=== PATIENT | female | born 1975 | race African-American/Black ===

== ENCOUNTER 2023-11-06 06:47 | Inpatient (IN) | payer MEDICAID, OTHER ==
[~2023-11-06] VITALS: Ht 167.6 cm; Wt 140.0 kg
[2023-11-06 07:40] LABS: Basophils # (auto) 0.1 10 ^3/uL (0-0.2); Eosinophils # (auto) 0 10 ^3/uL (0-0.8); Red Blood Cells 5.23 10^6/uL (4.0-5.20); Red Cell Distribution Width 19.8 % (11.8-14.3)
[2023-11-06 07:41] LABS: Basophils % (auto) 0.8 % (0.0-2.0); Eosinophils % (auto) 0.3 % (0.0-7.0); Hematocrit 34.9 % (36.0-46.0); Hemoglobin 10.3 g/dL (12.2-16.2); Lymphocytes # (auto) 2.1 10 ^3/uL (0.4-5.4); Lymphocytes % (auto) 18.3 % (10.0-50.0); Mean Corpuscular Hemoglobin 19.8 pg (28.0-32.0); Mean Corpuscular Hgb Conc. 29.6 g/dL (32.0-36.0); Mean Corpuscular Volume 66.8 fL (80.0-100.0); Monocytes # (auto) 0.5 10 ^3/uL (0-1.3); Monocytes % (auto) 4.7 % (0.0-12.0); Neutrophils # (auto) 8.9 10 ^3/uL (1.6-8.6); Neutrophils % (auto) 75.9 % (37.0-80.0); Nucleated Red Blood Cells % 0.1 %; White Blood Cell 11.7 10^3/uL (4.4-10.8)
[2023-11-06 07:53] LABS: Alanine Aminotransferase 11 U/L (7-40); Albumin 4.6 g/dL (3.2-4.8); Alkaline Phosphatase 85 U/L (46-116); Anion Gap 10 (5-15); Aspartate Aminotransferase 12 U/L (13-40); BUN/Creatinine Ratio 10.8 (10.0-20.0); Blood Urea Nitrogen 13 mg/dL (9-23); Calcium 9.9 mg/dL (8.5-10.1); Carbon Dioxide 22 mmol/L (20-30); Chloride 102 mmol/L (98-107); Glucose 205 mg/dL (74-106); Potassium 3.6 mmol/L (3.5-5.1); Sodium 134 mmol/L (136-145)
[2023-11-06 07:54] LABS: Bilirubin, Total 0.3 mg/dL (0.2-1.0); Total Protein 8.9 g/dL (5.7-8.2)
[2023-11-06 08:51] VITALS: PULSE 73; RESP 18; O2SAT 97
[2023-11-06] MEDS: PANTOPRAZOLE 40 MG/10 ML VIAL INJ IV ONE (09:05)
[2023-11-06] MEDS: PROCHLORPERAZINE EDISYLATE 5 MG/ML 2ML VIAL IV ONE (09:05)
[2023-11-06] MEDS: ASPirin 81 mg TAB PO ONE (09:05)
[2023-11-06 09:24] LABS: Hypochromia Marked; Platelet Estimate Increased
[2023-11-06 09:25] VITALS: PULSE 72; RESP 25; O2SAT 99
[2023-11-06] MEDS ORDERED: MORPHINE SULFATE 4 MG/ML SYR/VIAL IV PRN (11:00)
[2023-11-06] MEDS ORDERED: ACETAMINOPHEN 325 MG TAB PO PRN (11:00)
[2023-11-06] MEDS ORDERED: NITROGLYCERIN 0.4 MG SL TAB SL PRN (11:00)
[2023-11-06] MEDS: hydrALAZINE HCL 20 MG/ML VL IV ONE (11:53)
[2023-11-06] MEDS: ONDANSETRON HCL 4 MG/2 ML VIAL IV ONE (11:53)
[2023-11-06] MEDS: MORPHINE SULFATE 4 MG/ML SYR/VIAL IV ONE (11:55)
[2023-11-06] MEDS: ENOXAPARIN SOD 150 MG/1 ML SYRINGE SC SCH (11:59)
[2023-11-06 12:33] LABS: LDL Cholesterol 86 mg/dL (< 100); Triglycerides 60 mg/dL (< 150)
[2023-11-06 12:34] LABS: Cholesterol 147 mg/dL (< 200)
[2023-11-06 12:35] LABS: HDL Cholesterol 53 mg/dL (40-59)
[2023-11-06] MEDS ORDERED: DEXTROSE (50%) 50ML SYRG IV PRN (13:15)
[2023-11-06 13:42] LABS: INR 1.08 (0.9-1.15); Prothrombin Time 11.3 sec (9.3-11.8)
[2023-11-06] MEDS ORDERED: PIPERACILLIN-TAZOB 3.375GM 100 ML IV ONE (14:15)
[2023-11-06] MEDS: PIPERACILLIN-TAZOB 3.375GM 100 ML IV ONE (14:33)
[2023-11-06] MEDS: IOHEXOL 350 MG/ML 100ML IJ ONE (14:46)
[2023-11-06] MEDS: hydrALAZINE HCL 20 MG/ML VL IV PRN (14:52)
[2023-11-06] MEDS: SODIUM CHLORIDE 0.9% 1,000 ML IV ONE ×2 (16:18→18:45)
[2023-11-06] MEDS ORDERED: TRIA1CAP5 PO (16:44)
[2023-11-06] MEDS: ONDANSETRON HCL 4 MG/2 ML VIAL IV PRN (17:24)
[2023-11-06] MEDS: HYDROmorphone HCL 2 MG/ML VL/or syr IV PRN (17:24)
[2023-11-06] MEDS ORDERED: PIPERACILLIN-TAZOB 3.375GM 100 ML IV SCH (18:00)
[2023-11-06] MEDS: ACCU-CHEK COMFORT CURVE STRIP VI SCH (18:00)
[2023-11-06] MEDS: amLODIPine BESYLATE 5 MG TAB PO ONE (18:44)
[2023-11-06] MEDS: LABETALOL HCL 5 MG/ML 4ML SYRINGE IV ONE (18:45)
[2023-11-06] MEDS: InsuLIN REG 1unit/0.01ml Soln (100units/ml) SC SCH (18:47)
[2023-11-06 19:30] VITALS: PULSE 79; RESP 22; O2SAT 94
[2023-11-06] MEDS: METOPROLOL TARTRATE 25 MG TAB PO SCH (21:04)
[2023-11-06] MEDS: ATORVASTATIN 20 MG TAB PO SCH (21:04)
[2023-11-06] MEDS: PIPERACILLIN-TAZOB 3.375GM 100 ML IV SCH (21:04)
[2023-11-07] VITALS (9 sets, daily range): BP systolic 99–169; BP diastolic 56–105; PULSE 109–135; RESP 19–22; TEMP 97.3–98.6; O2SAT 98–100
[2023-11-07] MEDS ORDERED: SEMA2INJ3 SC (01:24)
[2023-11-07 07:21] LABS: Hematocrit 33.2 % (36.0-46.0); Hemoglobin 10.1 g/dL (12.2-16.2)
[2023-11-07 07:27] LABS: Mean Corpuscular Hemoglobin 20.1 pg (28.0-32.0); Mean Corpuscular Hgb Conc. 30.4 g/dL (32.0-36.0); Mean Corpuscular Volume 65.9 fL (80.0-100.0); Red Blood Cells 5.04 10^6/uL (4.0-5.20); Red Cell Distribution Width 19.9 % (11.8-14.3)
[2023-11-07 07:30] LABS: Alanine Aminotransferase 13 U/L (7-40); Albumin 4.2 g/dL (3.2-4.8); Alkaline Phosphatase 81 U/L (46-116); Anion Gap 9 (5-15); Aspartate Aminotransferase 32 U/L (13-40); BUN/Creatinine Ratio 13.4 (10.0-20.0); Blood Urea Nitrogen 16 mg/dL (9-23); Calcium 9.1 mg/dL (8.5-10.1); Carbon Dioxide 23 mmol/L (20-30); Chloride 105 mmol/L (98-107); Glucose 181 mg/dL (74-106); LDL Cholesterol 126 mg/dL (< 100); Potassium 3.6 mmol/L (3.5-5.1); Sodium 137 mmol/L (136-145); Triglycerides 71 mg/dL (< 150)
[2023-11-07 07:31] LABS: Bilirubin, Total 0.6 mg/dL (0.2-1.0); Cholesterol 191 mg/dL (< 200); HDL Cholesterol 54 mg/dL (40-59); Total Protein 8.2 g/dL (5.7-8.2)
[2023-11-07 07:49] LABS: White Blood Cell 45.2 10^3/uL (4.4-10.8)
[2023-11-07 07:50] LABS: Basophils % (manual) 0 (0.0-2.0); Blast Cells 0; Eosinophils % (manual) 0 (0-7); Metamyelocytes % 0; Myelocytes % 0; Promyelocytes % 0; Reactive Lymphocytes 0
[2023-11-07] MEDS: ADENOSINE 135 MG in GIVE UN-DILUTED 0 ML IV ONE (08:00)
[2023-11-07 09:00] LABS: Band Neutrophils % (manual) 17; Lymphocytes % (manual) 4 (10.0-50.0); Monocytes % (manual) 13 (0-12)
[2023-11-07 09:02] LABS: Hypochromia Moderate; Platelet Estimate Increased
[2023-11-07] MEDS: DOCUSATE SOD 100 MG CAP PO SCH (10:00)
[2023-11-07] MEDS ORDERED: ASPirin 81 mg TAB PO SCH (10:00)
[2023-11-07] MEDS ORDERED: amLODIPine BESYLATE 5 MG TAB PO SCH (10:00)
[2023-11-07 12:02] LABS: Sodium Urine < 10 mmol/L (40-220)
[2023-11-07 12:09] LABS: Amphetamine Screen, Urine Neg (NEGATIVE)
[2023-11-07 12:10] LABS: Barbiturate Scree,Urine Neg (NEGATIVE); Benzodiazephine Screen, Urine Neg (NEGATIVE); Cannabinoid Screen, Urine Pos (NEGATIVE); Cocaine Screen, Urine Neg (NEGATIVE); Opiate Scree,Urine Pos (NEGATIVE); Phencyclidine Screen, Urine Neg (NEGATIVE)
[2023-11-07 12:20] LABS: Creatinine, Urine 303.81 mg/dL (30.0-125.0)
[2023-11-07 12:42] LABS: Urine Bacteria FEW /hpf (None Seen); Urine Blood Negative /uL (Negative); Urine Clarity Turbid (Clear); Urine Color Yellow (Yellow); Urine Mucus FEW (None Seen); Urine Protein, UAD 1+ (Negative); Urine Specific Gravity 1.031 (1.001-1.035); Urine Urobilinogen Normal (Negative); Urine WBC 6 /hpf (0 - 5)
[2023-11-07] MEDS: PANTOPRAZOLE 40 MG/10 ML VIAL INJ IV ONE (12:49)
[2023-11-07] MEDS: HYDROmorphone HCL 2 MG/ML VL/or syr IV PRN (12:50)
[2023-11-07 12:53] LABS: Hematocrit 35.4 % (36.0-46.0); Hemoglobin 10.5 g/dL (12.2-16.2); Mean Corpuscular Hemoglobin 20.1 pg (28.0-32.0); Mean Corpuscular Hgb Conc. 29.8 g/dL (32.0-36.0); Mean Corpuscular Volume 67.5 fL (80.0-100.0); Red Blood Cells 5.24 10^6/uL (4.0-5.20)
[2023-11-07] MEDS: SODIUM CHLORIDE 0.9% 1,000 ML IV SCH (12:57)
[2023-11-07 12:58] LABS: Red Cell Distribution Width 20.1 % (11.8-14.3)
[2023-11-07 13:01] LABS: White Blood Cell 44.7 10^3/uL (4.4-10.8)
[2023-11-07 13:02] LABS: Basophils % (manual) 0 (0.0-2.0); Blast Cells 0; Eosinophils % (manual) 0 (0-7); Metamyelocytes % 0; Myelocytes % 0; Promyelocytes % 0; Reactive Lymphocytes 0
[2023-11-07 14:34] LABS: Band Neutrophils % (manual) 15; Lymphocytes % (manual) 8 (10.0-50.0); Monocytes % (manual) 4 (0-12)
[2023-11-07 14:35] LABS: Platelet Estimate Adequate
[2023-11-07 14:36] LABS: Anisocytosis Slight; Hypochromia Moderate
[2023-11-08] VITALS (25 sets, daily range): BP systolic 89–182; BP diastolic 33–105; PULSE 95–118; RESP 18–36; TEMP 97.8–101.3; O2SAT 96–100
[2023-11-08 07:12] LABS: Alanine Aminotransferase 11 U/L (7-40); Albumin 3.9 g/dL (3.2-4.8); Alkaline Phosphatase 118 U/L (46-116); Anion Gap 8 (5-15); BUN/Creatinine Ratio 14.7 (10.0-20.0); Calcium 9.1 mg/dL (8.7-10.4); Carbon Dioxide 22 mmol/L (20-30); Chloride 106 mmol/L (98-107); Glucose 142 mg/dL (74-106); Potassium 3.7 mmol/L (3.5-5.1); Sodium 136 mmol/L (136-145)
[2023-11-08 07:13] LABS: Aspartate Aminotransferase 26 U/L (13-40); Bilirubin, Total 0.9 mg/dL (0.2-1.0); Total Protein 7.8 g/dL (5.7-8.2)
[2023-11-08 07:14] LABS: Mean Corpuscular Volume 67.6 fL (80.0-100.0)
[2023-11-08 07:18] LABS: Hematocrit 34.1 % (36.0-46.0); Hemoglobin 10.1 g/dL (12.2-16.2); Mean Corpuscular Hgb Conc. 29.5 g/dL (32.0-36.0); Red Blood Cells 5.05 10^6/uL (4.0-5.20)
[2023-11-08 07:24] LABS: Blood Urea Nitrogen 29 mg/dL (9-23)
[2023-11-08 07:35] LABS: Red Cell Distribution Width 20.8 % (11.8-14.3)
[2023-11-08 07:37] LABS: White Blood Cell 45.6 10^3/uL (4.4-10.8)
[2023-11-08 07:39] LABS: Basophils % (manual) 0 (0.0-2.0); Blast Cells 0; Eosinophils % (manual) 0 (0-7); Metamyelocytes % 0; Myelocytes % 0; Promyelocytes % 0; Reactive Lymphocytes 0
[2023-11-08 08:06] LABS: Band Neutrophils % (manual) 1; Lymphocytes % (manual) 3 (10.0-50.0); Monocytes % (manual) 7 (0-12); Platelet Estimate Adequate
[2023-11-08] MEDS: PANTOPRAZOLE 40 MG/10 ML VIAL INJ IV SCH (10:29)
[2023-11-08] MEDS ORDERED: SODIUM CHLORIDE 0.9% 1,000 ML IV SCH ×3 (10:30→17:15)
[2023-11-08] MEDS: LIDOCAINE 2%HCL (LOCAL ANESTH.) INJ 10ml MDV ONE (12:20)
[2023-11-08] MEDS: CELECOXIB 100 MG CAP PO ONE (12:21)
[2023-11-08] MEDS: ACETAMINOPHEN IV 1000 MG/100ML (10MG/ML) IV ONE (12:21)
[2023-11-08] MEDS: GABAPENTIN 400 MG CAP PO ONE (12:21)
[2023-11-08] MEDS: EPINEPHrine HCL 1 MG/1 ML AMP ONE (12:45)
[2023-11-08] MEDS: BUPIVACAINE 0.25% INJ 50ML VIAL ONE (12:45)
[2023-11-08] MEDS ORDERED: GLYCOPYRROLATE 0.2 MG/ML 1ML VIAL ONE (12:49)
[2023-11-08] MEDS ORDERED: LIDOCAINE 2% (LOCAL ANESTH.) PF 5ml SDV ONE (12:49)
[2023-11-08] MEDS ORDERED: ONDANSETRON HCL 4 MG/2 ML VIAL ONE (12:49)
[2023-11-08] MEDS ORDERED: DexAMETHasone SOD PHOS 10MG/1ML VIAL INJ ONE (12:49)
[2023-11-08] MEDS ORDERED: PROPOFOL 10 MG/ML 20 ML IV ONE ×2 (12:49→14:18)
[2023-11-08] MEDS ORDERED: ROCURONIUM 10MG/ML 10ML VIAL IV ONE (12:49)
[2023-11-08] MEDS ORDERED: SUGAMMADEX 200mg/2ml Vial (100MG/ML) IV ONE (12:49)
[2023-11-08] MEDS ORDERED: LIDOCAINE HCL 2% TOP JELLY 5ML TOP ONE (12:50)
[2023-11-08] MEDS ORDERED: fentaNYL CITRATE 100 MCG/2 ML VL ONE (12:52)
[2023-11-08] MEDS ORDERED: KETAMINE 50mg/ML 1ml syringe ONE (12:52)
[2023-11-08] MEDS ORDERED: DICL1GEL59 TOP (13:31)
[2023-11-08] MEDS ORDERED: TOPI50TA53 PO (13:31)
[2023-11-08] MEDS ORDERED: GABA-339 PO (13:31)
[2023-11-08] MEDS ORDERED: HYDR25TA4 PO (13:31)
[2023-11-08] MEDS ORDERED: CYCL-839 PO (13:31)
[2023-11-08] MEDS ORDERED: RIZA10TA12 PO (13:31)
[2023-11-08] MEDS ORDERED: HYDR1CAP27 PO (13:31)
[2023-11-08] MEDS ORDERED: TRI05TP TOP (13:31)
[2023-11-08] MEDS: HEPARIN SODIUM (PORCINE) 5000 UNITS/ML 1ML VIAL ONE ×2 (14:15→20:45)
[2023-11-08] MEDS: POVIDONE IODINE 10 % TOPICAL OINT 30GM TOP ONE (14:20)
[2023-11-08] MEDS ORDERED: MORPHINE SULFATE 4 MG/ML SYR/VIAL IV PRN (15:00)
[2023-11-08] MEDS ORDERED: MIDAZOLAM DRIP 50 mg/50mL 50 ML IV SCH (15:00)
[2023-11-08] MEDS ORDERED: POTASSIUM CHLORIDE 20 MEQ in D5W/LACTATED RINGERS 1,000 ML IV SCH (15:00)
[2023-11-08 16:10] LABS: Base Excess -5.6 mmol/L (-2.0-2.0)
[2023-11-08 17:12] LABS: Albumin 3.7 g/dL (3.2-4.8); Alkaline Phosphatase 87 U/L (46-116); Anion Gap 6 (5-15); Aspartate Aminotransferase 22 U/L (13-40); Blood Urea Nitrogen 26 mg/dL (9-23); Calcium 8.9 mg/dL (8.7-10.4); Carbon Dioxide 21 mmol/L (20-30); Chloride 108 mmol/L (98-107); Glucose 164 mg/dL (74-106); Potassium 4.1 mmol/L (3.5-5.1); Sodium 135 mmol/L (136-145)
[2023-11-08 17:13] LABS: Alanine Aminotransferase 9 U/L (7-40); Bilirubin, Total 0.9 mg/dL (0.2-1.0); Total Protein 7.1 g/dL (5.7-8.2)
[2023-11-08 17:18] LABS: INR 1.08 (0.9-1.15); Prothrombin Time 11.3 sec (9.3-11.8)
[2023-11-08 17:22] LABS: Hematocrit 35.4 % (36.0-46.0); Hemoglobin 9.9 g/dL (12.2-16.2); Mean Corpuscular Hemoglobin 19.4 pg (28.0-32.0); Mean Corpuscular Hgb Conc. 27.9 g/dL (32.0-36.0); Mean Corpuscular Volume 69.6 fL (80.0-100.0); Red Blood Cells 5.08 10^6/uL (4.0-5.20)
[2023-11-08 17:23] LABS: Red Cell Distribution Width 20.3 % (11.8-14.3)
[2023-11-08 17:25] LABS: Basophils % (manual) 0 (0.0-2.0); Blast Cells 0; Eosinophils % (manual) 0 (0-7); Metamyelocytes % 0; Myelocytes % 0; Promyelocytes % 0; Reactive Lymphocytes 0; White Blood Cell 36.1 10^3/uL (4.4-10.8)
[2023-11-08] MEDS: SODIUM BICARB 50mEq/50ml Vial 50 ML in SOD CHL 0.45% 1,000 ML IV SCH (17:45)
[2023-11-08] MEDS: hydrALAZINE HCL 20 MG/ML VL IV ONE (18:00)
[2023-11-08] MEDS: SODIUM CHLORIDE 0.9% 1,000 ML IV ONE (18:18)
[2023-11-08 18:38] LABS: Anisocytosis Slight; Band Neutrophils % (manual) 25; Lymphocytes % (manual) 10 (10.0-50.0); Monocytes % (manual) 1 (0-12); Platelet Estimate Adequate
[2023-11-08 18:39] LABS: Hypochromia Moderate
[2023-11-08] MEDS: LIDOCAINE W/ EPINEPHRINE 1% 20ML VIAL ONE (20:44)
[2023-11-08] MEDS: metroNIDAZOLE 500MG/100ML 100 ML IV ONE (20:44)
[2023-11-08 20:58] LABS: Base Excess -1.9 mmol/L (-2.0-2.0)
[2023-11-08] MEDS: PROPOFOL 100 ML IV SCH (21:33)
[2023-11-08] MEDS ORDERED: ceFAZolin 2 GM/D5W50ml 50 ML IV SCH (22:00)
[2023-11-08] MEDS ORDERED: metroNIDAZOLE 500MG/100ML 100 ML IV SCH (22:00)
[2023-11-08 22:11] LABS: INR 1.09 (0.9-1.15); Partial Thromboplastin Time 33.2 SEC (24.5-34.5); Prothrombin Time 11.4 sec (9.3-11.8)
[2023-11-08] MEDS: HEPARIN DRIP/D5W 100UNITS/ML 250 ML IV SCH (22:27)
[2023-11-09] VITALS (105 sets, daily range): BP systolic 129–197; BP diastolic 64–151; PULSE 85–109; RESP 17–30; TEMP 97.5–101.1; O2SAT 92–100
[2023-11-09 01:14] LABS: Creatinine, Urine 133.82 mg/dL (30.0-125.0); Urine Protein/Creatinine Ratio 0.45
[2023-11-09] MEDS: ACETAMINOPHEN 325 MG TAB PO PRN (01:54)
[2023-11-09] MEDS: MIDAZOLAM DRIP 50 mg/50mL 50 ML IV SCH (01:54)
[2023-11-09 05:25] LABS: Hematocrit 30.6 % (36.0-46.0); Hemoglobin 9.1 g/dL (12.2-16.2); Mean Corpuscular Hgb Conc. 29.7 g/dL (32.0-36.0); Mean Corpuscular Volume 67.2 fL (80.0-100.0); Red Blood Cells 4.56 10^6/uL (4.0-5.20)
[2023-11-09 05:27] LABS: Red Cell Distribution Width 20.3 % (11.8-14.3)
[2023-11-09 05:29] LABS: Basophils % (manual) 0 (0.0-2.0); Blast Cells 0; Eosinophils % (manual) 0 (0-7); Metamyelocytes % 0; Myelocytes % 0; Promyelocytes % 0; Reactive Lymphocytes 0; White Blood Cell 40.5 10^3/uL (4.4-10.8)
[2023-11-09 05:42] LABS: Alanine Aminotransferase 10 U/L (7-40); Albumin 3.5 g/dL (3.2-4.8); Alkaline Phosphatase 77 U/L (46-116); Anion Gap 6 (5-15); Aspartate Aminotransferase 20 U/L (13-40); BUN/Creatinine Ratio 18.8 (10.0-20.0); Bilirubin, Total 0.7 mg/dL (0.2-1.0); Blood Urea Nitrogen 24 mg/dL (9-23); Calcium 8.6 mg/dL (8.7-10.4); Carbon Dioxide 23 mmol/L (20-30); Chloride 108 mmol/L (98-107); Glucose 168 mg/dL (74-106); INR 1.04 (0.9-1.15); Partial Thromboplastin Time 44.7 SEC (24.5-34.5); Potassium 3.9 mmol/L (3.5-5.1); Prothrombin Time 10.9 sec (9.3-11.8); Sodium 137 mmol/L (136-145); Total Protein 6.7 g/dL (5.7-8.2)
[2023-11-09 06:13] LABS: Band Neutrophils % (manual) 3; Hypochromia Moderate; Lymphocytes % (manual) 2 (10.0-50.0); Monocytes % (manual) 6 (0-12); Platelet Estimate Adequate
[2023-11-09 06:14] LABS: Anisocytosis Slight
[2023-11-09] MEDS: HEPARIN DRIP/D5W 100UNITS/ML 250 ML IV SCH (06:42)
[2023-11-09] MEDS: SUCCINYLCHOLINE CHLORIDE 20 MG/ML 10ML VIAL IV ONE (07:08)
[2023-11-09] MEDS: ROCURONIUM 10MG/ML 10ML VIAL IV ONE (07:09)
[2023-11-09 07:16] LABS: Base Excess -3.4 mmol/L (-2.0-2.0)
[2023-11-09] MEDS ORDERED: fentaNYL CITRATE 100 MCG/2 ML VL ONE (07:26)
[2023-11-09] MEDS ORDERED: KETAMINE 50mg/ML 10ml Vial 10 ML ONE (07:27)
[2023-11-09] MEDS ORDERED: MEPERIDINE HCL (50 MG/ML) 1 ML VIAL ONE ×2 (07:27→09:08)
[2023-11-09] MEDS ORDERED: MIDAZOLAM HCL 2MG/2ML 2ml VIAL (1mg/ml) ONE (07:27)
[2023-11-09] MEDS ORDERED: DexAMETHasone SOD PHOS 10MG/1ML VIAL INJ ONE (07:27)
[2023-11-09] MEDS ORDERED: PROPOFOL 10 MG/ML 20 ML IV ONE (07:40)
[2023-11-09] MEDS: POVIDONE IODINE 10 % TOPICAL OINT 30GM TOP ONE (09:12)
[2023-11-09] MEDS: fentaNYL Drip 2500mCg/250mlNS 250 ML IV SCH (10:22)
[2023-11-09] MEDS ORDERED: ACETAMINOPHEN IV 1000 MG/100ML (10MG/ML) IV PRN (10:30)
[2023-11-09] MEDS: LIDOCAINE 1% (LOCAL ANESTH.) PF 5ml SDV ID ONE (11:36)
[2023-11-09] MEDS: NITROGLYCERIN 50MG/250ML 250 ML IV SCH (12:51)
[2023-11-09 14:04] LABS: INR 1.05 (0.9-1.15)
[2023-11-09 15:56] LABS: Hematocrit 27.2 % (36.0-46.0); Hemoglobin 8.3 g/dL (12.2-16.2); Mean Corpuscular Hemoglobin 20.1 pg (28.0-32.0); Mean Corpuscular Hgb Conc. 30.5 g/dL (32.0-36.0); Red Blood Cells 4.12 10^6/uL (4.0-5.20); Red Cell Distribution Width 19.9 % (11.8-14.3)
[2023-11-09 16:01] LABS: White Blood Cell 40.4 10^3/uL (4.4-10.8)
[2023-11-09 16:03] LABS: Basophils % (manual) 0 (0.0-2.0); Blast Cells 0; Eosinophils % (manual) 0 (0-7); Metamyelocytes % 0; Myelocytes % 0; Promyelocytes % 0; Reactive Lymphocytes 0
[2023-11-09 16:21] LABS: INR 1.01 (0.9-1.15); Partial Thromboplastin Time 57.2 SEC (24.5-34.5); Prothrombin Time 10.6 sec (9.3-11.8)
[2023-11-09 16:27] LABS: Band Neutrophils % (manual) 11; Lymphocytes % (manual) 5 (10.0-50.0); Monocytes % (manual) 4 (0-12)
[2023-11-09 16:29] LABS: Hypochromia Moderate; Platelet Estimate Adequate
[2023-11-09] MEDS ORDERED: CLINIMIX PER PHARMACY 0 ML IV SCH (17:30)
[2023-11-09] MEDS: AMINO ACID INFUSION IN D10W 1,000 ML IV SCH (21:35)
[2023-11-09] MEDS: SODIUM CHLOR 0.9% PF (SALINE LOCK) 10ML VIAL/SYR IV SCH (22:00)
[2023-11-09 22:12] LABS: INR 0.99 (0.9-1.15); Partial Thromboplastin Time 64.6 SEC (24.5-34.5); Prothrombin Time 10.4 sec (9.3-11.8)
[2023-11-10] VITALS (106 sets, daily range): BP systolic 112–165; BP diastolic 65–83; PULSE 84–98; RESP 18–21; TEMP 98.5–99.9; O2SAT 94–100
[2023-11-10 05:06] LABS: Hematocrit 24.4 % (36.0-46.0); Hemoglobin 7.3 g/dL (12.2-16.2); Mean Corpuscular Hemoglobin 19.9 pg (28.0-32.0); Mean Corpuscular Volume 66.4 fL (80.0-100.0); Red Blood Cells 3.67 10^6/uL (4.0-5.20)
[2023-11-10 05:11] LABS: Red Cell Distribution Width 20.1 % (11.8-14.3)
[2023-11-10 05:14] LABS: White Blood Cell 35.3 10^3/uL (4.4-10.8)
[2023-11-10 05:24] LABS: Alkaline Phosphatase 90 U/L (46-116); Anion Gap 6 (5-15); Calcium 8.1 mg/dL (8.7-10.4); Carbon Dioxide 27 mmol/L (20-30); Chloride 105 mmol/L (98-107); Glucose 163 mg/dL (74-106); Potassium 3.6 mmol/L (3.5-5.1); Prothrombin Time 10.5 sec (9.3-11.8); Sodium 138 mmol/L (136-145)
[2023-11-10 05:25] LABS: BUN/Creatinine Ratio 19.1 (10.0-20.0); Blood Urea Nitrogen 18 mg/dL (9-23); Magnesium 1.9 mg/dL (1.6-2.6)
[2023-11-10 05:26] LABS: Albumin 3.2 g/dL (3.2-4.8); Aspartate Aminotransferase 13 U/L (13-40); Partial Thromboplastin Time 79.1 SEC (24.5-34.5)
[2023-11-10 05:27] LABS: Alanine Aminotransferase < 9 U/L (7-40); Bilirubin, Total 0.4 mg/dL (0.2-1.0); Phosphorus 1.9 mg/dL (2.4-5.1); Total Protein 6.1 g/dL (5.7-8.2)
[2023-11-10 05:39] LABS: Basophils % (manual) 0 (0.0-2.0); Blast Cells 0; Eosinophils % (manual) 0 (0-7); Metamyelocytes % 0; Myelocytes % 0; Promyelocytes % 0; Reactive Lymphocytes 0
[2023-11-10 05:41] LABS: Band Neutrophils % (manual) 1; Lymphocytes % (manual) 6 (10.0-50.0); Monocytes % (manual) 6 (0-12)
[2023-11-10 05:42] LABS: Hypochromia Moderate; Platelet Estimate Adequate; Stomatocytes Few
[2023-11-10 07:23] LABS: Base Excess 2.9 mmol/L (-2.0-2.0)
[2023-11-10] MEDS: HEPARIN DRIP/D5W 100UNITS/ML 250 ML IV SCH (09:30)
[2023-11-10 10:54] LABS: Hematocrit 23.4 % (36.0-46.0); Hemoglobin 7.4 g/dL (12.2-16.2)
[2023-11-10] MEDS: POTASSIUM PHOSPHATE 44 MEQ in D5W 5% 250 ML IV ONE (11:00)
[2023-11-10] MEDS: PIPERACILLIN-TAZOB 3.375GM 100 ML IV ONE (15:19)
[2023-11-10 15:36] LABS: Hematocrit 29.4 % (36.0-46.0); Hemoglobin 8.4 g/dL (12.2-16.2)
[2023-11-10 15:47] LABS: INR 0.98 (0.9-1.15); Partial Thromboplastin Time 62.2 SEC (24.5-34.5); Prothrombin Time 10.3 sec (9.3-11.8)
[2023-11-10] MEDS: PIPERACILLIN-TAZOB 3.375GM 100 ML IV SCH (18:00)
[2023-11-10 21:59] LABS: Hemoglobin 7.7 g/dL (12.2-16.2)
[2023-11-10 22:01] LABS: Hematocrit 23.2 % (36.0-46.0)
[2023-11-10 23:58] LABS: INR 0.98 (0.9-1.15); Partial Thromboplastin Time 61.7 SEC (24.5-34.5); Prothrombin Time 10.3 sec (9.3-11.8)
[2023-11-11] VITALS (113 sets, daily range): BP systolic 104–159; BP diastolic 50–87; PULSE 78–100; RESP 15–26; TEMP 96.8–100.2; O2SAT 75–100
[2023-11-11 03:40] LABS: Hemoglobin 7.3 g/dL (12.2-16.2); Mean Corpuscular Volume 65.8 fL (80.0-100.0)
[2023-11-11 03:43] LABS: Hematocrit 24.8 % (36.0-46.0); Mean Corpuscular Hemoglobin 19.4 pg (28.0-32.0); Mean Corpuscular Hgb Conc. 29.5 g/dL (32.0-36.0); Red Blood Cells 3.76 10^6/uL (4.0-5.20); Red Cell Distribution Width 19.8 % (11.8-14.3)
[2023-11-11 03:48] LABS: White Blood Cell 30.3 10^3/uL (4.4-10.8)
[2023-11-11 03:50] LABS: Basophils % (manual) 0 (0.0-2.0); Blast Cells 0; Eosinophils % (manual) 0 (0-7); Promyelocytes % 0; Reactive Lymphocytes 0
[2023-11-11 03:57] LABS: Albumin 3.2 g/dL (3.2-4.8); Alkaline Phosphatase 88 U/L (46-116); Anion Gap 5 (5-15); Aspartate Aminotransferase 13 U/L (13-40); BUN/Creatinine Ratio 18.7 (10.0-20.0); Blood Urea Nitrogen 14 mg/dL (9-23); Calcium 8.4 mg/dL (8.7-10.4); Carbon Dioxide 30 mmol/L (20-30); Chloride 101 mmol/L (98-107); Glucose 163 mg/dL (74-106); Potassium 3.4 mmol/L (3.5-5.1); Sodium 136 mmol/L (136-145)
[2023-11-11 03:58] LABS: Alanine Aminotransferase < 9 U/L (7-40); Bilirubin, Total 0.5 mg/dL (0.2-1.0); Phosphorus 1.9 mg/dL (2.4-5.1); Total Protein 6.2 g/dL (5.7-8.2)
[2023-11-11 04:02] LABS: Magnesium 1.8 mg/dL (1.6-2.6)
[2023-11-11 04:35] LABS: Band Neutrophils % (manual) 2; Hypochromia Moderate; Lymphocytes % (manual) 6 (10.0-50.0); Metamyelocytes % 1; Monocytes % (manual) 7 (0-12); Myelocytes % 4; Platelet Estimate Adequate
[2023-11-11 07:36] LABS: INR 0.96 (0.9-1.15); Partial Thromboplastin Time 54.3 SEC (24.5-34.5); Prothrombin Time 10.1 sec (9.3-11.8)
[2023-11-11] MEDS: POTASSIUM CHL 20MEQ/100ML 100 ML IV SCH (11:00)
[2023-11-11] MEDS: POTASSIUM PHOSPHATE 22 MEQ in SODIUM CHL 0.9% 100 ML IV ONE (14:19)
[2023-11-11 16:48] LABS: Hematocrit 21.6 % (36.0-46.0)
[2023-11-12] VITALS (109 sets, daily range): BP systolic 100–157; BP diastolic 52–85; PULSE 70–86; RESP 15–26; TEMP 98.1–100; O2SAT 97–100
[2023-11-12 03:57] LABS: Hemoglobin 7.5 g/dL (12.2-16.2); Mean Corpuscular Hemoglobin 21.4 pg (28.0-32.0); Mean Corpuscular Hgb Conc. 31.1 g/dL (32.0-36.0); Mean Corpuscular Volume 68.7 fL (80.0-100.0); Red Blood Cells 3.49 10^6/uL (4.0-5.20)
[2023-11-12 04:12] LABS: Alkaline Phosphatase 86 U/L (46-116); Anion Gap 5 (5-15); Aspartate Aminotransferase 16 U/L (13-40); BUN/Creatinine Ratio 16.4 (10.0-20.0); Bilirubin, Total 0.6 mg/dL (0.2-1.0); Blood Urea Nitrogen 10 mg/dL (9-23); Calcium 8.2 mg/dL (8.7-10.4); Carbon Dioxide 31 mmol/L (20-30); Chloride 100 mmol/L (98-107); Glucose 125 mg/dL (74-106); Magnesium 1.7 mg/dL (1.6-2.6); Phosphorus 2.6 mg/dL (2.4-5.1); Potassium 3.6 mmol/L (3.5-5.1); Sodium 136 mmol/L (136-145)
[2023-11-12 04:13] LABS: Total Protein 5.7 g/dL (5.7-8.2)
[2023-11-12 04:14] LABS: Alanine Aminotransferase < 9 U/L (7-40)
[2023-11-12 04:18] LABS: INR 0.99 (0.9-1.15); Partial Thromboplastin Time 51.3 SEC (24.5-34.5); Prothrombin Time 10.4 sec (9.3-11.8)
[2023-11-12 04:24] LABS: Red Cell Distribution Width 21.6 % (11.8-14.3); White Blood Cell 31.9 10^3/uL (4.4-10.8)
[2023-11-12 04:26] LABS: Basophils % (manual) 0 (0.0-2.0); Blast Cells 0; Eosinophils % (manual) 0 (0-7); Metamyelocytes % 0; Myelocytes % 0; Promyelocytes % 0; Reactive Lymphocytes 0
[2023-11-12 05:29] LABS: Anisocytosis Slight; Band Neutrophils % (manual) 5; Hypochromia Moderate; Lymphocytes % (manual) 8 (10.0-50.0); Monocytes % (manual) 4 (0-12); Platelet Estimate Adequate
[2023-11-12 05:30] LABS: Large Platelets FEW; Stomatocytes Few
[2023-11-12 06:57] LABS: Base Excess 5.1 mmol/L (-2.0-2.0)
[2023-11-12] MEDS ORDERED: TPN PER PHARMACY 0 ML IV SCH (15:15)
[2023-11-12] MEDS: FLUCONAZOLE 200MG/100ML 100 ML IV ONE (16:54)
[2023-11-12] MEDS ORDERED: AMINO ACID INFUSION IN D5W 1,000 ML IV SCH (20:00)
[2023-11-12] MEDS: AMINO ACID INFUSION IN D5W 1,000 ML IV NR (20:01)
[2023-11-12] MEDS: ENOXAPARIN SOD 150 MG/1 ML SYRINGE SC SCH (21:04)
[2023-11-13] VITALS (108 sets, daily range): BP systolic 96–153; BP diastolic 44–95; PULSE 63–93; RESP 17–25; TEMP 97.5–100; O2SAT 91–100
[2023-11-13 03:59] LABS: Hemoglobin 7.5 g/dL (12.2-16.2)
[2023-11-13 04:02] LABS: Hematocrit 24.6 % (36.0-46.0); Mean Corpuscular Hemoglobin 21.3 pg (28.0-32.0); Mean Corpuscular Hgb Conc. 30.6 g/dL (32.0-36.0); Mean Corpuscular Volume 69.6 fL (80.0-100.0); Red Blood Cells 3.53 10^6/uL (4.0-5.20); White Blood Cell 25.8 10^3/uL (4.4-10.8)
[2023-11-13 04:21] LABS: Basophils % (manual) 0 (0.0-2.0); Blast Cells 0; Metamyelocytes % 0; Promyelocytes % 0; Reactive Lymphocytes 0
[2023-11-13 04:44] LABS: Alanine Aminotransferase 12 U/L (7-40); Alkaline Phosphatase 107 U/L (46-116); Anion Gap 3 (5-15); Aspartate Aminotransferase 20 U/L (13-40); BUN/Creatinine Ratio 14.8 (10.0-20.0); Blood Urea Nitrogen 8 mg/dL (9-23); Calcium 8.8 mg/dL (8.7-10.4); Carbon Dioxide 33 mmol/L (20-30); Chloride 100 mmol/L (98-107); Glucose 122 mg/dL (74-106); Magnesium 1.8 mg/dL (1.6-2.6); Potassium 3.6 mmol/L (3.5-5.1); Sodium 136 mmol/L (136-145)
[2023-11-13 04:45] LABS: Bilirubin, Total 0.6 mg/dL (0.2-1.0); Total Protein 5.8 g/dL (5.7-8.2)
[2023-11-13 06:57] LABS: Band Neutrophils % (manual) 4; Eosinophils % (manual) 2 (0-7); Lymphocytes % (manual) 4 (10.0-50.0); Myelocytes % 3
[2023-11-13 06:58] LABS: Anisocytosis Slight; Hypochromia Moderate; Monocytes % (manual) 6 (0-12); Platelet Estimate Adequate; Stomatocytes Moderate
[2023-11-13 06:59] LABS: Large Platelets FEW
[2023-11-13 07:51] LABS: Base Excess 6.9 mmol/L (-2.0-2.0)
[2023-11-13] MEDS: PROPOFOL 100 ML IV SCH (08:07)
[2023-11-13] MEDS: FLUCONAZOLE 200MG/100ML 100 ML IV SCH (10:49)
[2023-11-13] MEDS: TPN PER PHARMACY IV NR (21:18)
[2023-11-13] MEDS: PANTOPRAZOLE 40 MG/10 ML VIAL INJ IV SCH (22:00)
[2023-11-14] VITALS (107 sets, daily range): BP systolic 107–205; BP diastolic 52–109; PULSE 71–127; RESP 16–37; TEMP 97.7–100; O2SAT 92–100
[2023-11-14 04:14] LABS: Hematocrit 22.8 % (36.0-46.0); Mean Corpuscular Hemoglobin 21.4 pg (28.0-32.0); Mean Corpuscular Hgb Conc. 30.9 g/dL (32.0-36.0); Mean Corpuscular Volume 69.1 fL (80.0-100.0); Red Blood Cells 3.29 10^6/uL (4.0-5.20); White Blood Cell 23.5 10^3/uL (4.4-10.8)
[2023-11-14 04:18] LABS: Red Cell Distribution Width 21.9 % (11.8-14.3)
[2023-11-14 04:19] LABS: Basophils % (manual) 0 (0.0-2.0); Blast Cells 0; Promyelocytes % 0; Reactive Lymphocytes 0
[2023-11-14 04:37] LABS: Alanine Aminotransferase 16 U/L (7-40); Alkaline Phosphatase 99 U/L (46-116); Anion Gap 5 (5-15); BUN/Creatinine Ratio 18.5 (10.0-20.0); Blood Urea Nitrogen 10 mg/dL (9-23); Calcium 8.6 mg/dL (8.7-10.4); Carbon Dioxide 32 mmol/L (20-30); Chloride 101 mmol/L (98-107); Glucose 130 mg/dL (74-106); Magnesium 1.8 mg/dL (1.6-2.6); Potassium 3.2 mmol/L (3.5-5.1); Sodium 138 mmol/L (136-145)
[2023-11-14 04:38] LABS: Albumin 2.9 g/dL (3.2-4.8); Aspartate Aminotransferase 20 U/L (13-40); Bilirubin, Total 0.5 mg/dL (0.2-1.0); Phosphorus 3.5 mg/dL (2.4-5.1); Total Protein 5.7 g/dL (5.7-8.2)
[2023-11-14 04:55] LABS: Triglycerides 142 mg/dL (< 150)
[2023-11-14 05:10] LABS: Anisocytosis Slight; Band Neutrophils % (manual) 10; Eosinophils % (manual) 3 (0-7); Hypochromia Moderate; Lymphocytes % (manual) 8 (10.0-50.0); Metamyelocytes % 3; Monocytes % (manual) 8 (0-12); Myelocytes % 3; Platelet Estimate Adequate
[2023-11-14 05:11] LABS: Large Platelets FEW; Stomatocytes Many; Target Cell FEW
[2023-11-14] MEDS: POTASSIUM CHL 20MEQ/100ML 100 ML IV ONE (05:58)
[2023-11-14 07:28] LABS: Base Excess 7.5 mmol/L (-2.0-2.0)
[2023-11-14] MEDS: LABETALOL HCL 5 MG/ML 4ML SYRINGE IV ONE (08:52)
[2023-11-14] MEDS: LABETALOL HCL 5 MG/ML 4ML SYRINGE IV PRN (08:53)
[2023-11-14 10:18] LABS: Base Excess 4.7 mmol/L (-2.0-2.0)
[2023-11-14] MEDS: POTASSIUM CHL 20MEQ/100ML 100 ML IV SCH (10:25)
[2023-11-14 11:04] LABS: Hemoglobin 8.3 g/dL (12.2-16.2)
[2023-11-14 11:07] LABS: Hematocrit 27.7 % (36.0-46.0)
[2023-11-14] MEDS: IRON SUCROSE COMPLEX 100 ML IV SCH (12:00)
[2023-11-14] MEDS: FUROSEMIDE 20 MG/2 ML VIAL IV ONE (12:35)
[2023-11-14] MEDS: TPN PER PHARMACY IV NR (21:25)
[2023-11-15] VITALS (108 sets, daily range): BP systolic 107–171; BP diastolic 50–90; PULSE 69–90; RESP 16–25; TEMP 98.1–101.1; O2SAT 91–100
[2023-11-15 04:10] LABS: Hematocrit 22.6 % (36.0-46.0); Mean Corpuscular Hemoglobin 21.2 pg (28.0-32.0); Mean Corpuscular Hgb Conc. 30.5 g/dL (32.0-36.0); Mean Corpuscular Volume 69.4 fL (80.0-100.0); Red Blood Cells 3.26 10^6/uL (4.0-5.20); White Blood Cell 19.9 10^3/uL (4.4-10.8)
[2023-11-15 04:15] LABS: Alanine Aminotransferase 24 U/L (7-40); Alkaline Phosphatase 123 U/L (46-116); Anion Gap 4 (5-15); Aspartate Aminotransferase 43 U/L (13-40); Blood Urea Nitrogen 14 mg/dL (9-23); Calcium 8.8 mg/dL (8.7-10.4); Carbon Dioxide 31 mmol/L (20-30); Chloride 104 mmol/L (98-107); Glucose 132 mg/dL (74-106); Magnesium 2.2 mg/dL (1.6-2.6); Potassium 3.7 mmol/L (3.5-5.1); Sodium 139 mmol/L (136-145)
[2023-11-15 04:16] LABS: Albumin 2.9 g/dL (3.2-4.8); Bilirubin, Total 0.5 mg/dL (0.2-1.0); Total Protein 5.9 g/dL (5.7-8.2)
[2023-11-15 04:41] LABS: Red Cell Distribution Width 22.3 % (11.8-14.3)
[2023-11-15 04:42] LABS: Hemoglobin 6.9 g/dL (12.2-16.2)
[2023-11-15 04:44] LABS: Basophils % (manual) 0 (0.0-2.0); Blast Cells 0; Promyelocytes % 0; Reactive Lymphocytes 0
[2023-11-15 05:00] LABS: Phosphorus 3.1 mg/dL (2.4-5.1)
[2023-11-15 07:49] LABS: Base Excess 4.7 mmol/L (-2.0-2.0)
[2023-11-15 08:47] LABS: Band Neutrophils % (manual) 24; Eosinophils % (manual) 5 (0-7); Hypochromia Moderate; Lymphocytes % (manual) 8 (10.0-50.0); Metamyelocytes % 3; Monocytes % (manual) 6 (0-12); Myelocytes % 1; Platelet Estimate Adequate
[2023-11-15 08:48] LABS: Anisocytosis Slight
[2023-11-15] MEDS: FUROSEMIDE 20 MG/2 ML VIAL IV SCH (12:13)
[2023-11-15] MEDS: MICAFUNGIN SODIUM 100 MG in SODIUM CHL 0.9% 100 ML IV ONE (17:40)
[2023-11-15] MEDS: ACETAMINOPHEN IV 1000 MG/100ML (10MG/ML) IV ONE (21:08)
[2023-11-15] MEDS: TPN PER PHARMACY IV NR (21:25)
[2023-11-16] VITALS (109 sets, daily range): BP systolic 102–200; BP diastolic 49–115; PULSE 76–102; RESP 12–27; TEMP 99.1–101.3; O2SAT 90–100
[2023-11-16 00:27] LABS: Hematocrit 25.9 % (36.0-46.0); Hemoglobin 8.1 g/dL (12.2-16.2)
[2023-11-16 04:38] LABS: Alanine Aminotransferase 40 U/L (7-40); Alkaline Phosphatase 126 U/L (46-116); Anion Gap 6 (5-15); BUN/Creatinine Ratio 26.3 (10.0-20.0); Blood Urea Nitrogen 15 mg/dL (9-23); Calcium 8.8 mg/dL (8.7-10.4); Carbon Dioxide 29 mmol/L (20-30); Chloride 104 mmol/L (98-107); Glucose 129 mg/dL (74-106); Potassium 4.3 mmol/L (3.5-5.1); Sodium 139 mmol/L (136-145)
[2023-11-16 04:39] LABS: Albumin 3.1 g/dL (3.2-4.8); Aspartate Aminotransferase 54 U/L (13-40); Bilirubin, Total 0.5 mg/dL (0.2-1.0); Total Protein 6.4 g/dL (5.7-8.2)
[2023-11-16 04:59] LABS: Hemoglobin 8.3 g/dL (12.2-16.2)
[2023-11-16 05:00] LABS: Hematocrit 26.8 % (36.0-46.0); Mean Corpuscular Hemoglobin 21.8 pg (28.0-32.0); Mean Corpuscular Hgb Conc. 30.9 g/dL (32.0-36.0); Mean Corpuscular Volume 70.3 fL (80.0-100.0); Red Blood Cells 3.81 10^6/uL (4.0-5.20); White Blood Cell 23.2 10^3/uL (4.4-10.8)
[2023-11-16 05:02] LABS: Basophils % (manual) 0 (0.0-2.0); Blast Cells 0; Eosinophils % (manual) 0 (0-7)
[2023-11-16 05:05] LABS: Phosphorus 3.5 mg/dL (2.4-5.1)
[2023-11-16 06:36] LABS: Anisocytosis Slight; Band Neutrophils % (manual) 3; Hypochromia Moderate; Lymphocytes % (manual) 6 (10.0-50.0); Metamyelocytes % 1; Monocytes % (manual) 2 (0-12); Myelocytes % 1; Platelet Estimate Adequate; Promyelocytes % 1; Reactive Lymphocytes 1
[2023-11-16 06:39] LABS: Large Platelets FEW; Stomatocytes Moderate
[2023-11-16 08:49] LABS: Base Excess 3.4 mmol/L (-2.0-2.0)
[2023-11-16] MEDS: ACETAMINOPHEN 650 MG RECT SUPP PR PRN (10:04)
[2023-11-16] MEDS: MICAFUNGIN SODIUM 100 MG in SODIUM CHL 0.9% 100 ML IV SCH (10:07)
[2023-11-16] MEDS: TPN PER PHARMACY IV NR (20:38)
[2023-11-17] VITALS (108 sets, daily range): BP systolic 107–192; BP diastolic 64–126; PULSE 79–107; RESP 14–29; TEMP 98.4–101.1; O2SAT 94–100
[2023-11-17 04:10] LABS: Alanine Aminotransferase 56 U/L (7-40); Albumin 3.2 g/dL (3.2-4.8); Alkaline Phosphatase 126 U/L (46-116); Anion Gap 7 (5-15); Aspartate Aminotransferase 62 U/L (13-40); BUN/Creatinine Ratio 28.3 (10.0-20.0); Bilirubin, Total 0.5 mg/dL (0.2-1.0); Blood Urea Nitrogen 17 mg/dL (9-23); Calcium 8.9 mg/dL (8.7-10.4); Carbon Dioxide 28 mmol/L (20-30); Chloride 103 mmol/L (98-107); Glucose 153 mg/dL (74-106); Potassium 4.5 mmol/L (3.5-5.1); Sodium 138 mmol/L (136-145)
[2023-11-17 04:11] LABS: Total Protein 6.9 g/dL (5.7-8.2)
[2023-11-17 05:03] LABS: Phosphorus 3.5 mg/dL (2.4-5.1)
[2023-11-17 07:46] LABS: Base Excess 1.9 mmol/L (-2.0-2.0)
[2023-11-17 15:37] LABS: Anion Gap 5 (5-15); Carbon Dioxide 27 mmol/L (20-30); Chloride 105 mmol/L (98-107); Potassium 4.3 mmol/L (3.5-5.1); Sodium 137 mmol/L (136-145)
[2023-11-17 15:38] LABS: Calcium 8.7 mg/dL (8.7-10.4)
[2023-11-17 15:41] LABS: Hematocrit 27.9 % (36.0-46.0); Hemoglobin 8.6 g/dL (12.2-16.2)
[2023-11-17 15:43] LABS: BUN/Creatinine Ratio 33.3 (10.0-20.0); Blood Urea Nitrogen 19 mg/dL (9-23); Glucose 151 mg/dL (74-106); Red Blood Cells 3.93 10^6/uL (4.0-5.20); Red Cell Distribution Width 23.3 % (11.8-14.3); White Blood Cell 20.3 10^3/uL (4.4-10.8)
[2023-11-17 15:45] LABS: Basophils % (manual) 0 (0.0-2.0); Blast Cells 0; Promyelocytes % 0; Reactive Lymphocytes 0
[2023-11-17 17:28] LABS: Band Neutrophils % (manual) 7; Lymphocytes % (manual) 7 (10.0-50.0); Monocytes % (manual) 8 (0-12)
[2023-11-17 17:29] LABS: Anisocytosis Slight; Eosinophils % (manual) 2 (0-7); Hypochromia Moderate; Metamyelocytes % 3; Myelocytes % 1; Platelet Estimate Adequate
[2023-11-17] MEDS: TPN PER PHARMACY IV NR (19:58)
[2023-11-18] VITALS (108 sets, daily range): BP systolic 106–183; BP diastolic 62–115; PULSE 79–103; RESP 14–29; TEMP 98.4–99.7; O2SAT 92–100
[2023-11-18] MEDS: fentaNYL Drip 2500mCg/250mlNS 250 ML IV SCH (03:16)
[2023-11-18 04:09] LABS: Alkaline Phosphatase 110 U/L (46-116); Anion Gap 8 (5-15); Blood Urea Nitrogen 18 mg/dL (9-23); Calcium 8.4 mg/dL (8.7-10.4); Carbon Dioxide 24 mmol/L (20-30); Chloride 97 mmol/L (98-107); Glucose 196 mg/dL (74-106); Potassium 3.9 mmol/L (3.5-5.1)
[2023-11-18 04:10] LABS: Magnesium 1.9 mg/dL (1.6-2.6)
[2023-11-18 04:11] LABS: Albumin 3.1 g/dL (3.2-4.8)
[2023-11-18 04:12] LABS: Bilirubin, Total 0.4 mg/dL (0.2-1.0); Total Protein 6.4 g/dL (5.7-8.2)
[2023-11-18 04:41] LABS: Sodium 129 mmol/L (136-145)
[2023-11-18 07:01] LABS: Base Excess -0.6 mmol/L (-2.0-2.0)
[2023-11-18 08:29] LABS: Alanine Aminotransferase 35 U/L (7-40)
[2023-11-18 08:32] LABS: Aspartate Aminotransferase 29 U/L (13-40); Phosphorus 3.1 mg/dL (2.4-5.1)
[2023-11-18] MEDS: TPN PER PHARMACY IV NR (20:46)
[2023-11-19] VITALS (107 sets, daily range): BP systolic 102–176; BP diastolic 63–127; PULSE 82–103; RESP 14–32; TEMP 97.2–99.3; O2SAT 95–100
[2023-11-19 03:59] LABS: Alanine Aminotransferase 31 U/L (7-40); Albumin 3.1 g/dL (3.2-4.8); Alkaline Phosphatase 112 U/L (46-116); Anion Gap 7 (5-15); Aspartate Aminotransferase 28 U/L (13-40); Blood Urea Nitrogen 22 mg/dL (9-23); Calcium 8.9 mg/dL (8.7-10.4); Carbon Dioxide 24 mmol/L (20-30); Chloride 104 mmol/L (98-107); Glucose 145 mg/dL (74-106); Potassium 4.5 mmol/L (3.5-5.1)
[2023-11-19 04:00] LABS: Bilirubin, Total 0.4 mg/dL (0.2-1.0); Phosphorus 3.9 mg/dL (2.4-5.1); Total Protein 6.9 g/dL (5.7-8.2)
[2023-11-19 04:07] LABS: Sodium 135 mmol/L (136-145)
[2023-11-19 04:25] LABS: Triglycerides 250 mg/dL (< 150)
[2023-11-19 06:54] LABS: Basophils # (auto) 0.1 10 ^3/uL (0-0.2); Eosinophils # (auto) 0.3 10 ^3/uL (0-0.8); Hemoglobin 8.4 g/dL (12.2-16.2); Monocytes # (auto) 1.1 10 ^3/uL (0-1.3); Nucleated Red Blood Cells % 0.1 %; White Blood Cell 15.7 10^3/uL (4.4-10.8)
[2023-11-19 06:57] LABS: Basophils % (auto) 0.6 % (0.0-2.0); Eosinophils % (auto) 1.6 % (0.0-7.0); Hematocrit 27.7 % (36.0-46.0); Lymphocytes # (auto) 1.1 10 ^3/uL (0.4-5.4); Lymphocytes % (auto) 7.1 % (10.0-50.0); Mean Corpuscular Hemoglobin 21.9 pg (28.0-32.0); Mean Corpuscular Hgb Conc. 30.5 g/dL (32.0-36.0); Mean Corpuscular Volume 71.7 fL (80.0-100.0); Monocytes % (auto) 7.1 % (0.0-12.0); Neutrophils # (auto) 13.2 10 ^3/uL (1.6-8.6); Neutrophils % (auto) 83.6 % (37.0-80.0); Red Blood Cells 3.86 10^6/uL (4.0-5.20)
[2023-11-19 07:06] LABS: Red Cell Distribution Width 23.4 % (11.8-14.3)
[2023-11-19 07:58] LABS: Base Excess -0.4 mmol/L (-2.0-2.0)
[2023-11-19] MEDS: TPN PER PHARMACY IV NR (19:31)
[2023-11-20] VITALS (107 sets, daily range): BP systolic 87–240; BP diastolic 40–182; PULSE 75–120; RESP 15–38; TEMP 97.7–99.5; O2SAT 94–100
[2023-11-20 04:01] LABS: Basophils # (auto) 0.2 10 ^3/uL (0-0.2); Eosinophils # (auto) 0.2 10 ^3/uL (0-0.8); Hematocrit 26.2 % (36.0-46.0); Hemoglobin 8.2 g/dL (12.2-16.2); Neutrophils # (auto) 10.7 10 ^3/uL (1.6-8.6)
[2023-11-20 04:04] LABS: Basophils % (auto) 1.3 % (0.0-2.0); Eosinophils % (auto) 1.7 % (0.0-7.0); Lymphocytes # (auto) 1.3 10 ^3/uL (0.4-5.4); Lymphocytes % (auto) 9.5 % (10.0-50.0); Mean Corpuscular Hemoglobin 22.5 pg (28.0-32.0); Mean Corpuscular Hgb Conc. 31.2 g/dL (32.0-36.0); Mean Corpuscular Volume 72.1 fL (80.0-100.0); Monocytes % (auto) 7.3 % (0.0-12.0); Neutrophils % (auto) 80.2 % (37.0-80.0); Nucleated Red Blood Cells % 0.2 %; Red Blood Cells 3.64 10^6/uL (4.0-5.20); Red Cell Distribution Width 23.4 % (11.8-14.3); White Blood Cell 13.3 10^3/uL (4.4-10.8)
[2023-11-20 04:05] LABS: Alanine Aminotransferase 23 U/L (7-40); Albumin 3.2 g/dL (3.2-4.8); Alkaline Phosphatase 107 U/L (46-116); Anion Gap 5 (5-15); Aspartate Aminotransferase 24 U/L (13-40); Blood Urea Nitrogen 18 mg/dL (9-23); Calcium 8.7 mg/dL (8.5-10.1); Carbon Dioxide 25 mmol/L (20-30); Chloride 105 mmol/L (98-107); Glucose 159 mg/dL (74-106); Potassium 4.9 mmol/L (3.5-5.1); Sodium 135 mmol/L (136-145)
[2023-11-20 04:06] LABS: Bilirubin, Total 0.4 mg/dL (0.2-1.0); Phosphorus 3.6 mg/dL (2.4-5.1); Total Protein 6.8 g/dL (5.7-8.2)
[2023-11-20 07:36] LABS: Base Excess -1.1 mmol/L (-2.0-2.0)
[2023-11-20] MEDS: TPN PER PHARMACY IV NR (20:21)
[2023-11-20] MEDS: FUROSEMIDE 20 MG/2 ML VIAL IV SCH (21:20)
[2023-11-21] VITALS (116 sets, daily range): BP systolic 88–199; BP diastolic 51–141; PULSE 95–121; RESP 19–35; TEMP 97–100.8; O2SAT 94–100
[2023-11-21 04:24] LABS: Basophils # (auto) 0.1 10 ^3/uL (0-0.2); Eosinophils # (auto) 0.2 10 ^3/uL (0-0.8); Eosinophils % (auto) 1.5 % (0.0-7.0); Hemoglobin 7.5 g/dL (12.2-16.2); Lymphocytes # (auto) 1.5 10 ^3/uL (0.4-5.4); Monocytes # (auto) 1.1 10 ^3/uL (0-1.3); Nucleated Red Blood Cells % 0.4 %; White Blood Cell 12.3 10^3/uL (4.4-10.8)
[2023-11-21 04:26] LABS: Basophils % (auto) 0.9 % (0.0-2.0); Lymphocytes % (auto) 11.9 % (10.0-50.0); Mean Corpuscular Hemoglobin 22.8 pg (28.0-32.0); Mean Corpuscular Hgb Conc. 31.3 g/dL (32.0-36.0); Mean Corpuscular Volume 72.9 fL (80.0-100.0); Monocytes % (auto) 8.9 % (0.0-12.0); Neutrophils # (auto) 9.4 10 ^3/uL (1.6-8.6); Neutrophils % (auto) 76.8 % (37.0-80.0); Red Blood Cells 3.29 10^6/uL (4.0-5.20); Red Cell Distribution Width 23.1 % (11.8-14.3)
[2023-11-21 04:42] LABS: Alanine Aminotransferase 23 U/L (7-40); Alkaline Phosphatase 106 U/L (46-116); Anion Gap 6 (5-15); Aspartate Aminotransferase 31 U/L (13-40); BUN/Creatinine Ratio 43.4 (10.0-20.0); Bilirubin, Total 0.5 mg/dL (0.2-1.0); Blood Urea Nitrogen 23 mg/dL (9-23); Calcium 8.7 mg/dL (8.5-10.1); Carbon Dioxide 26 mmol/L (20-30); Chloride 107 mmol/L (98-107); Glucose 146 mg/dL (74-106); Phosphorus 4.2 mg/dL (2.4-5.1); Potassium 4.3 mmol/L (3.5-5.1); Sodium 139 mmol/L (136-145); Total Protein 6.6 g/dL (5.7-8.2)
[2023-11-21 06:42] LABS: Base Excess -1.5 mmol/L (-2.0-2.0)
[2023-11-21 12:33] LABS: Eosinophils # (auto) 0.1 10 ^3/uL (0-0.8); Hemoglobin 7.6 g/dL (12.2-16.2); Monocytes # (auto) 1.1 10 ^3/uL (0-1.3); White Blood Cell 14.5 10^3/uL (4.4-10.8)
[2023-11-21 12:34] LABS: Basophils # (auto) 0.2 10 ^3/uL (0-0.2); Basophils % (auto) 1.4 % (0.0-2.0); Hematocrit 24.7 % (36.0-46.0); Lymphocytes # (auto) 0.9 10 ^3/uL (0.4-5.4); Lymphocytes % (auto) 6.5 % (10.0-50.0); Mean Corpuscular Hemoglobin 22.7 pg (28.0-32.0); Mean Corpuscular Hgb Conc. 30.9 g/dL (32.0-36.0); Mean Corpuscular Volume 73.3 fL (80.0-100.0); Monocytes % (auto) 7.3 % (0.0-12.0); Neutrophils # (auto) 12.2 10 ^3/uL (1.6-8.6); Neutrophils % (auto) 83.8 % (37.0-80.0); Nucleated Red Blood Cells % 0.3 %; Red Blood Cells 3.37 10^6/uL (4.0-5.20)
[2023-11-21 12:36] LABS: Red Cell Distribution Width 23.5 % (11.8-14.3)
[2023-11-21 13:26] LABS: INR 1.07 (0.9-1.15); Partial Thromboplastin Time 29.3 SEC (24.5-34.5); Prothrombin Time 11.3 sec (9.3-11.8)
[2023-11-21 18:08] LABS: Basophils # (auto) 0.1 10 ^3/uL (0-0.2); Eosinophils # (auto) 0.2 10 ^3/uL (0-0.8); Hemoglobin 7.2 g/dL (12.2-16.2); Nucleated Red Blood Cells % 0.5 %; White Blood Cell 13.6 10^3/uL (4.4-10.8)
[2023-11-21 18:10] LABS: Basophils % (auto) 0.6 % (0.0-2.0); Eosinophils % (auto) 1.4 % (0.0-7.0); Hematocrit 24.1 % (36.0-46.0); Lymphocytes # (auto) 1.6 10 ^3/uL (0.4-5.4); Lymphocytes % (auto) 11.4 % (10.0-50.0); Mean Corpuscular Hemoglobin 22.6 pg (28.0-32.0); Mean Corpuscular Hgb Conc. 29.8 g/dL (32.0-36.0); Monocytes # (auto) 1.1 10 ^3/uL (0-1.3); Neutrophils # (auto) 10.7 10 ^3/uL (1.6-8.6); Neutrophils % (auto) 78.6 % (37.0-80.0); Red Blood Cells 3.18 10^6/uL (4.0-5.20)
[2023-11-21] MEDS: TPN PER PHARMACY IV NR (21:41)
[2023-11-21 23:48] LABS: Hemoglobin 7.3 g/dL (12.2-16.2)
[2023-11-21 23:50] LABS: Hematocrit 23.4 % (36.0-46.0)
[2023-11-22] VITALS (105 sets, daily range): BP systolic 91–152; BP diastolic 43–104; PULSE 96–122; RESP 12–32; TEMP 97.5–103; O2SAT 78–100
[2023-11-22 01:13] LABS: Hemoglobin 7.2 g/dL (12.2-16.2)
[2023-11-22 01:15] LABS: Hematocrit 23.3 % (36.0-46.0)
[2023-11-22 03:39] LABS: Basophils # (auto) 0.2 10 ^3/uL (0-0.2); Basophils % (auto) 1.1 % (0.0-2.0); Eosinophils # (auto) 0.2 10 ^3/uL (0-0.8); Eosinophils % (auto) 1.1 % (0.0-7.0); Hematocrit 22.9 % (36.0-46.0); Hemoglobin 7.1 g/dL (12.2-16.2); Lymphocytes # (auto) 1.1 10 ^3/uL (0.4-5.4); Lymphocytes % (auto) 7.5 % (10.0-50.0); Mean Corpuscular Hemoglobin 23.6 pg (28.0-32.0); Mean Corpuscular Hgb Conc. 31.1 g/dL (32.0-36.0); Mean Corpuscular Volume 75.7 fL (80.0-100.0); Monocytes # (auto) 1.3 10 ^3/uL (0-1.3); Monocytes % (auto) 8.9 % (0.0-12.0); Neutrophils # (auto) 12.1 10 ^3/uL (1.6-8.6); Neutrophils % (auto) 81.4 % (37.0-80.0); Nucleated Red Blood Cells % 1.8 %; Red Blood Cells 3.02 10^6/uL (4.0-5.20); White Blood Cell 14.8 10^3/uL (4.4-10.8)
[2023-11-22 03:56] LABS: INR 1.06 (0.9-1.15); Partial Thromboplastin Time 26.9 SEC (24.5-34.5); Prothrombin Time 11.2 sec (9.3-11.8)
[2023-11-22 03:58] LABS: Alanine Aminotransferase 28 U/L (7-40); Albumin 2.9 g/dL (3.2-4.8); Alkaline Phosphatase 94 U/L (46-116); Anion Gap 5 (5-15); Aspartate Aminotransferase 21 U/L (13-40); BUN/Creatinine Ratio 47.8 (10.0-20.0); Blood Urea Nitrogen 32 mg/dL (9-23); Carbon Dioxide 25 mmol/L (20-30); Chloride 110 mmol/L (98-107); Glucose 188 mg/dL (74-106); Magnesium 1.9 mg/dL (1.6-2.6); Potassium 4.2 mmol/L (3.5-5.1); Sodium 140 mmol/L (136-145)
[2023-11-22 03:59] LABS: Phosphorus 4.2 mg/dL (2.4-5.1); Total Protein 6.2 g/dL (5.7-8.2)
[2023-11-22 08:36] LABS: Base Excess -0.4 mmol/L (-2.0-2.0)
[2023-11-22] MEDS: TPN PER PHARMACY IV NR (19:37)
[2023-11-23] VITALS (108 sets, daily range): BP systolic 95–177; BP diastolic 40–113; PULSE 82–115; RESP 18–34; TEMP 97.7–99.5; O2SAT 93–100
[2023-11-23 04:01] LABS: Basophils # (auto) 0.1 10 ^3/uL (0-0.2); Eosinophils # (auto) 0.2 10 ^3/uL (0-0.8); Neutrophils # (auto) 6.8 10 ^3/uL (1.6-8.6); Neutrophils % (auto) 71.8 % (37.0-80.0); White Blood Cell 9.5 10^3/uL (4.4-10.8)
[2023-11-23 04:04] LABS: Basophils % (auto) 0.8 % (0.0-2.0); Eosinophils % (auto) 2.4 % (0.0-7.0); Hematocrit 19.9 % (36.0-46.0); Lymphocytes # (auto) 1.4 10 ^3/uL (0.4-5.4); Mean Corpuscular Hemoglobin 25.3 pg (28.0-32.0); Mean Corpuscular Hgb Conc. 31.8 g/dL (32.0-36.0); Mean Corpuscular Volume 79.6 fL (80.0-100.0); Nucleated Red Blood Cells % 2.2 %; Red Blood Cells 2.49 10^6/uL (4.0-5.20)
[2023-11-23 04:22] LABS: Alanine Aminotransferase 23 U/L (7-40); Albumin 2.6 g/dL (3.2-4.8); Alkaline Phosphatase 70 U/L (46-116); Anion Gap 6 (5-15); Aspartate Aminotransferase 16 U/L (13-40); BUN/Creatinine Ratio 46.3 (10.0-20.0); Blood Urea Nitrogen 25 mg/dL (9-23); Calcium 8.6 mg/dL (8.7-10.4); Carbon Dioxide 26 mmol/L (20-30); Chloride 113 mmol/L (98-107); Glucose 160 mg/dL (74-106); Magnesium 1.9 mg/dL (1.6-2.6); Phosphorus 2.8 mg/dL (2.4-5.1); Potassium 3.6 mmol/L (3.5-5.1); Sodium 145 mmol/L (136-145)
[2023-11-23 04:23] LABS: Bilirubin, Total 0.6 mg/dL (0.2-1.0); Total Protein 5.5 g/dL (5.7-8.2)
[2023-11-23 04:24] LABS: Red Cell Distribution Width 23.6 % (11.8-14.3)
[2023-11-23 04:26] LABS: Hemoglobin 6.3 g/dL (12.2-16.2)
[2023-11-23 05:16] LABS: Anisocytosis Moderate; Platelet Estimate Adequate; Stomatocytes Moderate
[2023-11-23 15:08] LABS: Hematocrit 22.2 % (36.0-46.0); Hemoglobin 7.5 g/dL (12.2-16.2)
[2023-11-23] MEDS: NOREPINEPHRINE 8 MG/250ML KIT 250 ML IV SCH (16:30)
[2023-11-23] MEDS: FUROSEMIDE 100 MG/10ML VIAL IV ONE (16:56)
[2023-11-23] MEDS: TPN PER PHARMACY IV NR (20:37)
[2023-11-24] VITALS (114 sets, daily range): BP systolic 96–177; BP diastolic 41–97; PULSE 73–100; RESP 16–24; TEMP 97.7–100.2; O2SAT 97–100
[2023-11-24 04:00] LABS: Basophils # (auto) 0.1 10 ^3/uL (0-0.2); Eosinophils # (auto) 0.2 10 ^3/uL (0-0.8); Hemoglobin 7.4 g/dL (12.2-16.2); Lymphocytes # (auto) 1.1 10 ^3/uL (0.4-5.4); Monocytes # (auto) 0.6 10 ^3/uL (0-1.3); Neutrophils # (auto) 6.2 10 ^3/uL (1.6-8.6); White Blood Cell 8.2 10^3/uL (4.4-10.8)
[2023-11-24 04:06] LABS: Basophils % (auto) 0.9 % (0.0-2.0); Eosinophils % (auto) 2.4 % (0.0-7.0); Lymphocytes % (auto) 13.3 % (10.0-50.0); Mean Corpuscular Hemoglobin 28.2 pg (28.0-32.0); Mean Corpuscular Hgb Conc. 33.8 g/dL (32.0-36.0); Mean Corpuscular Volume 83.4 fL (80.0-100.0); Monocytes % (auto) 7.6 % (0.0-12.0); Neutrophils % (auto) 75.8 % (37.0-80.0); Nucleated Red Blood Cells % 1.8 %; Red Blood Cells 2.63 10^6/uL (4.0-5.20)
[2023-11-24 04:07] LABS: Red Cell Distribution Width 22.4 % (11.8-14.3)
[2023-11-24 05:53] LABS: Alanine Aminotransferase 20 U/L (7-40); Albumin 2.7 g/dL (3.2-4.8); Alkaline Phosphatase 77 U/L (46-116); Anion Gap 6 (5-15); Aspartate Aminotransferase 29 U/L (13-40); Bilirubin, Total 0.9 mg/dL (0.2-1.0); Blood Urea Nitrogen 21 mg/dL (9-23); Calcium 8.8 mg/dL (8.5-10.1); Carbon Dioxide 28 mmol/L (20-30); Chloride 111 mmol/L (98-107); Glucose 126 mg/dL (74-106); Phosphorus 3.9 mg/dL (2.4-5.1); Potassium 3.5 mmol/L (3.5-5.1); Sodium 145 mmol/L (136-145); Total Protein 5.8 g/dL (5.7-8.2)
[2023-11-24 06:02] LABS: Magnesium 1.8 mg/dL (1.6-2.6)
[2023-11-24] MEDS: POTASSIUM CHL 20MEQ/100ML 100 ML IV ONE (11:20)
[2023-11-24] MEDS: TPN PER PHARMACY IV NR (19:55)
[2023-11-25] VITALS (104 sets, daily range): BP systolic 112–199; BP diastolic 54–109; PULSE 78–101; RESP 18–33; TEMP 98.2–100; O2SAT 93–100
[2023-11-25 04:13] LABS: Albumin 2.5 g/dL (3.2-4.8)
[2023-11-25 04:14] LABS: Alanine Aminotransferase 25 U/L (7-40); Alkaline Phosphatase 84 U/L (46-116); Anion Gap 7 (5-15); Aspartate Aminotransferase 17 U/L (13-40); BUN/Creatinine Ratio 26.4 (10.0-20.0); Bilirubin, Total 0.6 mg/dL (0.2-1.0); Blood Urea Nitrogen 14 mg/dL (9-23); Calcium 7.8 mg/dL (8.5-10.1); Carbon Dioxide 24 mmol/L (20-30); Chloride 101 mmol/L (98-107); Glucose 279 mg/dL (74-106); Phosphorus 0.9 mg/dL (2.4-5.1); Potassium 3.4 mmol/L (3.5-5.1); Total Protein 5.4 g/dL (5.7-8.2)
[2023-11-25 04:16] LABS: Sodium 132 mmol/L (136-145)
[2023-11-25 07:03] LABS: Base Excess 1.9 mmol/L (-2.0-2.0)
[2023-11-25] MEDS: POTASSIUM PHOSP 22MEQ(15MMOLE) in NS 100 ML IV ONE (12:39)
[2023-11-25] MEDS: TPN PER PHARMACY IV NR (20:29)
[2023-11-26] VITALS (108 sets, daily range): BP systolic 114–202; BP diastolic 57–147; PULSE 80–104; RESP 18–29; TEMP 98.2–100.7; O2SAT 87–100
[2023-11-26 04:13] LABS: Basophils # (auto) 0 10 ^3/uL (0-0.2); Basophils % (auto) 0.7 % (0.0-2.0); Eosinophils # (auto) 0.2 10 ^3/uL (0-0.8); Eosinophils % (auto) 3.2 % (0.0-7.0); Nucleated Red Blood Cells % 0.5 %
[2023-11-26 04:16] LABS: Hematocrit 25.4 % (36.0-46.0); Hemoglobin 8.3 g/dL (12.2-16.2); Lymphocytes # (auto) 1.1 10 ^3/uL (0.4-5.4); Lymphocytes % (auto) 15.9 % (10.0-50.0); Mean Corpuscular Hgb Conc. 32.5 g/dL (32.0-36.0); Mean Corpuscular Volume 82.9 fL (80.0-100.0); Monocytes # (auto) 0.6 10 ^3/uL (0-1.3); Monocytes % (auto) 7.9 % (0.0-12.0); Neutrophils # (auto) 5.1 10 ^3/uL (1.6-8.6); Neutrophils % (auto) 72.3 % (37.0-80.0); Red Blood Cells 3.07 10^6/uL (4.0-5.20); Red Cell Distribution Width 24.8 % (11.8-14.3); White Blood Cell 7.1 10^3/uL (4.4-10.8)
[2023-11-26 04:33] LABS: Alanine Aminotransferase 34 U/L (7-40); Albumin 2.7 g/dL (3.2-4.8); Alkaline Phosphatase 105 U/L (46-116); Anion Gap 7 (5-15); Aspartate Aminotransferase 33 U/L (13-40); BUN/Creatinine Ratio 26.9 (10.0-20.0); Blood Urea Nitrogen 14 mg/dL (9-23); Calcium 8.8 mg/dL (8.5-10.1); Carbon Dioxide 26 mmol/L (20-30); Chloride 108 mmol/L (98-107); Glucose 132 mg/dL (74-106); Phosphorus 3.2 mg/dL (2.4-5.1); Potassium 3.8 mmol/L (3.5-5.1); Sodium 141 mmol/L (136-145); Triglycerides 229 mg/dL (< 150)
[2023-11-26 04:34] LABS: Bilirubin, Total 0.6 mg/dL (0.2-1.0); Total Protein 5.9 g/dL (5.7-8.2)
[2023-11-26 13:21] LABS: Magnesium 1.5 mg/dL (1.6-2.6)
[2023-11-26 13:26] LABS: Magnesium 1.7 mg/dL (1.6-2.6)
[2023-11-26] MEDS ORDERED: VANCOMYCIN PER PHARMACY 0 MG IV SCH (13:30)
[2023-11-26] MEDS ORDERED: VANCOMYCIN 1GM/200ML 200 ML IV ONE (14:00)
[2023-11-26] MEDS: FUROSEMIDE 20 MG/2 ML VIAL IV ONE (14:36)
[2023-11-26] MEDS: VANCOMYCIN 1GM/200ML 200 ML IV ONE (14:36)
[2023-11-26] MEDS: PROPOFOL 100 ML IV ONE (16:43)
[2023-11-26] MEDS: PROPOFOL 100 ML IV SCH (17:00)
[2023-11-26] MEDS: TPN PER PHARMACY IV NR (20:47)
[2023-11-26] MEDS: VANCOMYCIN 1GM/200ML 200 ML IV SCH (21:40)
[2023-11-27] VITALS (104 sets, daily range): BP systolic 96–223; BP diastolic 51–142; PULSE 73–106; RESP 16–32; TEMP 97–100.4; O2SAT 96–100
[2023-11-27 04:03] LABS: Basophils # (auto) 0 10 ^3/uL (0-0.2); Basophils % (auto) 0.4 % (0.0-2.0); Eosinophils # (auto) 0.2 10 ^3/uL (0-0.8); Eosinophils % (auto) 3.1 % (0.0-7.0); Hematocrit 26.9 % (36.0-46.0); Hemoglobin 8.8 g/dL (12.2-16.2); Lymphocytes # (auto) 1.2 10 ^3/uL (0.4-5.4); Lymphocytes % (auto) 15.4 % (10.0-50.0); Mean Corpuscular Hemoglobin 27.2 pg (28.0-32.0); Mean Corpuscular Hgb Conc. 32.8 g/dL (32.0-36.0); Monocytes # (auto) 0.6 10 ^3/uL (0-1.3); Monocytes % (auto) 7.9 % (0.0-12.0); Neutrophils # (auto) 5.5 10 ^3/uL (1.6-8.6); Neutrophils % (auto) 73.2 % (37.0-80.0); Nucleated Red Blood Cells % 0.3 %; Red Blood Cells 3.24 10^6/uL (4.0-5.20); White Blood Cell 7.5 10^3/uL (4.4-10.8)
[2023-11-27 04:13] LABS: Alanine Aminotransferase 34 U/L (7-40); Albumin 2.7 g/dL (3.2-4.8); Alkaline Phosphatase 106 U/L (46-116); Anion Gap 6 (5-15); Aspartate Aminotransferase 28 U/L (13-40); BUN/Creatinine Ratio 33.3 (10.0-20.0); Blood Urea Nitrogen 16 mg/dL (9-23); Calcium 8.6 mg/dL (8.5-10.1); Carbon Dioxide 26 mmol/L (20-30); Chloride 107 mmol/L (98-107); Glucose 144 mg/dL (74-106); Potassium 3.8 mmol/L (3.5-5.1); Sodium 139 mmol/L (136-145)
[2023-11-27 04:14] LABS: Bilirubin, Total 0.6 mg/dL (0.2-1.0); Phosphorus 3.5 mg/dL (2.4-5.1); Total Protein 5.9 g/dL (5.7-8.2)
[2023-11-27 04:58] LABS: Anisocytosis Moderate; Platelet Estimate Adequate
[2023-11-27 07:19] LABS: Base Excess -0.3 mmol/L (-2.0-2.0)
[2023-11-27 07:21] LABS: Magnesium 1.8 mg/dL (1.6-2.6)
[2023-11-27] MEDS: VANCOMYCIN 1GM/200ML 200 ML IV SCH (16:03)
[2023-11-27] MEDS: MEROPENEM 1GM IVPB 50 ML IV SCH (20:27)
[2023-11-27] MEDS: TPN PER PHARMACY IV NR (20:31)
[2023-11-28] VITALS (104 sets, daily range): BP systolic 99–205; BP diastolic 51–108; PULSE 68–117; RESP 17–31; TEMP 93.6–100.6; O2SAT 92–100
[2023-11-28] MEDS: ACETAMINOPHEN IV 1000 MG/100ML (10MG/ML) IV PRN
[2023-11-28] MEDS: LABETALOL HCL 5 MG/ML 4ML SYRINGE IV ONE ×2 (00:43→01:52)
[2023-11-28] MEDS: LABETALOL HCL 5 MG/ML 4ML SYRINGE IV PRN (01:45)
[2023-11-28 04:15] LABS: Eosinophils # (auto) 0.3 10 ^3/uL (0-0.8); Lymphocytes % (auto) 8.9 % (10.0-50.0); Monocytes # (auto) 0.6 10 ^3/uL (0-1.3)
[2023-11-28 04:18] LABS: Chloride 107 mmol/L (98-107); Potassium 3.7 mmol/L (3.5-5.1); Sodium 138 mmol/L (136-145)
[2023-11-28 04:19] LABS: Anion Gap 7 (5-15); Basophils # (auto) 0 10 ^3/uL (0-0.2); Basophils % (auto) 0.4 % (0.0-2.0); Carbon Dioxide 24 mmol/L (20-30); Eosinophils % (auto) 2.8 % (0.0-7.0); Hematocrit 29.7 % (36.0-46.0); Hemoglobin 9.4 g/dL (12.2-16.2); Mean Corpuscular Hemoglobin 26.4 pg (28.0-32.0); Mean Corpuscular Hgb Conc. 31.8 g/dL (32.0-36.0); Monocytes % (auto) 5.4 % (0.0-12.0); Neutrophils # (auto) 9.1 10 ^3/uL (1.6-8.6); Neutrophils % (auto) 82.5 % (37.0-80.0); Nucleated Red Blood Cells % 0.1 %; Red Blood Cells 3.57 10^6/uL (4.0-5.20)
[2023-11-28 04:20] LABS: Calcium 8.7 mg/dL (8.5-10.1)
[2023-11-28 04:25] LABS: BUN/Creatinine Ratio 33.3 (10.0-20.0); Blood Urea Nitrogen 17 mg/dL (9-23); Glucose 170 mg/dL (74-106)
[2023-11-28 04:29] LABS: Red Cell Distribution Width 27.7 % (11.8-14.3)
[2023-11-28 06:05] LABS: Base Excess -4.7 mmol/L (-2.0-2.0)
[2023-11-28 09:48] LABS: Albumin 2.7 g/dL (3.2-4.8); Bilirubin, Direct 0.6 mg/dL (<0.3); Bilirubin, Total 0.8 mg/dL (0.2-1.0); Magnesium 1.8 mg/dL (1.6-2.6); Phosphorus 3.9 mg/dL (2.4-5.1)
[2023-11-28 15:26] LABS: INR 0.95 (0.9-1.15); Prothrombin Time 10.1 sec (9.3-11.8)
[2023-11-28] MEDS: fentaNYL Drip 2500mCg/250mlNS 250 ML IV SCH (17:35)
[2023-11-28] MEDS: TPN PER PHARMACY IV NR (19:57)
[2023-11-29] VITALS (100 sets, daily range): BP systolic 108–226; BP diastolic 51–113; PULSE 69–97; RESP 10–31; TEMP 95.4–99; O2SAT 93–100
[2023-11-29 03:58] LABS: Basophils # (auto) 0 10 ^3/uL (0-0.2); Eosinophils # (auto) 0.3 10 ^3/uL (0-0.8); Hemoglobin 9.2 g/dL (12.2-16.2); Mean Corpuscular Volume 83.4 fL (80.0-100.0); Monocytes # (auto) 0.6 10 ^3/uL (0-1.3); White Blood Cell 7.9 10^3/uL (4.4-10.8)
[2023-11-29 04:03] LABS: Basophils % (auto) 0.4 % (0.0-2.0); Eosinophils % (auto) 3.9 % (0.0-7.0); Hematocrit 28.5 % (36.0-46.0); Mean Corpuscular Hemoglobin 27.1 pg (28.0-32.0); Mean Corpuscular Hgb Conc. 32.5 g/dL (32.0-36.0); Monocytes % (auto) 7.1 % (0.0-12.0); Neutrophils # (auto) 6.1 10 ^3/uL (1.6-8.6); Neutrophils % (auto) 76.6 % (37.0-80.0); Nucleated Red Blood Cells % 0.4 %; Red Blood Cells 3.41 10^6/uL (4.0-5.20)
[2023-11-29 04:06] LABS: Red Cell Distribution Width 26.7 % (11.8-14.3)
[2023-11-29 04:08] LABS: Alanine Aminotransferase 35 U/L (7-40); Albumin 2.6 g/dL (3.2-4.8); Alkaline Phosphatase 103 U/L (46-116); Anion Gap 6 (5-15); Aspartate Aminotransferase 34 U/L (13-40); BUN/Creatinine Ratio 40.9 (10.0-20.0); Bilirubin, Total 0.7 mg/dL (0.2-1.0); Blood Urea Nitrogen 18 mg/dL (9-23); Calcium 8.6 mg/dL (8.5-10.1); Carbon Dioxide 25 mmol/L (20-30); Chloride 108 mmol/L (98-107); Glucose 143 mg/dL (74-106); Magnesium 1.8 mg/dL (1.6-2.6); Phosphorus 3.1 mg/dL (2.4-5.1); Potassium 3.8 mmol/L (3.5-5.1); Sodium 139 mmol/L (136-145)
[2023-11-29 04:12] LABS: INR 0.99 (0.9-1.15); Partial Thromboplastin Time 27.6 SEC (24.5-34.5); Prothrombin Time 10.5 sec (9.3-11.8)
[2023-11-29 07:30] LABS: Base Excess -1.3 mmol/L (-2.0-2.0)
[2023-11-29] MEDS: BUPIVACAINE 0.25% INJ 50ML VIAL ONE (11:30)
[2023-11-29] MEDS ORDERED: fentaNYL CITRATE 100 MCG/2 ML VL ONE (11:30)
[2023-11-29] MEDS: LIDOCAINE W/ EPINEPHRINE 1% 20ML VIAL ONE (11:30)
[2023-11-29] MEDS ORDERED: MIDAZOLAM HCL 2MG/2ML 2ml VIAL (1mg/ml) ONE (11:30)
[2023-11-29] MEDS ORDERED: ROCURONIUM 10MG/ML 10ML VIAL IV ONE (11:31)
[2023-11-29] MEDS ORDERED: PROPOFOL 10 MG/ML 20 ML IV ONE (11:35)
[2023-11-29] MEDS ORDERED: DOPamine 1600MCG/ML D5W 250 ML IV SCH (11:45)
[2023-11-29] MEDS ORDERED: HYDROmorphone HCL 2 MG/ML VL/or syr ONE (12:14)
[2023-11-29] MEDS: TPN PER PHARMACY IV NR (20:26)
[2023-11-29] MEDS: ALBUTEROL SULF 2.5 MG/0.5ML(0.5%) NEB SOLN ONE (20:27)
[2023-11-29] MEDS: IPRATROPIUM BROM 0.5 MG/2.5ML INH SOL ONE (20:27)
[2023-11-30] VITALS (106 sets, daily range): BP systolic 94–194; BP diastolic 49–102; PULSE 71–93; RESP 16–24; TEMP 98–100.4; O2SAT 91–100
[2023-11-30 04:28] LABS: Hematocrit 27.9 % (36.0-46.0); Mean Corpuscular Hemoglobin 27.4 pg (28.0-32.0); Mean Corpuscular Hgb Conc. 32.4 g/dL (32.0-36.0); Mean Corpuscular Volume 84.7 fL (80.0-100.0); Red Blood Cells 3.29 10^6/uL (4.0-5.20); White Blood Cell 8.6 10^3/uL (4.4-10.8)
[2023-11-30 04:32] LABS: Potassium 4.4 mmol/L (3.5-5.1)
[2023-11-30 04:33] LABS: Calcium 8.5 mg/dL (8.5-10.1); Red Cell Distribution Width 28.3 % (11.8-14.3)
[2023-11-30 04:34] LABS: Band Neutrophils % (manual) 0; Basophils % (manual) 0 (0.0-2.0); Blast Cells 0; Metamyelocytes % 0; Promyelocytes % 0; Reactive Lymphocytes 0
[2023-11-30 04:38] LABS: BUN/Creatinine Ratio 31.8 (10.0-20.0); Magnesium 1.8 mg/dL (1.6-2.6)
[2023-11-30 04:39] LABS: Albumin 2.8 g/dL (3.2-4.8)
[2023-11-30 04:40] LABS: Phosphorus 3.3 mg/dL (2.4-5.1)
[2023-11-30 05:10] LABS: Eosinophils % (manual) 3 (0-7); Lymphocytes % (manual) 18 (10.0-50.0); Monocytes % (manual) 8 (0-12); Myelocytes % 3; Platelet Estimate Adequate
[2023-11-30 08:52] LABS: Base Excess 0.4 mmol/L (-2.0-2.0)
[2023-11-30] MEDS: ACETYLCYSTEINE 20%(200MG/ML) SOL 4ML NEB SCH (12:37)
[2023-11-30] MEDS: IPRATROPIUM BROM 0.5 MG/2.5ML INH SOL NEB SCH (12:37)
[2023-11-30] MEDS: ALBUTEROL SULF 2.5 MG/0.5ML(0.5%) NEB SOLN NEB SCH (12:37)
[2023-11-30] MEDS ORDERED: Nepro With Carb Steady 1 Liter Bottle GT SCH (14:30)
[2023-11-30] MEDS: TPN PER PHARMACY IV NR (19:49)
[2023-12-01] VITALS (112 sets, daily range): BP systolic 111–197; BP diastolic 56–113; PULSE 73–103; RESP 16–28; TEMP 98.1–99.9; O2SAT 92–100
[2023-12-01 07:14] LABS: Basophils # (auto) 0.1 10 ^3/uL (0-0.2); Basophils % (auto) 0.7 % (0.0-2.0); Eosinophils # (auto) 0.4 10 ^3/uL (0-0.8); Eosinophils % (auto) 4.8 % (0.0-7.0); Hemoglobin 8.6 g/dL (12.2-16.2); Monocytes # (auto) 0.7 10 ^3/uL (0-1.3)
[2023-12-01 07:16] LABS: Lymphocytes # (auto) 1.7 10 ^3/uL (0.4-5.4); Lymphocytes % (auto) 18.7 % (10.0-50.0); Mean Corpuscular Hgb Conc. 31.7 g/dL (32.0-36.0); Mean Corpuscular Volume 85.4 fL (80.0-100.0); Neutrophils % (auto) 67.8 % (37.0-80.0); Nucleated Red Blood Cells % 0.8 %; Red Blood Cells 3.16 10^6/uL (4.0-5.20); White Blood Cell 8.9 10^3/uL (4.4-10.8)
[2023-12-01 07:25] LABS: Red Cell Distribution Width 29.2 % (11.8-14.3)
[2023-12-01 07:29] LABS: Alanine Aminotransferase 70 U/L (7-40); Albumin 2.5 g/dL (3.2-4.8); Alkaline Phosphatase 135 U/L (46-116); Anion Gap 6 (5-15); Aspartate Aminotransferase 71 U/L (13-40); Blood Urea Nitrogen 16 mg/dL (9-23); Calcium 8.3 mg/dL (8.7-10.4); Carbon Dioxide 23 mmol/L (20-30); Chloride 110 mmol/L (98-107); Glucose 126 mg/dL (74-106); Magnesium 1.8 mg/dL (1.6-2.6); Potassium 4.4 mmol/L (3.5-5.1); Sodium 139 mmol/L (136-145)
[2023-12-01 07:30] LABS: Bilirubin, Total 0.7 mg/dL (0.2-1.0); Phosphorus 3.9 mg/dL (2.4-5.1); Total Protein 5.9 g/dL (5.7-8.2)
[2023-12-01 08:42] LABS: Base Excess -1.2 mmol/L (-2.0-2.0)
[2023-12-01] MEDS: FUROSEMIDE 40 MG/4 ML VIAL IV ONE (09:05)
[2023-12-01] MEDS: PROPOFOL 200 ML IV ONE (14:15)
[2023-12-01] MEDS: TPN PER PHARMACY IV NR (19:36)
[2023-12-02] VITALS (108 sets, daily range): BP systolic 120–175; BP diastolic 56–106; PULSE 79–107; RESP 18–26; TEMP 98.7–100; O2SAT 99–100
[2023-12-02 04:03] LABS: Basophils # (auto) 0 10 ^3/uL (0-0.2); Basophils % (auto) 0.3 % (0.0-2.0); Eosinophils % (auto) 4.2 % (0.0-7.0)
[2023-12-02 04:06] LABS: Eosinophils # (auto) 0.4 10 ^3/uL (0-0.8); Hematocrit 28.5 % (36.0-46.0); Hemoglobin 9.1 g/dL (12.2-16.2); Lymphocytes % (auto) 19.5 % (10.0-50.0); Mean Corpuscular Hgb Conc. 31.8 g/dL (32.0-36.0); Mean Corpuscular Volume 85.1 fL (80.0-100.0); Monocytes # (auto) 0.7 10 ^3/uL (0-1.3); Monocytes % (auto) 6.5 % (0.0-12.0); Neutrophils # (auto) 7.2 10 ^3/uL (1.6-8.6); Neutrophils % (auto) 69.5 % (37.0-80.0); Nucleated Red Blood Cells % 0.6 %; Red Blood Cells 3.35 10^6/uL (4.0-5.20); White Blood Cell 10.3 10^3/uL (4.4-10.8)
[2023-12-02 04:23] LABS: Alanine Aminotransferase 82 U/L (7-40); Albumin 2.7 g/dL (3.2-4.8); Alkaline Phosphatase 162 U/L (46-116); Anion Gap 7 (5-15); Aspartate Aminotransferase 70 U/L (13-40); Calcium 8.4 mg/dL (8.7-10.4); Carbon Dioxide 23 mmol/L (20-30); Chloride 108 mmol/L (98-107); Glucose 137 mg/dL (74-106); Magnesium 1.8 mg/dL (1.6-2.6); Potassium 4.1 mmol/L (3.5-5.1); Sodium 138 mmol/L (136-145)
[2023-12-02 04:24] LABS: Bilirubin, Total 0.7 mg/dL (0.2-1.0); Phosphorus 3.3 mg/dL (2.4-5.1); Total Protein 6.3 g/dL (5.7-8.2)
[2023-12-02 04:25] LABS: BUN/Creatinine Ratio 37.5 (10.0-20.0); Blood Urea Nitrogen 15 mg/dL (9-23)
[2023-12-02 07:25] LABS: Base Excess -0.9 mmol/L (-2.0-2.0)
[2023-12-02] MEDS: ENOXAPARIN SOD 40 MG/0.4 ML SYRINGE SC SCH (09:19)
[2023-12-02] MEDS: METOPROLOL TARTRATE 50 MG TAB PO SCH (09:19)
[2023-12-02] MEDS ORDERED: TPN PER PHARMACY IV NR (20:00)
[2023-12-03] VITALS (107 sets, daily range): BP systolic 120–204; BP diastolic 59–112; PULSE 82–102; RESP 17–27; TEMP 98.2–100; O2SAT 100
[2023-12-03 03:44] LABS: Chloride 108 mmol/L (98-107); Potassium 4.5 mmol/L (3.5-5.1); Sodium 137 mmol/L (136-145)
[2023-12-03 03:45] LABS: Anion Gap 6 (5-15); Calcium 8.7 mg/dL (8.7-10.4); Carbon Dioxide 23 mmol/L (20-30)
[2023-12-03 03:50] LABS: BUN/Creatinine Ratio 33.3 (10.0-20.0); Blood Urea Nitrogen 13 mg/dL (9-23); Glucose 116 mg/dL (74-106)
[2023-12-03 03:51] LABS: Magnesium 1.7 mg/dL (1.6-2.6)
[2023-12-03 03:52] LABS: Phosphorus 3.5 mg/dL (2.4-5.1)
[2023-12-03 04:10] LABS: Eosinophils # (auto) 0.4 10 ^3/uL (0-0.8); Hemoglobin 9.6 g/dL (12.2-16.2); Lymphocytes # (auto) 1.9 10 ^3/uL (0.4-5.4); Monocytes # (auto) 0.9 10 ^3/uL (0-1.3)
[2023-12-03 04:14] LABS: Basophils # (auto) 0.1 10 ^3/uL (0-0.2); Basophils % (auto) 0.7 % (0.0-2.0); Eosinophils % (auto) 4.3 % (0.0-7.0); Hematocrit 31.2 % (36.0-46.0); Mean Corpuscular Hemoglobin 26.7 pg (28.0-32.0); Mean Corpuscular Hgb Conc. 30.6 g/dL (32.0-36.0); Mean Corpuscular Volume 87.2 fL (80.0-100.0); Neutrophils # (auto) 6.4 10 ^3/uL (1.6-8.6); Nucleated Red Blood Cells % 0.2 %; Red Blood Cells 3.58 10^6/uL (4.0-5.20); Red Cell Distribution Width 29.4 % (11.8-14.3); White Blood Cell 9.6 10^3/uL (4.4-10.8)
[2023-12-03 04:41] LABS: Anisocytosis Marked; Platelet Estimate Adequate
[2023-12-03] MEDS: LABETALOL HCL 200 MG TAB PO SCH (10:11)
[2023-12-03 10:14] LABS: Base Excess -1.8 mmol/L (-2.0-2.0)
[2023-12-03] MEDS: Nepro With Carb Steady 1 Liter Bottle GT SCH (10:35)
[2023-12-03] MEDS: LABETALOL HCL 200 MG TAB NG ONE (17:16)
[2023-12-04] VITALS (104 sets, daily range): BP systolic 115–190; BP diastolic 61–113; PULSE 81–105; RESP 15–26; TEMP 98.3–99.9; O2SAT 97–100
[2023-12-04 04:13] LABS: Basophils # (auto) 0.1 10 ^3/uL (0-0.2); Basophils % (auto) 0.6 % (0.0-2.0); Eosinophils # (auto) 0.4 10 ^3/uL (0-0.8); Eosinophils % (auto) 4.8 % (0.0-7.0); Hematocrit 30.2 % (36.0-46.0); Hemoglobin 9.6 g/dL (12.2-16.2); Lymphocytes # (auto) 1.7 10 ^3/uL (0.4-5.4); Mean Corpuscular Hemoglobin 27.8 pg (28.0-32.0); Mean Corpuscular Hgb Conc. 31.7 g/dL (32.0-36.0); Mean Corpuscular Volume 87.8 fL (80.0-100.0); Monocytes # (auto) 0.9 10 ^3/uL (0-1.3); Neutrophils # (auto) 5.7 10 ^3/uL (1.6-8.6); Neutrophils % (auto) 65.6 % (37.0-80.0); Nucleated Red Blood Cells % 0.1 %; Red Blood Cells 3.44 10^6/uL (4.0-5.20); White Blood Cell 8.7 10^3/uL (4.4-10.8)
[2023-12-04 04:17] LABS: Calcium 8.8 mg/dL (8.7-10.4); Chloride 108 mmol/L (98-107); Potassium 3.9 mmol/L (3.5-5.1); Sodium 137 mmol/L (136-145)
[2023-12-04 04:18] LABS: Anion Gap 6 (5-15); Carbon Dioxide 23 mmol/L (20-30)
[2023-12-04 04:22] LABS: Red Cell Distribution Width 28.5 % (11.8-14.3)
[2023-12-04 04:23] LABS: Blood Urea Nitrogen 10 mg/dL (9-23); Glucose 103 mg/dL (74-106)
[2023-12-04 06:32] LABS: Platelet Estimate Adequate
[2023-12-04 06:33] LABS: Anisocytosis Moderate; Large Platelets FEW
[2023-12-04 06:58] LABS: Base Excess 0.1 mmol/L (-2.0-2.0)
[2023-12-04] MEDS: amLODIPine BESYLATE 5 MG TAB PO ONE (16:32)
[2023-12-04] MEDS: LABETALOL HCL 200 MG TAB PO SCH (21:32)
[2023-12-05] VITALS (108 sets, daily range): BP systolic 127–190; BP diastolic 51–131; PULSE 75–107; RESP 11–32; TEMP 98.7–99.8; O2SAT 78–100
[2023-12-05 04:22] LABS: Chloride 108 mmol/L (98-107); Potassium 3.7 mmol/L (3.5-5.1); Sodium 137 mmol/L (136-145)
[2023-12-05 04:23] LABS: Anion Gap 6 (5-15); Calcium 8.8 mg/dL (8.7-10.4); Carbon Dioxide 23 mmol/L (20-30)
[2023-12-05 04:28] LABS: BUN/Creatinine Ratio 26.3 (10.0-20.0); Blood Urea Nitrogen 10 mg/dL (9-23); Glucose 116 mg/dL (74-106)
[2023-12-05 04:40] LABS: Basophils # (auto) 0 10 ^3/uL (0-0.2); Basophils % (auto) 0.5 % (0.0-2.0); Eosinophils # (auto) 0.4 10 ^3/uL (0-0.8); Eosinophils % (auto) 4.9 % (0.0-7.0); Hematocrit 31.2 % (36.0-46.0); Hemoglobin 9.5 g/dL (12.2-16.2); Lymphocytes # (auto) 1.6 10 ^3/uL (0.4-5.4); Lymphocytes % (auto) 18.1 % (10.0-50.0); Mean Corpuscular Hemoglobin 26.9 pg (28.0-32.0); Mean Corpuscular Hgb Conc. 30.5 g/dL (32.0-36.0); Mean Corpuscular Volume 88.2 fL (80.0-100.0); Monocytes # (auto) 0.8 10 ^3/uL (0-1.3); Monocytes % (auto) 9.3 % (0.0-12.0); Neutrophils % (auto) 67.2 % (37.0-80.0); Nucleated Red Blood Cells % 0.4 %; Red Blood Cells 3.54 10^6/uL (4.0-5.20); White Blood Cell 8.9 10^3/uL (4.4-10.8)
[2023-12-05 04:41] LABS: Red Cell Distribution Width 28.5 % (11.8-14.3)
[2023-12-05 05:32] LABS: Anisocytosis Moderate; Large Platelets FEW; Platelet Estimate Adequate
[2023-12-05 08:13] LABS: Base Excess -1.1 mmol/L (-2.0-2.0)
[2023-12-05] MEDS: amLODIPine BESYLATE 5 MG TAB PO SCH (08:56)
[2023-12-05] MEDS: ENALAPRILAT 1.25 MG/ML-1ML VIAL IV PRN (11:57)
[2023-12-05] MEDS ORDERED: MORPHINE SULFATE 4 MG/ML SYR/VIAL IV PRN (15:15)
[2023-12-05] MEDS: cloNIDine HCL 0.1 MG TAB PO ONE (15:56)
[2023-12-05] MEDS: metroNIDAZOLE 500 MG TAB PO SCH (21:09)
[2023-12-05] MEDS: cloNIDine HCL 0.1 MG TAB PO SCH (21:16)
[2023-12-06] VITALS (66 sets, daily range): BP systolic 118–175; BP diastolic 60–94; PULSE 75–107; RESP 16–30; TEMP 98.5–99.6; O2SAT 94–100
[2023-12-06] MEDS: FLORASTOR (S. BOULARDII) 250 MG CAP PO SCH (09:56)
[2023-12-06 10:02] LABS: Basophils # (auto) 0 10 ^3/uL (0-0.2); Basophils % (auto) 0.4 % (0.0-2.0); Eosinophils # (auto) 0.1 10 ^3/uL (0-0.8); Eosinophils % (auto) 1.2 % (0.0-7.0); Hematocrit 28.2 % (36.0-46.0); Lymphocytes # (auto) 1.7 10 ^3/uL (0.4-5.4); Lymphocytes % (auto) 15.4 % (10.0-50.0); Mean Corpuscular Hemoglobin 27.5 pg (28.0-32.0); Mean Corpuscular Hgb Conc. 31.8 g/dL (32.0-36.0); Mean Corpuscular Volume 86.5 fL (80.0-100.0); Monocytes # (auto) 0.8 10 ^3/uL (0-1.3); Monocytes % (auto) 7.6 % (0.0-12.0); Neutrophils # (auto) 8.3 10 ^3/uL (1.6-8.6); Neutrophils % (auto) 75.4 % (37.0-80.0); Red Blood Cells 3.26 10^6/uL (4.0-5.20)
[2023-12-06 10:25] LABS: Anion Gap 7 (5-15); Carbon Dioxide 24 mmol/L (20-30); Chloride 110 mmol/L (98-107); Potassium 2.9 mmol/L (3.5-5.1); Sodium 141 mmol/L (136-145)
[2023-12-06 10:26] LABS: Calcium 8.7 mg/dL (8.5-10.1)
[2023-12-06 10:31] LABS: BUN/Creatinine Ratio 27.5 (10.0-20.0); Blood Urea Nitrogen 11 mg/dL (9-23); Glucose 138 mg/dL (74-106)
[2023-12-06] MEDS: POTASSIUM EFFERVESENT TAB 25 MEQ GT ONE (12:28)
[2023-12-06] MEDS: POTASSIUM CHL 20MEQ/100ML 100 ML IV SCH (12:28)
[2023-12-07] VITALS (62 sets, daily range): BP systolic 130–184; BP diastolic 58–100; PULSE 71–91; RESP 11–29; TEMP 98.7–99.4; O2SAT 89–100
[2023-12-07 04:04] LABS: Chloride 112 mmol/L (98-107); Potassium 3.4 mmol/L (3.5-5.1); Sodium 141 mmol/L (136-145)
[2023-12-07 04:05] LABS: Anion Gap 6 (5-15); Carbon Dioxide 23 mmol/L (20-30)
[2023-12-07 04:06] LABS: Calcium 8.5 mg/dL (8.7-10.4)
[2023-12-07 04:08] LABS: Basophils # (auto) 0.1 10 ^3/uL (0-0.2); Eosinophils # (auto) 0.3 10 ^3/uL (0-0.8); Eosinophils % (auto) 2.9 % (0.0-7.0); Hematocrit 29.2 % (36.0-46.0); Hemoglobin 9.1 g/dL (12.2-16.2); Lymphocytes # (auto) 1.5 10 ^3/uL (0.4-5.4); Lymphocytes % (auto) 16.9 % (10.0-50.0); Mean Corpuscular Hemoglobin 27.2 pg (28.0-32.0); Mean Corpuscular Volume 87.6 fL (80.0-100.0); Monocytes # (auto) 0.7 10 ^3/uL (0-1.3); Monocytes % (auto) 8.3 % (0.0-12.0); Neutrophils # (auto) 6.2 10 ^3/uL (1.6-8.6); Neutrophils % (auto) 70.9 % (37.0-80.0); Nucleated Red Blood Cells % 0.1 %; Red Blood Cells 3.34 10^6/uL (4.0-5.20); White Blood Cell 8.8 10^3/uL (4.4-10.8)
[2023-12-07 04:10] LABS: Glucose 139 mg/dL (74-106)
[2023-12-07 04:11] LABS: BUN/Creatinine Ratio 29.3 (10.0-20.0); Blood Urea Nitrogen 12 mg/dL (9-23); Magnesium 1.4 mg/dL (1.6-2.6)
[2023-12-07 04:16] LABS: Red Cell Distribution Width 27.7 % (11.8-14.3)
[2023-12-07 04:43] LABS: Anisocytosis Moderate; Platelet Estimate Adequate
[2023-12-07 04:44] LABS: Large Platelets FEW
[2023-12-07] MEDS: levoFLOXacin 750MG 150 ML IV SCH (09:37)
[2023-12-07] MEDS: MAGNESIUM SULFATE 1GM/100ML 100 ML IV SCH (09:38)
[2023-12-07] MEDS: POTASSIUM CHL 20MEQ/100ML 100 ML IV ONE (12:08)
[2023-12-07 12:47] LABS: Base Excess -0.7 mmol/L (-2.0-2.0)
[2023-12-07 21:05] LABS: INR 1.09 (0.9-1.15); Partial Thromboplastin Time 29.4 SEC (24.5-34.5); Prothrombin Time 11.5 sec (9.3-11.8)
[2023-12-08] VITALS (68 sets, daily range): BP systolic 145–183; BP diastolic 67–105; PULSE 68–112; RESP 15–33; TEMP 98–99.6; O2SAT 73–100
[2023-12-08 04:31] LABS: Chloride 112 mmol/L (98-107); Potassium 3.1 mmol/L (3.5-5.1); Sodium 141 mmol/L (136-145)
[2023-12-08 04:32] LABS: Anion Gap 6 (5-15); Carbon Dioxide 23 mmol/L (20-30)
[2023-12-08 04:33] LABS: Calcium 8.6 mg/dL (8.7-10.4)
[2023-12-08 04:37] LABS: Glucose 135 mg/dL (74-106)
[2023-12-08 04:38] LABS: Magnesium 1.5 mg/dL (1.6-2.6)
[2023-12-08 04:55] LABS: BUN/Creatinine Ratio 31.6 (10.0-20.0); Blood Urea Nitrogen 12 mg/dL (9-23)
[2023-12-08] MEDS: POTASSIUM CHL 20MEQ/100ML 100 ML IV SCH (14:49)
[2023-12-09] VITALS (82 sets, daily range): BP systolic 126–179; BP diastolic 52–104; PULSE 74–106; RESP 14–29; TEMP 98.5–100.1; O2SAT 88–100
[2023-12-09 05:07] LABS: Chloride 111 mmol/L (98-107); Potassium 3.1 mmol/L (3.5-5.1); Sodium 141 mmol/L (136-145)
[2023-12-09 05:08] LABS: Anion Gap 7 (5-15); Calcium 8.7 mg/dL (8.7-10.4); Carbon Dioxide 23 mmol/L (20-30)
[2023-12-09 05:13] LABS: BUN/Creatinine Ratio 28.2 (10.0-20.0); Blood Urea Nitrogen 11 mg/dL (9-23); Glucose 129 mg/dL (74-106); Magnesium 1.4 mg/dL (1.6-2.6)
[2023-12-09] MEDS: MAGNESIUM SULFATE 1GM/100ML 100 ML IV ONE ×2 (08:02→10:18)
[2023-12-09] MEDS: POTASSIUM CHL 20MEQ/100ML 100 ML IV ONE (08:07)
[2023-12-09] MEDS: POTASSIUM CHL 20MEQ/100ML 100 ML IV SCH (10:19)
[2023-12-09] MEDS ORDERED: NIFEdipine 10 MG CAP PO SCH (14:00)
[2023-12-10] VITALS (72 sets, daily range): BP systolic 118–179; BP diastolic 65–101; PULSE 74–101; RESP 17–28; TEMP 98.7–100; O2SAT 81–100
[2023-12-10] MEDS: LABETALOL HCL 5 MG/ML 4ML SYRINGE IV PRN (00:13)
[2023-12-10 04:36] LABS: Alanine Aminotransferase 73 U/L (7-40); Albumin 2.6 g/dL (3.2-4.8); Alkaline Phosphatase 136 U/L (46-116); Anion Gap 8 (5-15); Aspartate Aminotransferase 38 U/L (13-40); BUN/Creatinine Ratio 26.3 (10.0-20.0); Bilirubin, Total 0.8 mg/dL (0.2-1.0); Blood Urea Nitrogen 10 mg/dL (9-23); Calcium 8.8 mg/dL (8.7-10.4); Carbon Dioxide 22 mmol/L (20-30); Chloride 109 mmol/L (98-107); Glucose 129 mg/dL (74-106); Magnesium 1.6 mg/dL (1.6-2.6); Potassium 3.4 mmol/L (3.5-5.1); Sodium 139 mmol/L (136-145); Total Protein 6.3 g/dL (5.7-8.2)
[2023-12-10] MEDS: LORazepam 2MG/ML-1ML VIAL IV PRN (07:44)
[2023-12-10] MEDS: POTASSIUM EFFERVESENT TAB 25 MEQ GT ONE (12:42)
[2023-12-10] MEDS: cloNIDine HCL 0.1 MG TAB PO SCH (22:07)
[2023-12-11] VITALS (56 sets, daily range): BP systolic 114–154; BP diastolic 55–86; PULSE 77–99; RESP 13–30; TEMP 98.7–100.6; O2SAT 91–100
[2023-12-11 04:03] LABS: Basophils # (auto) 0 10 ^3/uL (0-0.2); Basophils % (auto) 0.4 % (0.0-2.0); Eosinophils # (auto) 0.3 10 ^3/uL (0-0.8); Eosinophils % (auto) 2.7 % (0.0-7.0); Hematocrit 29.5 % (36.0-46.0); Hemoglobin 9.3 g/dL (12.2-16.2); Lymphocytes # (auto) 2.3 10 ^3/uL (0.4-5.4); Lymphocytes % (auto) 23.3 % (10.0-50.0); Mean Corpuscular Hemoglobin 28.2 pg (28.0-32.0); Mean Corpuscular Hgb Conc. 31.6 g/dL (32.0-36.0); Mean Corpuscular Volume 89.2 fL (80.0-100.0); Monocytes # (auto) 0.7 10 ^3/uL (0-1.3); Monocytes % (auto) 7.3 % (0.0-12.0); Neutrophils # (auto) 6.7 10 ^3/uL (1.6-8.6); Neutrophils % (auto) 66.3 % (37.0-80.0); Nucleated Red Blood Cells % 0.1 %; Red Blood Cells 3.31 10^6/uL (4.0-5.20); White Blood Cell 10.1 10^3/uL (4.4-10.8)
[2023-12-11 04:07] LABS: Red Cell Distribution Width 27.4 % (11.8-14.3)
[2023-12-11 04:22] LABS: Calcium 8.6 mg/dL (8.7-10.4); Chloride 109 mmol/L (98-107); Potassium 3.2 mmol/L (3.5-5.1); Sodium 138 mmol/L (136-145)
[2023-12-11 04:24] LABS: Anion Gap 5 (5-15); Carbon Dioxide 24 mmol/L (20-30)
[2023-12-11 04:29] LABS: BUN/Creatinine Ratio 23.1 (10.0-20.0); Blood Urea Nitrogen 9 mg/dL (9-23); Glucose 130 mg/dL (74-106); Magnesium 1.4 mg/dL (1.6-2.6)
[2023-12-11 06:12] LABS: Platelet Estimate Adequate
[2023-12-11 06:13] LABS: Anisocytosis Moderate; Large Platelets FEW
[2023-12-11] MEDS ORDERED: ACETAMINOPHEN 325 MG TAB PO PRN ×2 (06:30)
[2023-12-11] MEDS ORDERED: POTASSIUM EFFERVESENT TAB 25 MEQ PO ONE (06:30)
[2023-12-11] MEDS ORDERED: MAGNESIUM SULFATE 1GM/100ML 100 ML IV SCH (07:00)
[2023-12-11 07:57] LABS: Base Excess 0.1 mmol/L (-2.0-2.0)
[2023-12-11] MEDS: POTASSIUM EFFERVESENT TAB 25 MEQ PO ONE ×2 (08:02→12:41)
[2023-12-11] MEDS: MAGNESIUM SULFATE 1GM/100ML 100 ML IV SCH (08:02)
[2023-12-11] MEDS: DICYCLOMINE HCL 10 MG CAP PO PRN (17:41)
[2023-12-11] MEDS ORDERED: Vital AF 1.2 Cal 1 liter bottle GT SCH (20:00)
[2023-12-12] VITALS (39 sets, daily range): BP systolic 116–148; BP diastolic 54–88; PULSE 76–100; RESP 16–33; TEMP 99.3–100.5; O2SAT 91–100
[2023-12-12 03:59] LABS: Basophils # (auto) 0 10 ^3/uL (0-0.2); Basophils % (auto) 0.2 % (0.0-2.0); Eosinophils # (auto) 0.2 10 ^3/uL (0-0.8); Eosinophils % (auto) 2.8 % (0.0-7.0); Hematocrit 26.9 % (36.0-46.0); Hemoglobin 8.5 g/dL (12.2-16.2); Lymphocytes # (auto) 2.1 10 ^3/uL (0.4-5.4); Lymphocytes % (auto) 24.3 % (10.0-50.0); Mean Corpuscular Hgb Conc. 31.5 g/dL (32.0-36.0); Mean Corpuscular Volume 88.7 fL (80.0-100.0); Monocytes # (auto) 0.7 10 ^3/uL (0-1.3); Monocytes % (auto) 7.5 % (0.0-12.0); Neutrophils # (auto) 5.7 10 ^3/uL (1.6-8.6); Neutrophils % (auto) 65.2 % (37.0-80.0); Nucleated Red Blood Cells % 0.1 %; Red Blood Cells 3.03 10^6/uL (4.0-5.20); White Blood Cell 8.8 10^3/uL (4.4-10.8)
[2023-12-12 04:07] LABS: Chloride 108 mmol/L (98-107); Potassium 3.2 mmol/L (3.5-5.1); Sodium 139 mmol/L (136-145)
[2023-12-12 04:08] LABS: Anion Gap 6 (5-15); Calcium 8.5 mg/dL (8.7-10.4); Carbon Dioxide 25 mmol/L (20-30)
[2023-12-12 04:13] LABS: BUN/Creatinine Ratio 23.7 (10.0-20.0); Blood Urea Nitrogen 9 mg/dL (9-23); Glucose 131 mg/dL (74-106); Magnesium 1.5 mg/dL (1.6-2.6)
[2023-12-12 04:18] LABS: Red Cell Distribution Width 26.9 % (11.8-14.3)
[2023-12-12] MEDS: PANTOPRAZOLE 40 MG/10 ML VIAL INJ IV SCH (10:14)
[2023-12-12] MEDS: POTASSIUM CHL 20MEQ/100ML 100 ML IV SCH (14:59)
[2023-12-12] MEDS: cefTAZidime 1 GM in SODIUM CHL 0.9% 50 ML IV ONE (15:33)
[2023-12-12] MEDS: MAGNESIUM SULFATE 1GM/100ML 100 ML IV SCH (17:00)
[2023-12-12] MEDS: cefTAZidime 1 GM in SODIUM CHL 0.9% 50 ML IV SCH (23:11)
[2023-12-13] VITALS (49 sets, daily range): BP systolic 101–152; BP diastolic 45–85; PULSE 78–91; RESP 12–34; TEMP 98.9–99.5; O2SAT 92–100
[2023-12-13 03:52] LABS: Anion Gap 8 (5-15); Calcium 8.7 mg/dL (8.7-10.4); Carbon Dioxide 24 mmol/L (20-30); Chloride 106 mmol/L (98-107); Potassium 3.8 mmol/L (3.5-5.1); Sodium 138 mmol/L (136-145)
[2023-12-13 03:58] LABS: BUN/Creatinine Ratio 17.5 (10.0-20.0); Blood Urea Nitrogen 7 mg/dL (9-23); Glucose 121 mg/dL (74-106)
[2023-12-13 03:59] LABS: Magnesium 1.7 mg/dL (1.6-2.6)
[2023-12-13] MEDS: MAGNESIUM OXIDE 400 MG TAB PO ONE (14:25)
[2023-12-13] MEDS: cloNIDine HCL 0.1 MG TAB PO SCH (21:59)
[2023-12-14] VITALS (76 sets, daily range): BP systolic 100–173; BP diastolic 41–101; PULSE 80–98; RESP 12–32; TEMP 98.9–100.5; O2SAT 89–100
[2023-12-14 09:14] LABS: Alanine Aminotransferase 63 U/L (7-40); Albumin 2.8 g/dL (3.2-4.8); Alkaline Phosphatase 111 U/L (46-116); Anion Gap 5 (5-15); Aspartate Aminotransferase 37 U/L (13-40); BUN/Creatinine Ratio 15.9 (10.0-20.0); Blood Urea Nitrogen 7 mg/dL (9-23); Calcium 8.8 mg/dL (8.7-10.4); Carbon Dioxide 26 mmol/L (20-30); Chloride 106 mmol/L (98-107); Glucose 124 mg/dL (74-106); Magnesium 1.5 mg/dL (1.6-2.6); Potassium 3.5 mmol/L (3.5-5.1); Sodium 137 mmol/L (136-145)
[2023-12-14 09:15] LABS: Bilirubin, Total 0.7 mg/dL (0.2-1.0); Total Protein 6.1 g/dL (5.7-8.2)
[2023-12-14] MEDS: MAGNESIUM OXIDE 400 MG TAB PO SCH (09:56)
[2023-12-14] MEDS: POTASSIUM EFFERVESENT TAB 25 MEQ GT ONE (13:53)
[2023-12-14] MEDS: MAGNESIUM SULFATE 1GM/100ML 100 ML IV SCH (13:54)
[2023-12-14] MEDS: MAGNESIUM SULFATE 1GM/100ML 100 ML IV ONE (18:47)
[2023-12-15] VITALS (40 sets, daily range): BP systolic 106–152; BP diastolic 55–86; PULSE 74–100; RESP 9–31; TEMP 97.7–99.2; O2SAT 94–100
[2023-12-15 04:30] LABS: Chloride 104 mmol/L (98-107); Potassium 3.4 mmol/L (3.5-5.1); Sodium 137 mmol/L (136-145)
[2023-12-15 04:31] LABS: Anion Gap 6 (5-15); Calcium 8.6 mg/dL (8.5-10.1); Carbon Dioxide 27 mmol/L (20-30)
[2023-12-15 04:36] LABS: Glucose 110 mg/dL (74-106)
[2023-12-15 04:37] LABS: BUN/Creatinine Ratio 15.4 (10.0-20.0); Blood Urea Nitrogen 6 mg/dL (9-23)
[2023-12-15 04:49] LABS: Magnesium 1.8 mg/dL (1.6-2.6)
[2023-12-15] MEDS: POTASSIUM CHL 20MEQ/100ML 100 ML IV ONE (05:15)
[2023-12-15] MEDS: ENOXAPARIN SOD 40 MG/0.4 ML SYRINGE SC ONE (16:10)
[2023-12-16] VITALS (40 sets, daily range): BP systolic 106–167; BP diastolic 47–88; PULSE 73–94; RESP 11–29; TEMP 97.9–99.2; O2SAT 96–100
[2023-12-16 04:09] LABS: Basophils # (auto) 0.1 10 ^3/uL (0-0.2); Basophils % (auto) 0.5 % (0.0-2.0); Eosinophils # (auto) 0.4 10 ^3/uL (0-0.8); Eosinophils % (auto) 3.8 % (0.0-7.0); Hematocrit 29.1 % (36.0-46.0); Hemoglobin 9.4 g/dL (12.2-16.2); Lymphocytes # (auto) 2.5 10 ^3/uL (0.4-5.4); Lymphocytes % (auto) 24.5 % (10.0-50.0); Mean Corpuscular Hgb Conc. 32.2 g/dL (32.0-36.0); Monocytes # (auto) 0.7 10 ^3/uL (0-1.3); Monocytes % (auto) 7.1 % (0.0-12.0); Neutrophils # (auto) 6.6 10 ^3/uL (1.6-8.6); Neutrophils % (auto) 64.1 % (37.0-80.0); Nucleated Red Blood Cells % 0.1 %; Red Blood Cells 3.23 10^6/uL (4.0-5.20); White Blood Cell 10.3 10^3/uL (4.4-10.8)
[2023-12-16 04:13] LABS: Red Cell Distribution Width 24.9 % (11.8-14.3)
[2023-12-16 04:27] LABS: Anion Gap 5 (5-15); Carbon Dioxide 26 mmol/L (20-30); Chloride 105 mmol/L (98-107); Potassium 3.6 mmol/L (3.5-5.1); Sodium 136 mmol/L (136-145)
[2023-12-16 04:28] LABS: Calcium 8.7 mg/dL (8.7-10.4)
[2023-12-16 04:33] LABS: Glucose 111 mg/dL (74-106)
[2023-12-16 04:39] LABS: BUN/Creatinine Ratio 12.5 (10.0-20.0); Blood Urea Nitrogen < 5 mg/dL (9-23)
[2023-12-16 05:57] LABS: Platelet Estimate Adequate
[2023-12-16 05:58] LABS: Anisocytosis Moderate
[2023-12-16] MEDS: ENOXAPARIN SOD 40 MG/0.4 ML SYRINGE SC SCH (11:30)
[2023-12-16] MEDS: Ensure HIGH Protein Chocolate 8oz Bottle PO SCH (12:00)
[2023-12-17] VITALS (36 sets, daily range): BP systolic 116–173; BP diastolic 47–96; PULSE 77–95; RESP 14–30; TEMP 98.4–100; O2SAT 91–100
[2023-12-17 04:57] LABS: Basophils # (auto) 0.1 10 ^3/uL (0-0.2); Basophils % (auto) 0.5 % (0.0-2.0); Chloride 103 mmol/L (98-107); Eosinophils # (auto) 0.4 10 ^3/uL (0-0.8); Eosinophils % (auto) 3.4 % (0.0-7.0); Hematocrit 30.4 % (36.0-46.0); Hemoglobin 9.6 g/dL (12.2-16.2); Lymphocytes # (auto) 2.6 10 ^3/uL (0.4-5.4); Lymphocytes % (auto) 21.6 % (10.0-50.0); Mean Corpuscular Hemoglobin 28.4 pg (28.0-32.0); Mean Corpuscular Hgb Conc. 31.7 g/dL (32.0-36.0); Mean Corpuscular Volume 89.8 fL (80.0-100.0); Monocytes # (auto) 0.9 10 ^3/uL (0-1.3); Monocytes % (auto) 7.2 % (0.0-12.0); Neutrophils # (auto) 8.1 10 ^3/uL (1.6-8.6); Neutrophils % (auto) 67.3 % (37.0-80.0); Nucleated Red Blood Cells % 0.1 %; Potassium 3.5 mmol/L (3.5-5.1); Red Blood Cells 3.39 10^6/uL (4.0-5.20); Sodium 135 mmol/L (136-145)
[2023-12-17 04:58] LABS: Anion Gap 6 (5-15); Calcium 8.7 mg/dL (8.7-10.4); Carbon Dioxide 26 mmol/L (20-30)
[2023-12-17 05:03] LABS: Glucose 111 mg/dL (74-106)
[2023-12-17 05:04] LABS: Red Cell Distribution Width 23.7 % (11.8-14.3)
[2023-12-17 05:05] LABS: BUN/Creatinine Ratio 12.8 (10.0-20.0); Blood Urea Nitrogen < 5 mg/dL (9-23)
[2023-12-18] VITALS (28 sets, daily range): BP systolic 114–158; BP diastolic 66–91; PULSE 78–106; RESP 9–33; TEMP 98.3–101.1; O2SAT 91–100
[2023-12-18 04:09] LABS: Basophils # (auto) 0 10 ^3/uL (0-0.2); Basophils % (auto) 0.4 % (0.0-2.0); Eosinophils # (auto) 0.3 10 ^3/uL (0-0.8); Eosinophils % (auto) 3.4 % (0.0-7.0); Hemoglobin 9.6 g/dL (12.2-16.2); Lymphocytes # (auto) 2.7 10 ^3/uL (0.4-5.4); Lymphocytes % (auto) 26.4 % (10.0-50.0); Mean Corpuscular Hemoglobin 29.2 pg (28.0-32.0); Mean Corpuscular Volume 91.1 fL (80.0-100.0); Monocytes # (auto) 0.9 10 ^3/uL (0-1.3); Monocytes % (auto) 9.1 % (0.0-12.0); Neutrophils # (auto) 6.1 10 ^3/uL (1.6-8.6); Neutrophils % (auto) 60.7 % (37.0-80.0); Nucleated Red Blood Cells % 0.2 %; Red Blood Cells 3.29 10^6/uL (4.0-5.20); White Blood Cell 10.1 10^3/uL (4.4-10.8)
[2023-12-18 04:18] LABS: Anion Gap 7 (5-15); Calcium 8.6 mg/dL (8.7-10.4); Carbon Dioxide 24 mmol/L (20-30); Chloride 105 mmol/L (98-107); Potassium 3.3 mmol/L (3.5-5.1); Sodium 136 mmol/L (136-145)
[2023-12-18 04:21] LABS: Red Cell Distribution Width 23.6 % (11.8-14.3)
[2023-12-18 04:24] LABS: Glucose 105 mg/dL (74-106)
[2023-12-18 04:29] LABS: BUN/Creatinine Ratio 13.2 (10.0-20.0); Blood Urea Nitrogen < 5 mg/dL (9-23)
[2023-12-18] MEDS ORDERED: POTASSIUM CHL 20 Meq TABLET PO ONE (06:45)
[2023-12-18] MEDS: POTASSIUM CHL 20MEQ/100ML 100 ML IV SCH (08:28)
[2023-12-18] MEDS: ONDANSETRON HCL 4 MG/2 ML VIAL ONE (12:57)
[2023-12-18] MEDS ORDERED: POTASSIUM CHLORIDE 40 MEQ, LIDOCAINE 1% (LOCAL ANESTH.) 4 ML in SODIUM CHL 0.9% 250 ML IV ONE (14:15)
[2023-12-18] MEDS: MAGNESIUM SULFATE 1GM/100ML 100 ML IV SCH (14:56)
[2023-12-18] MEDS: METOCLOPRAMIDE HCL 5MG/ml INJ 2ml VIAL IV ONE (17:46)
[2023-12-18] MEDS: METOCLOPRAMIDE HCL 5MG/ml INJ 2ml VIAL ONE (17:46)
[2023-12-18] MEDS: METOCLOPRAMIDE HCL 5MG/ml INJ 2ml VIAL IV SCH (23:36)
[2023-12-19] VITALS (35 sets, daily range): BP systolic 117–160; BP diastolic 65–91; PULSE 79–106; RESP 13–28; TEMP 98.5–100.3; O2SAT 95–100
[2023-12-19 05:16] LABS: Basophils # (auto) 0.1 10 ^3/uL (0-0.2); Basophils % (auto) 0.4 % (0.0-2.0); Eosinophils # (auto) 0.3 10 ^3/uL (0-0.8); Hematocrit 32.7 % (36.0-46.0); Hemoglobin 10.3 g/dL (12.2-16.2); Lymphocytes # (auto) 3.3 10 ^3/uL (0.4-5.4); Lymphocytes % (auto) 23.2 % (10.0-50.0); Mean Corpuscular Hemoglobin 28.5 pg (28.0-32.0); Mean Corpuscular Hgb Conc. 31.5 g/dL (32.0-36.0); Mean Corpuscular Volume 90.5 fL (80.0-100.0); Monocytes # (auto) 1.2 10 ^3/uL (0-1.3); Monocytes % (auto) 8.2 % (0.0-12.0); Neutrophils # (auto) 9.4 10 ^3/uL (1.6-8.6); Neutrophils % (auto) 66.2 % (37.0-80.0); Nucleated Red Blood Cells % 0.1 %; Red Blood Cells 3.62 10^6/uL (4.0-5.20); White Blood Cell 14.2 10^3/uL (4.4-10.8)
[2023-12-19 05:36] LABS: Alanine Aminotransferase 31 U/L (7-40); Albumin 2.8 g/dL (3.2-4.8); Alkaline Phosphatase 86 U/L (46-116); Anion Gap 10 (5-15); Aspartate Aminotransferase 16 U/L (13-40); Calcium 8.9 mg/dL (8.7-10.4); Carbon Dioxide 21 mmol/L (20-30); Chloride 104 mmol/L (98-107); Glucose 111 mg/dL (74-106); Potassium 3.7 mmol/L (3.5-5.1); Sodium 135 mmol/L (136-145); Total Protein 6.1 g/dL (5.7-8.2)
[2023-12-19 05:47] LABS: BUN/Creatinine Ratio 12.5 (10.0-20.0); Blood Urea Nitrogen < 5 mg/dL (9-23)
[2023-12-19 05:56] LABS: Bilirubin, Total 0.5 mg/dL (0.2-1.0)
[2023-12-19 06:09] LABS: Anisocytosis Slight; Platelet Estimate Adequate
[2023-12-19] MEDS: PIPERACILLIN-TAZOB 3.375GM 100 ML IV ONE (14:48)
[2023-12-19] MEDS: PIPERACILLIN-TAZOB 3.375GM 100 ML IV SCH (21:57)
[2023-12-20] VITALS (33 sets, daily range): BP systolic 128–161; BP diastolic 70–105; PULSE 76–95; RESP 11–32; TEMP 98.2–100; O2SAT 94–100
[2023-12-20 04:12] LABS: Basophils # (auto) 0 10 ^3/uL (0-0.2); Basophils % (auto) 0.4 % (0.0-2.0); Eosinophils # (auto) 0.3 10 ^3/uL (0-0.8); Eosinophils % (auto) 2.6 % (0.0-7.0); Hematocrit 34.1 % (36.0-46.0); Hemoglobin 10.7 g/dL (12.2-16.2); Lymphocytes # (auto) 2.7 10 ^3/uL (0.4-5.4); Lymphocytes % (auto) 23.6 % (10.0-50.0); Mean Corpuscular Hemoglobin 28.3 pg (28.0-32.0); Mean Corpuscular Hgb Conc. 31.3 g/dL (32.0-36.0); Mean Corpuscular Volume 90.4 fL (80.0-100.0); Monocytes # (auto) 0.9 10 ^3/uL (0-1.3); Monocytes % (auto) 8.3 % (0.0-12.0); Neutrophils # (auto) 7.4 10 ^3/uL (1.6-8.6); Neutrophils % (auto) 65.1 % (37.0-80.0); Nucleated Red Blood Cells % 0.1 %; Red Blood Cells 3.77 10^6/uL (4.0-5.20); Red Cell Distribution Width 23.1 % (11.8-14.3); White Blood Cell 11.3 10^3/uL (4.4-10.8)
[2023-12-20 04:20] LABS: Chloride 103 mmol/L (98-107); Potassium 3.6 mmol/L (3.5-5.1); Sodium 136 mmol/L (136-145)
[2023-12-20 04:21] LABS: Anion Gap 9 (5-15); Calcium 9.1 mg/dL (8.7-10.4); Carbon Dioxide 24 mmol/L (20-30)
[2023-12-20 04:26] LABS: BUN/Creatinine Ratio 12.8 (10.0-20.0); Blood Urea Nitrogen 6 mg/dL (9-23); Glucose 116 mg/dL (74-106)
[2023-12-20] MEDS: GASTROGRAFIN 120 ML SOL ONE (07:40)
[2023-12-20 13:17] LABS: Urine Bacteria None Seen /hpf (None Seen)
[2023-12-20 14:47] LABS: Urine Amorphous Crystal MOD /hpf (None Seen); Urine Blood 1+ /uL (Negative); Urine Clarity Ex.Turbid (Clear); Urine Color Dark-Brown (Yellow); Urine Protein, UAD 2+ (Negative); Urine Specific Gravity 1.036 (1.001-1.035); Urine Urobilinogen Normal (Negative); Urine WBC 67 /hpf (0 - 5)
[2023-12-20] MEDS ORDERED: CLINIMIX PER PHARMACY 0 ML IV SCH (17:15)
[2023-12-20 20:18] LABS: Bilirubin, Direct 0.3 mg/dL (<0.3); Bilirubin, Total 0.5 mg/dL (0.2-1.0); Phosphorus 4.5 mg/dL (2.4-5.1); Total Protein 6.7 g/dL (5.7-8.2)
[2023-12-20] MEDS: MAGNESIUM SULFATE 1GM/100ML 100 ML IV ONE (20:33)
[2023-12-21] VITALS (37 sets, daily range): BP systolic 111–153; BP diastolic 64–97; PULSE 70–88; RESP 12–28; TEMP 98.3–98.8; O2SAT 95–100
[2023-12-21] MEDS ORDERED: DEXTROSE (50%) 50ML SYRG IV SCH
[2023-12-21] MEDS: InsuLIN REG 1unit/0.01ml Soln (100units/ml) SC SCH
[2023-12-21] MEDS: ACCU-CHEK COMFORT CURVE STRIP VI SCH (00:03)
[2023-12-21] MEDS: AMINO ACID INFUSION IN D5W 1,000 ML IV NR ×2 (01:55→20:10)
[2023-12-21 04:42] LABS: Alanine Aminotransferase 24 U/L (7-40); Albumin 2.9 g/dL (3.2-4.8); Alkaline Phosphatase 80 U/L (46-116); Anion Gap 7 (5-15); Aspartate Aminotransferase 14 U/L (13-40); BUN/Creatinine Ratio 19.2 (10.0-20.0); Bilirubin, Total 0.5 mg/dL (0.2-1.0); Blood Urea Nitrogen 10 mg/dL (9-23); Calcium 9.2 mg/dL (8.7-10.4); Carbon Dioxide 29 mmol/L (20-30); Chloride 104 mmol/L (98-107); Glucose 124 mg/dL (74-106); Magnesium 1.7 mg/dL (1.6-2.6); Phosphorus 4.3 mg/dL (2.4-5.1); Potassium 3.1 mmol/L (3.5-5.1); Sodium 140 mmol/L (136-145)
[2023-12-21 04:43] LABS: Total Protein 6.6 g/dL (5.7-8.2)
[2023-12-21] MEDS: POTASSIUM CHL 20MEQ/100ML 100 ML IV ONE (08:35)
[2023-12-21] MEDS: MAGNESIUM SULFATE 1GM/100ML 100 ML IV ONE (11:13)
[2023-12-21] MEDS: POTASSIUM CHL 20MEQ/100ML 100 ML IV SCH (11:15)
[2023-12-22] VITALS (27 sets, daily range): BP systolic 119–151; BP diastolic 52–91; PULSE 71–88; RESP 14–27; TEMP 97.8–99.3; O2SAT 95–100
[2023-12-22 04:26] LABS: Basophils # (auto) 0 10 ^3/uL (0-0.2); Basophils % (auto) 0.3 % (0.0-2.0); Eosinophils # (auto) 0.3 10 ^3/uL (0-0.8); Eosinophils % (auto) 3.3 % (0.0-7.0); Lymphocytes # (auto) 3.9 10 ^3/uL (0.4-5.4); Lymphocytes % (auto) 37.4 % (10.0-50.0); Mean Corpuscular Hemoglobin 28.8 pg (28.0-32.0); Mean Corpuscular Hgb Conc. 31.3 g/dL (32.0-36.0); Mean Corpuscular Volume 91.8 fL (80.0-100.0); Monocytes # (auto) 0.9 10 ^3/uL (0-1.3); Monocytes % (auto) 9.1 % (0.0-12.0); Neutrophils # (auto) 5.2 10 ^3/uL (1.6-8.6); Neutrophils % (auto) 49.9 % (37.0-80.0); Red Blood Cells 3.81 10^6/uL (4.0-5.20); Red Cell Distribution Width 22.8 % (11.8-14.3); White Blood Cell 10.4 10^3/uL (4.4-10.8)
[2023-12-22 04:42] LABS: Alanine Aminotransferase 24 U/L (7-40); Alkaline Phosphatase 78 U/L (46-116); Anion Gap 5 (5-15); Aspartate Aminotransferase 17 U/L (13-40); BUN/Creatinine Ratio 15.7 (10.0-20.0); Blood Urea Nitrogen 8 mg/dL (9-23); Calcium 9.2 mg/dL (8.7-10.4); Carbon Dioxide 27 mmol/L (20-30); Chloride 105 mmol/L (98-107); Glucose 122 mg/dL (74-106); Magnesium 1.8 mg/dL (1.6-2.6); Potassium 3.5 mmol/L (3.5-5.1); Sodium 137 mmol/L (136-145)
[2023-12-22 04:43] LABS: Bilirubin, Total 0.5 mg/dL (0.2-1.0); Total Protein 6.8 g/dL (5.7-8.2)
[2023-12-22] MEDS ORDERED: PPN PER PHARMACY 0 ML IV SCH (11:15)
[2023-12-22] MEDS: PIPERACILLIN-TAZOB 3.375GM 100 ML IV SCH (11:52)
[2023-12-22] MEDS: POTASSIUM CHL 20MEQ/100ML 100 ML IV ONE (15:31)
[2023-12-22] MEDS: PPN PER PHARMACY IV NR (21:33)
[2023-12-23] VITALS (21 sets, daily range): BP systolic 132–150; BP diastolic 77–85; PULSE 27–86; RESP 11–29; TEMP 98.7–99.6; O2SAT 93–100
[2023-12-23 05:36] LABS: Basophils # (auto) 0.1 10 ^3/uL (0-0.2); Basophils % (auto) 0.6 % (0.0-2.0); Eosinophils # (auto) 0.4 10 ^3/uL (0-0.8); Eosinophils % (auto) 2.8 % (0.0-7.0); Hematocrit 33.5 % (36.0-46.0); Hemoglobin 10.8 g/dL (12.2-16.2); Lymphocytes # (auto) 4.5 10 ^3/uL (0.4-5.4); Lymphocytes % (auto) 36.8 % (10.0-50.0); Mean Corpuscular Hemoglobin 29.2 pg (28.0-32.0); Mean Corpuscular Hgb Conc. 32.1 g/dL (32.0-36.0); Mean Corpuscular Volume 91.2 fL (80.0-100.0); Monocytes # (auto) 1.1 10 ^3/uL (0-1.3); Monocytes % (auto) 8.7 % (0.0-12.0); Neutrophils # (auto) 6.3 10 ^3/uL (1.6-8.6); Neutrophils % (auto) 51.1 % (37.0-80.0); Nucleated Red Blood Cells % 0.1 %; Red Blood Cells 3.68 10^6/uL (4.0-5.20); White Blood Cell 12.3 10^3/uL (4.4-10.8)
[2023-12-23 05:44] LABS: Red Cell Distribution Width 21.5 % (11.8-14.3)
[2023-12-23 05:51] LABS: Alanine Aminotransferase 24 U/L (7-40); Alkaline Phosphatase 76 U/L (46-116); Anion Gap 4 (5-15); BUN/Creatinine Ratio 16.4 (10.0-20.0); Blood Urea Nitrogen 9 mg/dL (9-23); Carbon Dioxide 27 mmol/L (20-30); Chloride 104 mmol/L (98-107); Glucose 126 mg/dL (74-106); Magnesium 1.6 mg/dL (1.6-2.6); Potassium 3.3 mmol/L (3.5-5.1); Sodium 135 mmol/L (136-145)
[2023-12-23 05:52] LABS: Albumin 2.9 g/dL (3.2-4.8); Aspartate Aminotransferase 17 U/L (13-40); Bilirubin, Total 0.5 mg/dL (0.2-1.0); Phosphorus 3.2 mg/dL (2.4-5.1); Total Protein 6.7 g/dL (5.7-8.2)
[2023-12-23 06:23] LABS: Triglycerides 124 mg/dL (< 150)
[2023-12-23] MEDS: MAGNESIUM SULFATE 1GM/100ML 100 ML IV SCH (10:42)
[2023-12-23] MEDS: POTASSIUM CHL 20MEQ/100ML 100 ML IV SCH (12:56)
[2023-12-23] MEDS ORDERED: TPN PER PHARMACY 0 ML IV SCH (14:30)
[2023-12-23] MEDS: PPN PER PHARMACY IV NR (20:45)
[2023-12-24] VITALS (24 sets, daily range): BP systolic 100–150; BP diastolic 68–91; PULSE 74–87; RESP 15–29; TEMP 98.5–99.7; O2SAT 95–100
[2023-12-24 06:07] LABS: Basophils # (auto) 0 10 ^3/uL (0-0.2); Basophils % (auto) 0.5 % (0.0-2.0); Eosinophils # (auto) 0.3 10 ^3/uL (0-0.8); Eosinophils % (auto) 2.9 % (0.0-7.0); Hematocrit 33.1 % (36.0-46.0); Hemoglobin 10.6 g/dL (12.2-16.2); Lymphocytes # (auto) 3.8 10 ^3/uL (0.4-5.4); Lymphocytes % (auto) 37.6 % (10.0-50.0); Mean Corpuscular Hemoglobin 29.4 pg (28.0-32.0); Mean Corpuscular Hgb Conc. 32.2 g/dL (32.0-36.0); Mean Corpuscular Volume 91.4 fL (80.0-100.0); Monocytes # (auto) 0.8 10 ^3/uL (0-1.3); Monocytes % (auto) 7.6 % (0.0-12.0); Neutrophils # (auto) 5.2 10 ^3/uL (1.6-8.6); Neutrophils % (auto) 51.4 % (37.0-80.0); Red Blood Cells 3.62 10^6/uL (4.0-5.20); White Blood Cell 10.2 10^3/uL (4.4-10.8)
[2023-12-24 06:09] LABS: Red Cell Distribution Width 21.4 % (11.8-14.3)
[2023-12-24 06:24] LABS: Alanine Aminotransferase 30 U/L (7-40); Albumin 2.8 g/dL (3.2-4.8); Alkaline Phosphatase 75 U/L (46-116); Anion Gap 5 (5-15); Aspartate Aminotransferase 23 U/L (13-40); BUN/Creatinine Ratio 15.2 (10.0-20.0); Blood Urea Nitrogen 7 mg/dL (9-23); Calcium 8.8 mg/dL (8.7-10.4); Carbon Dioxide 27 mmol/L (20-30); Chloride 103 mmol/L (98-107); Glucose 127 mg/dL (74-106); Magnesium 1.7 mg/dL (1.6-2.6); Potassium 3.4 mmol/L (3.5-5.1); Sodium 135 mmol/L (136-145)
[2023-12-24 06:25] LABS: Bilirubin, Total 0.5 mg/dL (0.2-1.0); Phosphorus 3.1 mg/dL (2.4-5.1); Total Protein 6.3 g/dL (5.7-8.2)
[2023-12-24] MEDS: POTASSIUM CHL 20MEQ/100ML 100 ML IV ONE (07:11)
[2023-12-24 12:31] LABS: Urine Bacteria FEW /hpf (None Seen); Urine Blood 2+ /uL (Negative); Urine Budding Yeast LOADED /hpf (None Seen); Urine Hyphae Yeast PRESENT /hpf; Urine Mucus FEW (None Seen); Urine Protein, UAD 2+ (Negative); Urine Specific Gravity 1.026 (1.001-1.035); Urine Urobilinogen Normal (Negative); Urine WBC 347 /hpf (0 - 5); Urine WBC Clumps PRESENT /hpf (None Seen)
[2023-12-24 12:39] LABS: Urine Clarity Cloudy (Clear); Urine Color Yellow (Yellow)
[2023-12-24] MEDS: FLUCONAZOLE 200MG/100ML 100 ML IV SCH (12:50)
[2023-12-24] MEDS: PPN PER PHARMACY IV NR (20:11)
[2023-12-25] VITALS (22 sets, daily range): BP systolic 126–166; BP diastolic 80–89; PULSE 69–85; RESP 16–33; TEMP 98.3–100.1; O2SAT 96–100
[2023-12-25 06:33] LABS: Basophils # (auto) 0.1 10 ^3/uL (0-0.2); Basophils % (auto) 0.5 % (0.0-2.0); Eosinophils # (auto) 0.3 10 ^3/uL (0-0.8); Eosinophils % (auto) 2.5 % (0.0-7.0); Hematocrit 31.4 % (36.0-46.0); Hemoglobin 10.3 g/dL (12.2-16.2); Lymphocytes # (auto) 4.1 10 ^3/uL (0.4-5.4); Mean Corpuscular Hemoglobin 29.5 pg (28.0-32.0); Mean Corpuscular Hgb Conc. 32.6 g/dL (32.0-36.0); Mean Corpuscular Volume 90.4 fL (80.0-100.0); Monocytes # (auto) 0.9 10 ^3/uL (0-1.3); Monocytes % (auto) 8.5 % (0.0-12.0); Neutrophils # (auto) 5.2 10 ^3/uL (1.6-8.6); Neutrophils % (auto) 49.5 % (37.0-80.0); Red Blood Cells 3.48 10^6/uL (4.0-5.20); White Blood Cell 10.5 10^3/uL (4.4-10.8)
[2023-12-25 06:35] LABS: Red Cell Distribution Width 20.8 % (11.8-14.3)
[2023-12-25 06:51] LABS: Alanine Aminotransferase 46 U/L (7-40); Alkaline Phosphatase 85 U/L (46-116)
[2023-12-25 06:52] LABS: Albumin 2.9 g/dL (3.2-4.8); Anion Gap 8 (5-15); Aspartate Aminotransferase 31 U/L (13-40); Bilirubin, Total 0.5 mg/dL (0.2-1.0); Blood Urea Nitrogen 8 mg/dL (9-23); Calcium 8.6 mg/dL (8.5-10.1); Carbon Dioxide 25 mmol/L (20-30); Chloride 104 mmol/L (98-107); Glucose 115 mg/dL (74-106); Magnesium 1.7 mg/dL (1.6-2.6); Phosphorus 3.6 mg/dL (2.4-5.1); Potassium 3.4 mmol/L (3.5-5.1); Sodium 137 mmol/L (136-145); Total Protein 6.3 g/dL (5.7-8.2)
[2023-12-25] MEDS: POTASSIUM CHL 20MEQ/100ML 100 ML IV ONE (16:24)
[2023-12-25] MEDS: ONDANSETRON HCL 4 MG/2 ML VIAL IV PRN (16:24)
[2023-12-25] MEDS: PPN PER PHARMACY IV NR (21:15)
[2023-12-25] MEDS: PANTOPRAZOLE 40 MG/10 ML VIAL INJ IV SCH (23:07)
[2023-12-26] VITALS (31 sets, daily range): BP systolic 124–150; BP diastolic 70–87; PULSE 72–97; RESP 14–32; TEMP 98.3–99.3; O2SAT 93–100
[2023-12-26] MEDS: METOCLOPRAMIDE HCL 5MG/ml INJ 2ml VIAL IV SCH
[2023-12-26 06:58] LABS: Basophils # (auto) 0.1 10 ^3/uL (0-0.2); Basophils % (auto) 0.6 % (0.0-2.0); Eosinophils # (auto) 0.3 10 ^3/uL (0-0.8); Eosinophils % (auto) 2.1 % (0.0-7.0); Hematocrit 32.4 % (36.0-46.0); Hemoglobin 10.3 g/dL (12.2-16.2); Lymphocytes # (auto) 5.4 10 ^3/uL (0.4-5.4); Lymphocytes % (auto) 37.8 % (10.0-50.0); Mean Corpuscular Hemoglobin 28.8 pg (28.0-32.0); Mean Corpuscular Hgb Conc. 31.8 g/dL (32.0-36.0); Mean Corpuscular Volume 90.4 fL (80.0-100.0); Monocytes # (auto) 1.1 10 ^3/uL (0-1.3); Neutrophils # (auto) 7.3 10 ^3/uL (1.6-8.6); Neutrophils % (auto) 51.5 % (37.0-80.0); Red Blood Cells 3.58 10^6/uL (4.0-5.20); White Blood Cell 14.3 10^3/uL (4.4-10.8)
[2023-12-26 07:02] LABS: Red Cell Distribution Width 20.5 % (11.8-14.3)
[2023-12-26 07:04] LABS: Alanine Aminotransferase 51 U/L (7-40); Albumin 2.8 g/dL (3.2-4.8); Alkaline Phosphatase 88 U/L (46-116); Anion Gap 7 (5-15); Aspartate Aminotransferase 26 U/L (13-40); BUN/Creatinine Ratio 16.7 (10.0-20.0); Bilirubin, Total 0.4 mg/dL (0.2-1.0); Blood Urea Nitrogen 8 mg/dL (9-23); Carbon Dioxide 25 mmol/L (20-30); Chloride 104 mmol/L (98-107); Glucose 123 mg/dL (74-106); Magnesium 1.8 mg/dL (1.6-2.6); Phosphorus 4.2 mg/dL (2.4-5.1); Potassium 3.7 mmol/L (3.5-5.1); Sodium 136 mmol/L (136-145); Total Protein 6.5 g/dL (5.7-8.2)
[2023-12-26] MEDS: POTASSIUM CHLORIDE IV NR (20:00)
[2023-12-26] MEDS: FAT EMULSION IV NR (20:00)
[2023-12-26] MEDS: [UNRECOGNIZED DRUG - OTHER] IV NR (20:00)
[2023-12-26] MEDS: SODIUM CHLORIDE IV NR (20:00)
[2023-12-27] VITALS (32 sets, daily range): BP systolic 124–159; BP diastolic 72–93; PULSE 69–96; RESP 16–31; TEMP 98.6–99.6; O2SAT 94–100
[2023-12-27 05:22] LABS: Basophils # (auto) 0.1 10 ^3/uL (0-0.2); Basophils % (auto) 0.9 % (0.0-2.0); Eosinophils # (auto) 0.3 10 ^3/uL (0-0.8); Hematocrit 34.6 % (36.0-46.0); Hemoglobin 10.9 g/dL (12.2-16.2); Lymphocytes # (auto) 5.4 10 ^3/uL (0.4-5.4); Lymphocytes % (auto) 37.2 % (10.0-50.0); Mean Corpuscular Hemoglobin 28.9 pg (28.0-32.0); Mean Corpuscular Hgb Conc. 31.4 g/dL (32.0-36.0); Mean Corpuscular Volume 91.9 fL (80.0-100.0); Monocytes # (auto) 1.2 10 ^3/uL (0-1.3); Monocytes % (auto) 8.1 % (0.0-12.0); Neutrophils # (auto) 7.5 10 ^3/uL (1.6-8.6); Neutrophils % (auto) 51.8 % (37.0-80.0); Red Blood Cells 3.76 10^6/uL (4.0-5.20); White Blood Cell 14.5 10^3/uL (4.4-10.8)
[2023-12-27 05:41] LABS: Alanine Aminotransferase 52 U/L (7-40); Alkaline Phosphatase 97 U/L (46-116); Anion Gap 6 (5-15); Aspartate Aminotransferase 23 U/L (13-40); BUN/Creatinine Ratio 11.8 (10.0-20.0); Blood Urea Nitrogen 6 mg/dL (9-23); Calcium 8.9 mg/dL (8.5-10.1); Carbon Dioxide 25 mmol/L (20-30); Chloride 103 mmol/L (98-107); Glucose 136 mg/dL (74-106); Magnesium 1.8 mg/dL (1.6-2.6); Phosphorus 3.7 mg/dL (2.4-5.1); Sodium 134 mmol/L (136-145)
[2023-12-27 05:42] LABS: Bilirubin, Total 0.4 mg/dL (0.2-1.0); Total Protein 6.6 g/dL (5.7-8.2)
[2023-12-27] MEDS: PPN PER PHARMACY IV NR (20:50)
[2023-12-28] VITALS (20 sets, daily range): BP systolic 142–170; BP diastolic 72–99; PULSE 77–105; RESP 13–34; TEMP 98–99; O2SAT 97–100
[2023-12-28 05:12] LABS: Basophils # (auto) 0.1 10 ^3/uL (0-0.2); Basophils % (auto) 0.8 % (0.0-2.0); Eosinophils # (auto) 0.3 10 ^3/uL (0-0.8); Eosinophils % (auto) 2.6 % (0.0-7.0); Hematocrit 34.1 % (36.0-46.0); Hemoglobin 10.8 g/dL (12.2-16.2); Lymphocytes # (auto) 4.9 10 ^3/uL (0.4-5.4); Mean Corpuscular Hemoglobin 29.2 pg (28.0-32.0); Mean Corpuscular Hgb Conc. 31.7 g/dL (32.0-36.0); Mean Corpuscular Volume 92.1 fL (80.0-100.0); Monocytes % (auto) 8.6 % (0.0-12.0); Neutrophils # (auto) 5.1 10 ^3/uL (1.6-8.6); Nucleated Red Blood Cells % 0.2 %; White Blood Cell 11.4 10^3/uL (4.4-10.8)
[2023-12-28 05:17] LABS: Red Cell Distribution Width 20.1 % (11.8-14.3)
[2023-12-28 05:27] LABS: Alanine Aminotransferase 42 U/L (7-40); Albumin 3.1 g/dL (3.2-4.8); Alkaline Phosphatase 95 U/L (46-116); Anion Gap 5 (5-15); Aspartate Aminotransferase 20 U/L (13-40); BUN/Creatinine Ratio 19.6 (10.0-20.0); Bilirubin, Total 0.4 mg/dL (0.2-1.0); Blood Urea Nitrogen 9 mg/dL (9-23); Calcium 8.9 mg/dL (8.5-10.1); Carbon Dioxide 27 mmol/L (20-30); Chloride 105 mmol/L (98-107); Glucose 126 mg/dL (74-106); Magnesium 1.8 mg/dL (1.6-2.6); Phosphorus 3.5 mg/dL (2.4-5.1); Potassium 3.8 mmol/L (3.5-5.1); Sodium 137 mmol/L (136-145); Total Protein 6.6 g/dL (5.7-8.2)
[2023-12-28 09:22] LABS: Anisocytosis Slight; Platelet Estimate Adequate
[2023-12-28] MEDS: NYSTATIN (MOUTH-THROAT) 500,000 UNITS/5 ML SUSP MT SCH (11:47)
[2023-12-28] MEDS ORDERED: cloNIDine 0.2 mg/24hr 7DAY PATCH TD ONE (14:30)
[2023-12-28] MEDS: cloNIDine 0.2 mg/24hr 7DAY PATCH TD SCH (15:17)
[2023-12-28 16:20] LABS: INR 1.04 (0.9-1.15); Partial Thromboplastin Time 27.1 SEC (24.5-34.5)
[2023-12-28] MEDS: LIDOCAINE 1% (LOCAL ANESTH.) PF 5ml SDV ID ONE (18:35)
[2023-12-28] MEDS: PPN PER PHARMACY IV NR (20:00)
[2023-12-28] MEDS: SODIUM CHLOR 0.9% PF (SALINE LOCK) 10ML VIAL/SYR IV SCH (21:34)
[2023-12-29] VITALS (15 sets, daily range): BP systolic 147–188; BP diastolic 90–116; PULSE 81–114; RESP 14–29; TEMP 97.8–99; O2SAT 95–100
[2023-12-29 05:46] LABS: Alanine Aminotransferase 42 U/L (7-40); Albumin 3.1 g/dL (3.2-4.8); Alkaline Phosphatase 99 U/L (46-116); Anion Gap 10 (5-15); Aspartate Aminotransferase 20 U/L (13-40); Bilirubin, Total 0.4 mg/dL (0.2-1.0); Blood Urea Nitrogen 9 mg/dL (9-23); Calcium 9.2 mg/dL (8.7-10.4); Carbon Dioxide 24 mmol/L (20-30); Chloride 105 mmol/L (98-107); Glucose 126 mg/dL (74-106); Magnesium 1.7 mg/dL (1.6-2.6); Phosphorus 3.5 mg/dL (2.4-5.1); Potassium 3.4 mmol/L (3.5-5.1); Sodium 139 mmol/L (136-145); Total Protein 6.8 g/dL (5.7-8.2)
[2023-12-29 06:03] LABS: Basophils # (auto) 0.1 10 ^3/uL (0-0.2); Basophils % (auto) 0.6 % (0.0-2.0); Eosinophils # (auto) 0.3 10 ^3/uL (0-0.8); Hematocrit 33.6 % (36.0-46.0); Hemoglobin 10.7 g/dL (12.2-16.2); Lymphocytes # (auto) 4.9 10 ^3/uL (0.4-5.4); Lymphocytes % (auto) 37.6 % (10.0-50.0); Mean Corpuscular Hemoglobin 29.3 pg (28.0-32.0); Mean Corpuscular Volume 91.6 fL (80.0-100.0); Monocytes # (auto) 1.1 10 ^3/uL (0-1.3); Monocytes % (auto) 8.5 % (0.0-12.0); Neutrophils # (auto) 6.7 10 ^3/uL (1.6-8.6); Neutrophils % (auto) 51.3 % (37.0-80.0); Red Blood Cells 3.67 10^6/uL (4.0-5.20); Red Cell Distribution Width 19.7 % (11.8-14.3); White Blood Cell 13.1 10^3/uL (4.4-10.8)
[2023-12-29] MEDS: POTASSIUM CHL 20MEQ/100ML 100 ML IV ONE (11:24)
[2023-12-29] MEDS ORDERED: TPN PER PHARMACY 0 ML IV SCH (16:45)
[2023-12-29] MEDS: PPN PER PHARMACY IV NR (20:00)
[2023-12-30] VITALS (26 sets, daily range): BP systolic 129–166; BP diastolic 76–110; PULSE 81–113; RESP 12–33; TEMP 97.8–98.7; O2SAT 0–100
[2023-12-30 05:35] LABS: Alanine Aminotransferase 37 U/L (7-40); Albumin 3.1 g/dL (3.2-4.8); Alkaline Phosphatase 102 U/L (46-116); Anion Gap 10 (5-15); Aspartate Aminotransferase 18 U/L (13-40); Blood Urea Nitrogen 9 mg/dL (9-23); Calcium 9.3 mg/dL (8.7-10.4); Carbon Dioxide 25 mmol/L (20-30); Chloride 104 mmol/L (98-107); Glucose 126 mg/dL (74-106); Magnesium 1.8 mg/dL (1.6-2.6); Phosphorus 3.8 mg/dL (2.4-5.1); Potassium 3.6 mmol/L (3.5-5.1); Sodium 139 mmol/L (136-145)
[2023-12-30 05:36] LABS: Bilirubin, Total 0.4 mg/dL (0.2-1.0); Total Protein 6.9 g/dL (5.7-8.2)
[2023-12-30] MEDS: TPN PER PHARMACY IV NR (20:20)
[2023-12-31] VITALS (29 sets, daily range): BP systolic 138–167; BP diastolic 76–118; PULSE 5–115; RESP 14–34; TEMP 97.8–99.1; O2SAT 92–100
[2023-12-31 05:37] LABS: Alanine Aminotransferase 37 U/L (7-40); Albumin 3.1 g/dL (3.2-4.8); Alkaline Phosphatase 102 U/L (46-116); Anion Gap 7 (5-15); Aspartate Aminotransferase 18 U/L (13-40); Bilirubin, Total 0.4 mg/dL (0.2-1.0); Blood Urea Nitrogen 8 mg/dL (9-23); Carbon Dioxide 25 mmol/L (20-30); Chloride 106 mmol/L (98-107); Glucose 135 mg/dL (74-106); Magnesium 1.9 mg/dL (1.6-2.6); Phosphorus 4.5 mg/dL (2.4-5.1); Potassium 3.5 mmol/L (3.5-5.1); Sodium 138 mmol/L (136-145); Total Protein 6.5 g/dL (5.7-8.2); Triglycerides 121 mg/dL (< 150)
[2023-12-31] MEDS: POTASSIUM CHL 20MEQ/100ML 100 ML IV ONE (12:02)
[2023-12-31] MEDS: Ensure HIGH Protein Chocolate 8oz Bottle PO SCH (17:36)
[2023-12-31] MEDS: METOCLOPRAMIDE HCL 5MG/ml INJ 2ml VIAL IV PRN (18:25)
[2023-12-31] MEDS: TPN PER PHARMACY IV NR (20:06)
[2023-12-31] MEDS: MELATONIN 5 MG TAB PO SCH (21:30)
[2023-12-31] MEDS: CEFEPIME 2GM/50ML NS 50 ML IV SCH (21:30)
[2024-01-01] VITALS (30 sets, daily range): BP systolic 131–158; BP diastolic 81–97; PULSE 75–121; RESP 15–34; TEMP 98.3–99.8; O2SAT 93–100
[2024-01-01 05:11] LABS: Basophils # (auto) 0.1 10 ^3/uL (0-0.2); Basophils % (auto) 1.1 % (0.0-2.0); Eosinophils # (auto) 0.3 10 ^3/uL (0-0.8); Hematocrit 33.4 % (36.0-46.0); Hemoglobin 10.9 g/dL (12.2-16.2); Lymphocytes # (auto) 4.9 10 ^3/uL (0.4-5.4); Lymphocytes % (auto) 36.8 % (10.0-50.0); Mean Corpuscular Hemoglobin 29.7 pg (28.0-32.0); Mean Corpuscular Hgb Conc. 32.6 g/dL (32.0-36.0); Mean Corpuscular Volume 91.2 fL (80.0-100.0); Monocytes % (auto) 7.4 % (0.0-12.0); Neutrophils % (auto) 52.7 % (37.0-80.0); Red Blood Cells 3.66 10^6/uL (4.0-5.20); Red Cell Distribution Width 19.5 % (11.8-14.3); White Blood Cell 13.3 10^3/uL (4.4-10.8)
[2024-01-01 05:34] LABS: Alanine Aminotransferase 32 U/L (7-40); Albumin 3.2 g/dL (3.2-4.8); Alkaline Phosphatase 96 U/L (46-116); Anion Gap 9 (5-15); Aspartate Aminotransferase 14 U/L (13-40); Bilirubin, Total 0.3 mg/dL (0.2-1.0); Blood Urea Nitrogen 12 mg/dL (9-23); Carbon Dioxide 25 mmol/L (20-30); Chloride 106 mmol/L (98-107); Glucose 141 mg/dL (74-106); Magnesium 1.8 mg/dL (1.6-2.6); Phosphorus 2.7 mg/dL (2.4-5.1); Potassium 3.8 mmol/L (3.5-5.1); Sodium 140 mmol/L (136-145)
[2024-01-01 05:35] LABS: Total Protein 6.7 g/dL (5.7-8.2)
[2024-01-01] MEDS ORDERED: TPN PER PHARMACY IV NR (20:00)
[2024-01-02] VITALS (34 sets, daily range): BP systolic 127–164; BP diastolic 76–99; PULSE 75–101; RESP 16–30; TEMP 97.5–99.2; O2SAT 93–100
[2024-01-02] MEDS: CHOLESTYRAMINE 4 GM POWDER PO SCH (11:00)
[2024-01-03] VITALS (33 sets, daily range): BP systolic 139–172; BP diastolic 84–107; PULSE 74–107; RESP 15–28; TEMP 97.8–99; O2SAT 94–100
[2024-01-03 06:23] LABS: Basophils # (auto) 0.1 10 ^3/uL (0-0.2); Basophils % (auto) 0.7 % (0.0-2.0); Eosinophils # (auto) 0.3 10 ^3/uL (0-0.8); Eosinophils % (auto) 3.1 % (0.0-7.0); Hematocrit 32.4 % (36.0-46.0); Hemoglobin 10.6 g/dL (12.2-16.2); Lymphocytes # (auto) 5.4 10 ^3/uL (0.4-5.4); Lymphocytes % (auto) 52.4 % (10.0-50.0); Mean Corpuscular Hemoglobin 30.2 pg (28.0-32.0); Mean Corpuscular Hgb Conc. 32.8 g/dL (32.0-36.0); Mean Corpuscular Volume 92.1 fL (80.0-100.0); Monocytes # (auto) 0.7 10 ^3/uL (0-1.3); Monocytes % (auto) 7.1 % (0.0-12.0); Neutrophils # (auto) 3.8 10 ^3/uL (1.6-8.6); Neutrophils % (auto) 36.7 % (37.0-80.0); Red Blood Cells 3.52 10^6/uL (4.0-5.20); Red Cell Distribution Width 18.6 % (11.8-14.3); White Blood Cell 10.3 10^3/uL (4.4-10.8)
[2024-01-03 06:33] LABS: Chloride 109 mmol/L (98-107); Potassium 3.6 mmol/L (3.5-5.1); Sodium 141 mmol/L (136-145)
[2024-01-03 06:34] LABS: Anion Gap 8 (5-15); Calcium 9.5 mg/dL (8.5-10.1); Carbon Dioxide 24 mmol/L (20-30)
[2024-01-03 06:39] LABS: BUN/Creatinine Ratio 18.3 (10.0-20.0); Blood Urea Nitrogen 11 mg/dL (9-23); Glucose 130 mg/dL (74-106)
[2024-01-03 08:24] LABS: Platelet Estimate Adequate; RBC Morphology Normal
[2024-01-03] MEDS: PANTOPRAZOLE 40 MG/10 ML VIAL INJ IV SCH (09:39)
[2024-01-03] MEDS: LORazepam 2MG/ML-1ML VIAL IV PRN (21:54)
[2024-01-04] VITALS (24 sets, daily range): BP systolic 113–174; BP diastolic 85–142; PULSE 71–98; RESP 13–25; TEMP 97.6–99.4; O2SAT 98–100
[2024-01-04 06:30] LABS: Basophils # (auto) 0.1 10 ^3/uL (0-0.2); Basophils % (auto) 0.6 % (0.0-2.0); Eosinophils # (auto) 0.3 10 ^3/uL (0-0.8); Eosinophils % (auto) 3.2 % (0.0-7.0); Hemoglobin 10.8 g/dL (12.2-16.2); Lymphocytes # (auto) 4.8 10 ^3/uL (0.4-5.4); Lymphocytes % (auto) 51.4 % (10.0-50.0); Mean Corpuscular Hemoglobin 29.8 pg (28.0-32.0); Mean Corpuscular Hgb Conc. 32.6 g/dL (32.0-36.0); Mean Corpuscular Volume 91.5 fL (80.0-100.0); Monocytes # (auto) 0.6 10 ^3/uL (0-1.3); Monocytes % (auto) 6.9 % (0.0-12.0); Neutrophils # (auto) 3.5 10 ^3/uL (1.6-8.6); Neutrophils % (auto) 37.9 % (37.0-80.0); Nucleated Red Blood Cells % 0.2 %; Red Blood Cells 3.61 10^6/uL (4.0-5.20); Red Cell Distribution Width 18.6 % (11.8-14.3); White Blood Cell 9.3 10^3/uL (4.4-10.8)
[2024-01-04 06:34] LABS: Anion Gap 9 (5-15); Carbon Dioxide 24 mmol/L (20-30); Chloride 110 mmol/L (98-107); Potassium 3.4 mmol/L (3.5-5.1); Sodium 143 mmol/L (136-145)
[2024-01-04 06:36] LABS: Calcium 9.6 mg/dL (8.5-10.1)
[2024-01-04 06:40] LABS: Glucose 102 mg/dL (74-106)
[2024-01-04 06:41] LABS: BUN/Creatinine Ratio 17.6 (10.0-20.0); Blood Urea Nitrogen 9 mg/dL (9-23)
[2024-01-04] MEDS: POTASSIUM EFFERVESENT TAB 25 MEQ PO ONE (11:24)
[2024-01-04] MEDS: MAGNESIUM SULFATE 1GM/100ML 100 ML IV SCH ×2 (12:32→13:45)
[2024-01-04] MEDS ORDERED: HYDROmorphone HCL 2 MG/ML VL/or syr IV PRN (15:30)
[2024-01-05] VITALS (21 sets, daily range): BP systolic 135–176; BP diastolic 70–114; PULSE 69–109; RESP 9–29; TEMP 97.7–99.5; O2SAT 97–100
[2024-01-05] MEDS: hydrALAZINE HCL 20 MG/ML VL IV PRN (04:02)
[2024-01-05 05:17] LABS: Basophils # (auto) 0.1 10 ^3/uL (0-0.2); Basophils % (auto) 0.7 % (0.0-2.0); Eosinophils # (auto) 0.2 10 ^3/uL (0-0.8); Eosinophils % (auto) 1.8 % (0.0-7.0); Hematocrit 35.5 % (36.0-46.0); Hemoglobin 11.6 g/dL (12.2-16.2); Lymphocytes % (auto) 38.5 % (10.0-50.0); Mean Corpuscular Hemoglobin 29.9 pg (28.0-32.0); Mean Corpuscular Hgb Conc. 32.6 g/dL (32.0-36.0); Mean Corpuscular Volume 91.8 fL (80.0-100.0); Monocytes # (auto) 0.8 10 ^3/uL (0-1.3); Monocytes % (auto) 6.1 % (0.0-12.0); Neutrophils # (auto) 6.9 10 ^3/uL (1.6-8.6); Neutrophils % (auto) 52.9 % (37.0-80.0); Nucleated Red Blood Cells % 0.1 %; Red Blood Cells 3.87 10^6/uL (4.0-5.20); Red Cell Distribution Width 18.1 % (11.8-14.3)
[2024-01-05 05:44] LABS: Alanine Aminotransferase 31 U/L (7-40); Albumin 3.4 g/dL (3.2-4.8); Alkaline Phosphatase 105 U/L (46-116); Anion Gap 9 (5-15); Aspartate Aminotransferase 16 U/L (13-40); BUN/Creatinine Ratio 11.3 (10.0-20.0); Bilirubin, Total 0.3 mg/dL (0.2-1.0); Blood Urea Nitrogen 6 mg/dL (9-23); Calcium 9.5 mg/dL (8.5-10.1); Carbon Dioxide 22 mmol/L (20-30); Chloride 110 mmol/L (98-107); Glucose 112 mg/dL (74-106); Magnesium 1.7 mg/dL (1.6-2.6); Potassium 3.6 mmol/L (3.5-5.1); Sodium 141 mmol/L (136-145)
[2024-01-05 05:45] LABS: Total Protein 7.1 g/dL (5.7-8.2)
[2024-01-06] VITALS (41 sets, daily range): BP systolic 137–170; BP diastolic 83–98; PULSE 76–109; RESP 11–28; TEMP 97.6–98.7; O2SAT 87–100
[2024-01-06 05:57] LABS: Basophils # (auto) 0.1 10 ^3/uL (0-0.2); Basophils % (auto) 0.6 % (0.0-2.0); Eosinophils # (auto) 0.3 10 ^3/uL (0-0.8); Hematocrit 35.8 % (36.0-46.0); Hemoglobin 11.7 g/dL (12.2-16.2); Lymphocytes # (auto) 4.5 10 ^3/uL (0.4-5.4); Lymphocytes % (auto) 47.8 % (10.0-50.0); Mean Corpuscular Hemoglobin 30.2 pg (28.0-32.0); Mean Corpuscular Hgb Conc. 32.8 g/dL (32.0-36.0); Mean Corpuscular Volume 92.2 fL (80.0-100.0); Monocytes # (auto) 0.7 10 ^3/uL (0-1.3); Monocytes % (auto) 7.3 % (0.0-12.0); Neutrophils # (auto) 3.8 10 ^3/uL (1.6-8.6); Neutrophils % (auto) 41.3 % (37.0-80.0); Nucleated Red Blood Cells % 0.1 %; Red Blood Cells 3.88 10^6/uL (4.0-5.20); Red Cell Distribution Width 17.8 % (11.8-14.3); White Blood Cell 9.3 10^3/uL (4.4-10.8)
[2024-01-06 06:18] LABS: Alanine Aminotransferase 36 U/L (7-40); Alkaline Phosphatase 102 U/L (46-116); Anion Gap 10 (5-15); BUN/Creatinine Ratio 10.5 (10.0-20.0); Blood Urea Nitrogen 6 mg/dL (9-23); Calcium 9.7 mg/dL (8.5-10.1); Carbon Dioxide 23 mmol/L (20-30); Chloride 108 mmol/L (98-107); Glucose 102 mg/dL (74-106); Magnesium 1.5 mg/dL (1.6-2.6); Potassium 3.6 mmol/L (3.5-5.1); Sodium 141 mmol/L (136-145)
[2024-01-06 06:19] LABS: Albumin 3.4 g/dL (3.2-4.8); Aspartate Aminotransferase 18 U/L (13-40); Bilirubin, Total 0.4 mg/dL (0.2-1.0); Total Protein 7.1 g/dL (5.7-8.2)
[2024-01-06] MEDS: MAGNESIUM SULFATE 1GM/100ML 100 ML IV ONE ×3 (06:46→14:37)
[2024-01-07] VITALS (70 sets, daily range): BP systolic 139–161; BP diastolic 77–103; PULSE 74–115; RESP 12–27; TEMP 98.2–99; O2SAT 96–100
[2024-01-07 08:57] LABS: Basophils # (auto) 0 10 ^3/uL (0-0.2); Basophils % (auto) 0.2 % (0.0-2.0); Eosinophils # (auto) 0.1 10 ^3/uL (0-0.8); Eosinophils % (auto) 1.2 % (0.0-7.0); Hematocrit 37.7 % (36.0-46.0); Hemoglobin 12.2 g/dL (12.2-16.2); Lymphocytes # (auto) 4.6 10 ^3/uL (0.4-5.4); Lymphocytes % (auto) 38.1 % (10.0-50.0); Mean Corpuscular Hemoglobin 29.6 pg (28.0-32.0); Mean Corpuscular Hgb Conc. 32.3 g/dL (32.0-36.0); Mean Corpuscular Volume 91.7 fL (80.0-100.0); Monocytes # (auto) 0.7 10 ^3/uL (0-1.3); Neutrophils # (auto) 6.5 10 ^3/uL (1.6-8.6); Neutrophils % (auto) 54.5 % (37.0-80.0); Nucleated Red Blood Cells % 0.2 %; Red Blood Cells 4.11 10^6/uL (4.0-5.20)
[2024-01-07 09:28] LABS: Anion Gap 11 (5-15); Carbon Dioxide 22 mmol/L (20-30); Chloride 108 mmol/L (98-107); Potassium 3.4 mmol/L (3.5-5.1); Sodium 141 mmol/L (136-145)
[2024-01-07 09:30] LABS: Calcium 9.6 mg/dL (8.5-10.1)
[2024-01-07 09:34] LABS: Glucose 103 mg/dL (74-106)
[2024-01-07 09:35] LABS: Blood Urea Nitrogen 7 mg/dL (9-23); Magnesium 1.6 mg/dL (1.6-2.6)
[2024-01-07] MEDS: MAGNESIUM SULFATE 1GM/100ML 100 ML IV SCH (12:40)
[2024-01-07] MEDS: POTASSIUM CHLORIDE 20 MEQ, LIDOCAINE 1% (LOCAL ANESTH.) 2 ML in SODIUM CHL 0.9% 100 ML IV ONE (13:29)
[2024-01-07] MEDS: BISACODYL 10 MG RECT SUPP PR ONE (15:16)
[2024-01-08] VITALS (82 sets, daily range): BP systolic 101–153; BP diastolic 58–98; PULSE 69–103; RESP 13–28; TEMP 98.1–99.6; O2SAT 84–100
[2024-01-08 05:35] LABS: Anion Gap 10 (5-15); Carbon Dioxide 22 mmol/L (20-30); Chloride 109 mmol/L (98-107); Potassium 3.3 mmol/L (3.5-5.1); Sodium 141 mmol/L (136-145)
[2024-01-08 05:36] LABS: Calcium 9.5 mg/dL (8.7-10.4)
[2024-01-08 05:38] LABS: Basophils # (auto) 0.1 10 ^3/uL (0-0.2); Basophils % (auto) 0.6 % (0.0-2.0); Eosinophils # (auto) 0.2 10 ^3/uL (0-0.8); Eosinophils % (auto) 2.3 % (0.0-7.0); Hematocrit 36.3 % (36.0-46.0); Hemoglobin 11.8 g/dL (12.2-16.2); Lymphocytes % (auto) 46.8 % (10.0-50.0); Mean Corpuscular Hemoglobin 30.2 pg (28.0-32.0); Mean Corpuscular Hgb Conc. 32.6 g/dL (32.0-36.0); Mean Corpuscular Volume 92.4 fL (80.0-100.0); Monocytes # (auto) 0.7 10 ^3/uL (0-1.3); Monocytes % (auto) 8.3 % (0.0-12.0); Neutrophils # (auto) 3.6 10 ^3/uL (1.6-8.6); Nucleated Red Blood Cells % 0.2 %; Red Blood Cells 3.92 10^6/uL (4.0-5.20); Red Cell Distribution Width 17.6 % (11.8-14.3); White Blood Cell 8.6 10^3/uL (4.4-10.8)
[2024-01-08 05:41] LABS: BUN/Creatinine Ratio 11.3 (10.0-20.0); Blood Urea Nitrogen 6 mg/dL (9-23); Glucose 94 mg/dL (74-106); Magnesium 1.6 mg/dL (1.6-2.6)
[2024-01-08 06:22] LABS: Anisocytosis Slight; Platelet Estimate Adequate
[2024-01-08 06:23] LABS: Stomatocytes Few
[2024-01-08] MEDS ORDERED: MAGNESIUM OXIDE 400 MG TAB PO ONE (10:45)
[2024-01-08] MEDS ORDERED: POTASSIUM CHL 20 Meq TABLET PO ONE (10:45)
[2024-01-08] MEDS: POTASSIUM CHL 20MEQ/100ML 100 ML IV SCH (12:40)
[2024-01-08] MEDS: MAGNESIUM SULFATE 1GM/100ML 100 ML IV SCH (12:41)
[2024-01-09] VITALS (102 sets, daily range): BP systolic 138–180; BP diastolic 69–101; PULSE 69–118; RESP 12–100; TEMP 96.3–99.1; O2SAT 89–100
[2024-01-09 09:36] LABS: Anion Gap 9 (5-15); Calcium 9.4 mg/dL (8.5-10.1); Carbon Dioxide 24 mmol/L (20-30); Chloride 108 mmol/L (98-107); Potassium 3.6 mmol/L (3.5-5.1); Sodium 141 mmol/L (136-145)
[2024-01-09 09:41] LABS: BUN/Creatinine Ratio 11.5 (10.0-20.0); Blood Urea Nitrogen 6 mg/dL (9-23); Glucose 88 mg/dL (74-106)
[2024-01-09] MEDS ORDERED: MAGNESIUM OXIDE 400 MG TAB PO SCH (10:00)
[2024-01-09] MEDS ORDERED: FLEET ENEMA(ADULT) 135 ML PR ONE (19:30)
[2024-01-09] MEDS: BISACODYL 10 MG RECT SUPP PR ONE (20:36)
[2024-01-10] VITALS (24 sets, daily range): BP systolic 144–163; BP diastolic 87–106; PULSE 78–110; RESP 15–26; TEMP 98.2–98.9; O2SAT 89–100
[2024-01-10 07:09] LABS: Basophils # (auto) 0.1 10 ^3/uL (0-0.2); Basophils % (auto) 0.8 % (0.0-2.0); Eosinophils # (auto) 0.1 10 ^3/uL (0-0.8); Eosinophils % (auto) 1.1 % (0.0-7.0); Hematocrit 40.2 % (36.0-46.0); Hemoglobin 12.7 g/dL (12.2-16.2); Lymphocytes # (auto) 4.8 10 ^3/uL (0.4-5.4); Lymphocytes % (auto) 39.3 % (10.0-50.0); Mean Corpuscular Hemoglobin 29.5 pg (28.0-32.0); Mean Corpuscular Hgb Conc. 31.6 g/dL (32.0-36.0); Mean Corpuscular Volume 93.5 fL (80.0-100.0); Monocytes # (auto) 0.9 10 ^3/uL (0-1.3); Monocytes % (auto) 7.8 % (0.0-12.0); Neutrophils # (auto) 6.2 10 ^3/uL (1.6-8.6); Nucleated Red Blood Cells % 0.2 %; White Blood Cell 12.1 10^3/uL (4.4-10.8)
[2024-01-10 07:26] LABS: Alanine Aminotransferase 43 U/L (7-40); Albumin 3.4 g/dL (3.2-4.8); Alkaline Phosphatase 103 U/L (46-116); Anion Gap 13 (5-15); Aspartate Aminotransferase 24 U/L (13-40); Calcium 9.7 mg/dL (8.5-10.1); Carbon Dioxide 20 mmol/L (20-30); Chloride 108 mmol/L (98-107); Glucose 91 mg/dL (74-106); Magnesium 1.4 mg/dL (1.6-2.6); Potassium 3.5 mmol/L (3.5-5.1); Sodium 141 mmol/L (136-145)
[2024-01-10 07:27] LABS: BUN/Creatinine Ratio 8.6 (10.0-20.0); Bilirubin, Total 0.3 mg/dL (0.2-1.0); Blood Urea Nitrogen < 5 mg/dL (9-23); Total Protein 7.2 g/dL (5.7-8.2)
[2024-01-10] MEDS: FLEET ENEMA(ADULT) 135 ML PR PRN (18:15)
[2024-01-11] VITALS (16 sets, daily range): BP systolic 140–182; BP diastolic 92–122; PULSE 74–106; RESP 10–26; TEMP 97.5–98.2; O2SAT 83–100
[2024-01-11 05:25] LABS: Anion Gap 13 (5-15); Carbon Dioxide 21 mmol/L (20-30); Chloride 109 mmol/L (98-107); Potassium 3.3 mmol/L (3.5-5.1); Sodium 143 mmol/L (136-145)
[2024-01-11 05:26] LABS: Calcium 9.8 mg/dL (8.7-10.4)
[2024-01-11 05:31] LABS: BUN/Creatinine Ratio 13.6 (10.0-20.0); Blood Urea Nitrogen 8 mg/dL (9-23); Glucose 105 mg/dL (74-106)
[2024-01-11 05:44] LABS: Basophils # (auto) 0.1 10 ^3/uL (0-0.2); Basophils % (auto) 0.6 % (0.0-2.0); Eosinophils # (auto) 0.1 10 ^3/uL (0-0.8); Eosinophils % (auto) 1.2 % (0.0-7.0); Hematocrit 37.7 % (36.0-46.0); Hemoglobin 12.7 g/dL (12.2-16.2); Lymphocytes # (auto) 4.3 10 ^3/uL (0.4-5.4); Lymphocytes % (auto) 39.6 % (10.0-50.0); Mean Corpuscular Hemoglobin 30.9 pg (28.0-32.0); Mean Corpuscular Hgb Conc. 33.7 g/dL (32.0-36.0); Mean Corpuscular Volume 91.6 fL (80.0-100.0); Monocytes # (auto) 0.9 10 ^3/uL (0-1.3); Monocytes % (auto) 8.2 % (0.0-12.0); Neutrophils # (auto) 5.4 10 ^3/uL (1.6-8.6); Neutrophils % (auto) 50.4 % (37.0-80.0); Nucleated Red Blood Cells % 0.1 %; Red Blood Cells 4.11 10^6/uL (4.0-5.20); Red Cell Distribution Width 17.1 % (11.8-14.3); White Blood Cell 10.8 10^3/uL (4.4-10.8)
[2024-01-11] MEDS: POTASSIUM CHL 20MEQ/100ML 100 ML IV SCH (14:26)
[2024-01-12] VITALS (15 sets, daily range): BP systolic 146–173; BP diastolic 90–112; PULSE 84–115; RESP 16–25; TEMP 97.4–99.2; O2SAT 8–100
[2024-01-12 09:50] LABS: Basophils # (auto) 0.1 10 ^3/uL (0-0.2); Basophils % (auto) 0.6 % (0.0-2.0); Eosinophils # (auto) 0.2 10 ^3/uL (0-0.8); Eosinophils % (auto) 1.4 % (0.0-7.0); Hematocrit 43.5 % (36.0-46.0); Hemoglobin 13.8 g/dL (12.2-16.2); Lymphocytes % (auto) 39.3 % (10.0-50.0); Mean Corpuscular Hemoglobin 29.5 pg (28.0-32.0); Mean Corpuscular Hgb Conc. 31.7 g/dL (32.0-36.0); Mean Corpuscular Volume 93.2 fL (80.0-100.0); Monocytes % (auto) 8.1 % (0.0-12.0); Neutrophils # (auto) 6.4 10 ^3/uL (1.6-8.6); Neutrophils % (auto) 50.6 % (37.0-80.0); Nucleated Red Blood Cells % 0.1 %; Red Blood Cells 4.66 10^6/uL (4.0-5.20); Red Cell Distribution Width 16.6 % (11.8-14.3); White Blood Cell 12.6 10^3/uL (4.4-10.8)
[2024-01-12 09:55] LABS: Anion Gap 14 (5-15); Carbon Dioxide 20 mmol/L (20-30); Chloride 110 mmol/L (98-107); Sodium 144 mmol/L (136-145)
[2024-01-12 09:56] LABS: Calcium 9.9 mg/dL (8.5-10.1)
[2024-01-12 10:01] LABS: BUN/Creatinine Ratio 11.6 (10.0-20.0); Blood Urea Nitrogen 8 mg/dL (9-23); Glucose 91 mg/dL (74-106); Magnesium 1.4 mg/dL (1.6-2.6)
[2024-01-12] MEDS: PROCHLORPERAZINE EDISYLATE 5 MG/ML 2ML VIAL IV PRN (14:16)
[2024-01-13] VITALS (14 sets, daily range): BP systolic 126–165; BP diastolic 84–104; PULSE 90–107; RESP 12–23; TEMP 97.6–98.8; O2SAT 95–100
[2024-01-13] MEDS: FLEET ENEMA(ADULT) 135 ML PR ONE (13:30)
[2024-01-14] VITALS (17 sets, daily range): BP systolic 125–176; BP diastolic 82–121; PULSE 85–124; RESP 15–28; TEMP 97.8–98.5; O2SAT 95–99
[2024-01-14 09:52] LABS: Basophils # (auto) 0 10 ^3/uL (0-0.2); Basophils % (auto) 0.3 % (0.0-2.0); Eosinophils # (auto) 0.1 10 ^3/uL (0-0.8); Eosinophils % (auto) 1.2 % (0.0-7.0); Hematocrit 43.8 % (36.0-46.0); Hemoglobin 13.9 g/dL (12.2-16.2); Lymphocytes % (auto) 34.7 % (10.0-50.0); Mean Corpuscular Hemoglobin 29.9 pg (28.0-32.0); Mean Corpuscular Hgb Conc. 31.7 g/dL (32.0-36.0); Mean Corpuscular Volume 94.4 fL (80.0-100.0); Monocytes # (auto) 0.9 10 ^3/uL (0-1.3); Monocytes % (auto) 8.2 % (0.0-12.0); Neutrophils # (auto) 6.4 10 ^3/uL (1.6-8.6); Neutrophils % (auto) 55.6 % (37.0-80.0); Nucleated Red Blood Cells % 0.2 %; Red Blood Cells 4.64 10^6/uL (4.0-5.20); White Blood Cell 11.5 10^3/uL (4.4-10.8)
[2024-01-14 10:03] LABS: Chloride 111 mmol/L (98-107); Potassium 3.6 mmol/L (3.5-5.1); Sodium 146 mmol/L (136-145)
[2024-01-14 10:04] LABS: Anion Gap 15 (5-15); Calcium 9.6 mg/dL (8.5-10.1); Carbon Dioxide 20 mmol/L (20-30)
[2024-01-14 10:09] LABS: BUN/Creatinine Ratio 19.4 (10.0-20.0); Blood Urea Nitrogen 12 mg/dL (9-23); Glucose 109 mg/dL (74-106)
[2024-01-14] MEDS: GASTROGRAFIN 120 ML SOL ONE (15:10)
[2024-01-15] VITALS (12 sets, daily range): BP systolic 127–176; BP diastolic 81–114; PULSE 88–114; RESP 14–24; TEMP 97.4–99; O2SAT 89–98
[2024-01-15] MEDS: LABETALOL HCL 5 MG/ML 4ML SYRINGE IV PRN (00:17)
[2024-01-15] MEDS: LABETALOL HCL 5 MG/ML ML 20ML VIAL IV ONE (00:17)
[2024-01-15] MEDS: METOCLOPRAMIDE HCL 10 MG TAB PO SCH (11:51)
[2024-01-16] VITALS (25 sets, daily range): BP systolic 144–176; BP diastolic 92–118; PULSE 84–115; RESP 14–21; TEMP 97.6–98.8; O2SAT 88–100
[2024-01-16] MEDS: IOHEXOL 350 MG/ML 100ML IJ ONE (12:44)
[2024-01-17] VITALS (25 sets, daily range): BP systolic 136–173; BP diastolic 93–120; PULSE 85–107; RESP 13–20; TEMP 97.4–98.4; O2SAT 89–99
[2024-01-17] MEDS ORDERED: PANT40TA2 PO (11:19)
[2024-01-17] MEDS ORDERED: METO-281 PO (11:19)
[2024-01-17] MEDS ORDERED: CLON0.1T PO (11:19)
[2024-01-17] MEDS: IOHEXOL 350 MG/ML 100ML IJ ONE (14:38)
[2024-01-17 14:54] LABS: Chloride 111 mmol/L (98-107); Potassium 3.3 mmol/L (3.5-5.1); Sodium 148 mmol/L (136-145)
[2024-01-17 14:55] LABS: Anion Gap 13 (5-15); Carbon Dioxide 24 mmol/L (20-30)
[2024-01-17 14:56] LABS: Calcium 9.5 mg/dL (8.5-10.1)
[2024-01-17 15:00] LABS: BUN/Creatinine Ratio 28.2 (10.0-20.0); Blood Urea Nitrogen 22 mg/dL (9-23); Glucose 110 mg/dL (74-106)
[2024-01-17] MEDS ORDERED: POTASSIUM CHL 20 Meq TABLET PO ONE (15:30)
[2024-01-17] MEDS: D5W/SOD CHL 0.45%/KCL 20MEQ 1,000 ML IV SCH (15:51)
[2024-01-17] MEDS: POTASSIUM CHLORIDE 20 MEQ, LIDOCAINE 1% (LOCAL ANESTH.) 2 ML in SODIUM CHL 0.9% 100 ML IV ONE (16:26)
[2024-01-17] MEDS ORDERED: ENOXAPARIN SOD 150 MG/1 ML SYRINGE SC ONE (17:30)
[2024-01-17] MEDS ORDERED: TPN PER PHARMACY 0 ML IV SCH (17:30)
[2024-01-17 18:10] LABS: Magnesium 1.6 mg/dL (1.6-2.6)
[2024-01-17 18:12] LABS: Phosphorus 3.4 mg/dL (2.4-5.1)
[2024-01-17] MEDS: ENOXAPARIN SOD 150 MG/1 ML SYRINGE SC SCH (18:21)
[2024-01-17] MEDS: AMINO ACID INFUSION IN D5W 2,000 ML IV NR (21:13)
[2024-01-18] VITALS (18 sets, daily range): BP systolic 120–179; BP diastolic 72–113; PULSE 84–104; RESP 16–23; TEMP 98.3–98.9; O2SAT 96–98
[2024-01-18] MEDS ORDERED: DEXTROSE (50%) 50ML SYRG IV SCH
[2024-01-18] MEDS: InsuLIN REG 1unit/0.01ml Soln (100units/ml) SC SCH (00:24)
[2024-01-18] MEDS: ACCU-CHEK COMFORT CURVE STRIP VI SCH (00:24)
[2024-01-18 06:01] LABS: Basophils # (auto) 0.1 10 ^3/uL (0-0.2); Basophils % (auto) 0.9 % (0.0-2.0); Eosinophils # (auto) 0.1 10 ^3/uL (0-0.8); Eosinophils % (auto) 0.9 % (0.0-7.0); Hematocrit 40.2 % (36.0-46.0); Hemoglobin 12.9 g/dL (12.2-16.2); Lymphocytes # (auto) 4.3 10 ^3/uL (0.4-5.4); Lymphocytes % (auto) 39.2 % (10.0-50.0); Mean Corpuscular Hemoglobin 29.6 pg (28.0-32.0); Mean Corpuscular Hgb Conc. 32.2 g/dL (32.0-36.0); Monocytes # (auto) 0.9 10 ^3/uL (0-1.3); Monocytes % (auto) 8.2 % (0.0-12.0); Neutrophils # (auto) 5.5 10 ^3/uL (1.6-8.6); Neutrophils % (auto) 50.8 % (37.0-80.0); Nucleated Red Blood Cells % 0.3 %; Red Blood Cells 4.36 10^6/uL (4.0-5.20); Red Cell Distribution Width 16.5 % (11.8-14.3); White Blood Cell 10.9 10^3/uL (4.4-10.8)
[2024-01-18 06:22] LABS: Alanine Aminotransferase 49 U/L (7-40); Albumin 3.2 g/dL (3.2-4.8); Alkaline Phosphatase 112 U/L (46-116); Anion Gap 11 (5-15); Aspartate Aminotransferase 38 U/L (13-40); BUN/Creatinine Ratio 23.9 (10.0-20.0); Blood Urea Nitrogen 17 mg/dL (9-23); Carbon Dioxide 23 mmol/L (20-30); Chloride 109 mmol/L (98-107); Glucose 135 mg/dL (74-106); Magnesium 1.4 mg/dL (1.6-2.6); Potassium 3.2 mmol/L (3.5-5.1); Sodium 143 mmol/L (136-145); Triglycerides 170 mg/dL (< 150)
[2024-01-18 06:23] LABS: Bilirubin, Total 0.4 mg/dL (0.2-1.0); Phosphorus 2.7 mg/dL (2.4-5.1); Total Protein 6.7 g/dL (5.7-8.2)
[2024-01-18] MEDS: POTASSIUM CHL 20MEQ/100ML 100 ML IV SCH (06:59)
[2024-01-18] MEDS: MAGNESIUM SULFATE 1GM/100ML 100 ML IV SCH (09:52)
[2024-01-18] MEDS: POTASSIUM PHOSPHATE 33 MEQ in D5W 5% 250 ML IV ONE (17:29)
[2024-01-18] MEDS: TPN PER PHARMACY IV NR (20:26)
[2024-01-19] VITALS (23 sets, daily range): BP systolic 129–166; BP diastolic 78–109; PULSE 77–92; RESP 12–24; TEMP 97.8–98.7; O2SAT 94–100
[2024-01-19 05:15] LABS: Alanine Aminotransferase 48 U/L (7-40); Albumin 2.8 g/dL (3.2-4.8); Alkaline Phosphatase 100 U/L (46-116); Anion Gap 6 (5-15); Aspartate Aminotransferase 31 U/L (13-40); BUN/Creatinine Ratio 26.3 (10.0-20.0); Bilirubin, Total 0.3 mg/dL (0.2-1.0); Blood Urea Nitrogen 15 mg/dL (9-23); Calcium 8.5 mg/dL (8.5-10.1); Carbon Dioxide 23 mmol/L (20-30); Chloride 110 mmol/L (98-107); Glucose 141 mg/dL (74-106); Magnesium 1.6 mg/dL (1.6-2.6); Phosphorus 2.8 mg/dL (2.4-5.1); Potassium 3.3 mmol/L (3.5-5.1); Sodium 139 mmol/L (136-145); Total Protein 5.8 g/dL (5.7-8.2)
[2024-01-19 10:28] LABS: Hemoglobin 12.3 g/dL (12.2-16.2); Mean Corpuscular Hemoglobin 29.9 pg (28.0-32.0); Mean Corpuscular Hgb Conc. 32.4 g/dL (32.0-36.0); Mean Corpuscular Volume 92.3 fL (80.0-100.0); Red Blood Cells 4.11 10^6/uL (4.0-5.20); Red Cell Distribution Width 15.8 % (11.8-14.3); White Blood Cell 8.5 10^3/uL (4.4-10.8)
[2024-01-19 10:32] LABS: Basophils % (manual) 0 (0.0-2.0); Blast Cells 0; Metamyelocytes % 0; Myelocytes % 0; Promyelocytes % 0; Reactive Lymphocytes 0
[2024-01-19 10:50] LABS: Anisocytosis Slight; Band Neutrophils % (manual) 2; Eosinophils % (manual) 1 (0-7); Lymphocytes % (manual) 39 (10.0-50.0); Monocytes % (manual) 8 (0-12); Platelet Estimate Adequate
[2024-01-19] MEDS: MAGNESIUM SULFATE 1GM/100ML 100 ML IV ONE (11:45)
[2024-01-19] MEDS: POTASSIUM PHOSPHATE 26.4 MEQ in SODIUM CHL 0.9% 100 ML IV ONE (12:00)
[2024-01-19] MEDS: IOHEXOL 350 MG/ML 100ML IJ ONE (16:52)
[2024-01-19] MEDS ORDERED: TPN PER PHARMACY IV NR (20:00)
[2024-01-20] VITALS (22 sets, daily range): BP systolic 118–177; BP diastolic 79–111; PULSE 80–97; RESP 12–23; TEMP 98–99; O2SAT 96–99
[2024-01-20 05:05] LABS: Basophils # (auto) 0.1 10 ^3/uL (0-0.2); Basophils % (auto) 1.3 % (0.0-2.0); Eosinophils # (auto) 0.1 10 ^3/uL (0-0.8); Eosinophils % (auto) 1.4 % (0.0-7.0); Hematocrit 37.7 % (36.0-46.0); Lymphocytes # (auto) 3.6 10 ^3/uL (0.4-5.4); Lymphocytes % (auto) 43.4 % (10.0-50.0); Mean Corpuscular Hemoglobin 29.3 pg (28.0-32.0); Mean Corpuscular Hgb Conc. 31.8 g/dL (32.0-36.0); Mean Corpuscular Volume 92.1 fL (80.0-100.0); Monocytes # (auto) 0.7 10 ^3/uL (0-1.3); Monocytes % (auto) 8.7 % (0.0-12.0); Neutrophils # (auto) 3.7 10 ^3/uL (1.6-8.6); Neutrophils % (auto) 45.2 % (37.0-80.0); Nucleated Red Blood Cells % 0.1 %; Red Blood Cells 4.09 10^6/uL (4.0-5.20); White Blood Cell 8.2 10^3/uL (4.4-10.8)
[2024-01-20 05:21] LABS: Alanine Aminotransferase 44 U/L (7-40); Albumin 2.6 g/dL (3.2-4.8); Alkaline Phosphatase 98 U/L (46-116); Anion Gap 6 (5-15); Aspartate Aminotransferase 28 U/L (13-40); BUN/Creatinine Ratio 12.2 (10.0-20.0); Blood Urea Nitrogen 6 mg/dL (9-23); Calcium 8.7 mg/dL (8.7-10.4); Carbon Dioxide 20 mmol/L (20-30); Chloride 112 mmol/L (98-107); Glucose 116 mg/dL (74-106); Potassium 3.5 mmol/L (3.5-5.1); Sodium 138 mmol/L (136-145)
[2024-01-20 05:22] LABS: Bilirubin, Total 0.3 mg/dL (0.2-1.0); Total Protein 5.8 g/dL (5.7-8.2)
[2024-01-21] VITALS (23 sets, daily range): BP systolic 137–174; BP diastolic 87–111; PULSE 83–106; RESP 12–24; TEMP 98.1–99; O2SAT 96–99
[2024-01-21 06:09] LABS: Basophils # (auto) 0 10 ^3/uL (0-0.2); Basophils % (auto) 0.4 % (0.0-2.0); Eosinophils # (auto) 0.1 10 ^3/uL (0-0.8); Eosinophils % (auto) 1.1 % (0.0-7.0); Hematocrit 37.1 % (36.0-46.0); Hemoglobin 12.2 g/dL (12.2-16.2); Lymphocytes # (auto) 3.5 10 ^3/uL (0.4-5.4); Lymphocytes % (auto) 33.1 % (10.0-50.0); Mean Corpuscular Hemoglobin 30.3 pg (28.0-32.0); Mean Corpuscular Hgb Conc. 32.9 g/dL (32.0-36.0); Mean Corpuscular Volume 91.9 fL (80.0-100.0); Monocytes # (auto) 0.8 10 ^3/uL (0-1.3); Monocytes % (auto) 7.4 % (0.0-12.0); Neutrophils # (auto) 6.1 10 ^3/uL (1.6-8.6); Nucleated Red Blood Cells % 0.1 %; Red Blood Cells 4.03 10^6/uL (4.0-5.20); Red Cell Distribution Width 15.6 % (11.8-14.3); White Blood Cell 10.5 10^3/uL (4.4-10.8)
[2024-01-21 06:25] LABS: Anion Gap 7 (5-15); Calcium 8.6 mg/dL (8.5-10.1); Carbon Dioxide 22 mmol/L (20-30); Chloride 109 mmol/L (98-107); Potassium 3.7 mmol/L (3.5-5.1); Sodium 138 mmol/L (136-145)
[2024-01-21 06:31] LABS: BUN/Creatinine Ratio 10.2 (10.0-20.0); Blood Urea Nitrogen < 5 mg/dL (9-23); Glucose 122 mg/dL (74-106)
[2024-01-21] MEDS ORDERED: TPN PER PHARMACY 0 ML IV SCH (14:15)
[2024-01-21] MEDS: FLEET ENEMA(ADULT) 135 ML PR PRN (17:02)
[2024-01-21] MEDS: AMINO ACID INFUSION IN D10W 1,000 ML IV NR (20:07)
[2024-01-22] VITALS (26 sets, daily range): BP systolic 121–156; BP diastolic 80–109; PULSE 74–92; RESP 11–23; TEMP 97.8–98.7; O2SAT 95–100
[2024-01-22 05:34] LABS: Alanine Aminotransferase 52 U/L (7-40); Albumin 2.7 g/dL (3.2-4.8); Alkaline Phosphatase 108 U/L (46-116); Anion Gap 9 (5-15); Aspartate Aminotransferase 26 U/L (13-40); Calcium 8.5 mg/dL (8.5-10.1); Carbon Dioxide 21 mmol/L (20-30); Chloride 110 mmol/L (98-107); Glucose 125 mg/dL (74-106); Magnesium 1.3 mg/dL (1.6-2.6); Phosphorus 2.8 mg/dL (2.4-5.1); Potassium 3.4 mmol/L (3.5-5.1); Sodium 140 mmol/L (136-145); Triglycerides 154 mg/dL (< 150)
[2024-01-22 05:35] LABS: Bilirubin, Total 0.2 mg/dL (0.2-1.0); Total Protein 5.7 g/dL (5.7-8.2)
[2024-01-22 05:46] LABS: BUN/Creatinine Ratio 9.4 (10.0-20.0); Blood Urea Nitrogen < 5 mg/dL (9-23)
[2024-01-22] MEDS: POTASSIUM CHL 20 Meq TABLET PO ONE (06:30)
[2024-01-22] MEDS: MAGNESIUM SULFATE 1GM/100ML 100 ML IV SCH ×2 (06:46→12:40)
[2024-01-22] MEDS: POLYETHYLENE GLYCOL 17 GM PWDR PO SCH (08:35)
[2024-01-22] MEDS ORDERED: ACCU-CHEK COMFORT CURVE STRIP VI SCH (12:00)
[2024-01-22] MEDS ORDERED: InsuLIN REG 1unit/0.01ml Soln (100units/ml) SC SCH (12:00)
[2024-01-22] MEDS ORDERED: DEXTROSE (50%) 50ML SYRG IV SCH (12:00)
[2024-01-22] MEDS: POTASSIUM PHOSP 22MEQ(15MMOLE) in NS 100 ML IV ONE (14:09)
[2024-01-22] MEDS ORDERED: SENNA 8.6 MG TAB PO PRN (14:45)
[2024-01-22] MEDS: TPN PER PHARMACY IV NR (21:11)
[2024-01-23] VITALS (18 sets, daily range): BP systolic 120–154; BP diastolic 69–97; PULSE 76–87; RESP 15–22; TEMP 97.4–98.6; O2SAT 95–99
[2024-01-23 06:03] LABS: Alanine Aminotransferase 43 U/L (7-40); Alkaline Phosphatase 97 U/L (46-116); Anion Gap 6 (5-15); BUN/Creatinine Ratio 14.9 (10.0-20.0); Blood Urea Nitrogen 7 mg/dL (9-23); Calcium 8.5 mg/dL (8.7-10.4); Carbon Dioxide 22 mmol/L (20-30); Chloride 109 mmol/L (98-107); Glucose 130 mg/dL (74-106); Magnesium 1.9 mg/dL (1.6-2.6); Potassium 3.2 mmol/L (3.5-5.1); Sodium 137 mmol/L (136-145)
[2024-01-23 06:04] LABS: Albumin 2.6 g/dL (3.2-4.8); Aspartate Aminotransferase 20 U/L (13-40)
[2024-01-23 06:05] LABS: Bilirubin, Total 0.2 mg/dL (0.2-1.0); Phosphorus 3.5 mg/dL (2.4-5.1); Total Protein 5.6 g/dL (5.7-8.2)
[2024-01-23] MEDS: POTASSIUM CHL 20MEQ/100ML 100 ML IV SCH (13:16)
[2024-01-23] MEDS: TPN PER PHARMACY IV NR (20:07)
[2024-01-24] MEDS ORDERED: ENOXAPARIN SOD 150 MG/1 ML SYRINGE SC SCH (06:00)
== END 2024-01-23 20:35 | disposition short-term general hospital (02) | DRG 4 ==
LOC: ER 06:47 → TELE 13:05 → TELE-CENTR 13:05 → ICU CENTRL 11-08 17:55 → ICU WEST 11-10 06:23 → DOU IN ICU 12-22 16:52
PROVIDERS: ADMIT Internal Medicine; ATTEND Internal Medicine
PROC: 04C50ZZ Extirpation of Matter from Superior Mesenteric Artery, Open Approach (ICD-10-PCS; 2023-11-08)
PROC: 5A1955Z Respiratory Ventilation, Greater than 96 Consecutive Hours (ICD-10-PCS; 2023-11-08)
PROC: 0BH17EZ Insertion of Endotracheal Airway into Trachea, Via Natural or Artificial Opening (ICD-10-PCS; 2023-11-08)
PROC: 0DB80ZZ Excision of Small Intestine, Open Approach (ICD-10-PCS; 2023-11-08)
PROC: 0W9G0ZZ Drainage of Peritoneal Cavity, Open Approach (ICD-10-PCS; 2023-11-08)
PROC: 0DB80ZZ Excision of Small Intestine, Open Approach (ICD-10-PCS; 2023-11-09)
PROC: 0B9J8ZX Drainage of Left Lower Lung Lobe, Via Natural or Artificial Opening Endoscopic, Diagnostic (ICD-10-PCS; 2023-11-18)
PROC: 0B9F8ZX Drainage of Right Lower Lung Lobe, Via Natural or Artificial Opening Endoscopic, Diagnostic (ICD-10-PCS; 2023-11-18)
PROC: 30233N1 Transfusion of Nonautologous Red Blood Cells into Peripheral Vein, Percutaneous Approach (ICD-10-PCS; 2023-11-21)
PROC: 30233K1 Transfusion of Nonautologous Frozen Plasma into Peripheral Vein, Percutaneous Approach (ICD-10-PCS; 2023-11-24)
PROC: 0B110F4 Bypass Trachea to Cutaneous with Tracheostomy Device, Open Approach (ICD-10-PCS; 2023-11-29)
PROC: 02HV33Z Insertion of Infusion Device into Superior Vena Cava, Percutaneous Approach (ICD-10-PCS; 2023-11-29)
PROC: B548ZZA Ultrasonography of Superior Vena Cava, Guidance (ICD-10-PCS; 2023-11-29)
PROC: 05H933Z Insertion of Infusion Device into Right Brachial Vein, Percutaneous Approach (ICD-10-PCS; 2023-12-07)
PROC: B54MZZA Ultrasonography of Right Upper Extremity Veins, Guidance (ICD-10-PCS; 2023-12-07)
PROC: 05HF33Z Insertion of Infusion Device into Left Cephalic Vein, Percutaneous Approach (ICD-10-PCS; principal; 2023-12-16)
PROC: B54NZZA Ultrasonography of Left Upper Extremity Veins, Guidance (ICD-10-PCS; 2023-12-16)
PROC: 02HV33Z Insertion of Infusion Device into Superior Vena Cava, Percutaneous Approach (ICD-10-PCS; 2023-12-28)
PROC: B548ZZA Ultrasonography of Superior Vena Cava, Guidance (ICD-10-PCS; 2023-12-28)
DX: A41.9 Sepsis, unspecified organism (principal); K55.029 Acute infarction of small intestine, extent unspecified; N17.0 Acute kidney failure with tubular necrosis; J69.0 Pneumonitis due to inhalation of food and vomit; I50.31 Acute diastolic (congestive) heart failure; J15.69 Pneumonia due to other Gram-negative bacteria; I13.0 Hypertensive heart and chronic kidney disease with heart failure and stage 1 through stage 4 chronic kidney disease, or unspecified chronic kidney disease; D63.1 Anemia in chronic kidney disease; K56.7 Ileus, unspecified; J96.00 Acute respiratory failure, unspecified whether with hypoxia or hypercapnia; I21.A1 Myocardial infarction type 2; E11.22 Type 2 diabetes mellitus with diabetic chronic kidney disease; D75.839 Thrombocytosis, unspecified; E66.01 Morbid (severe) obesity due to excess calories; F12.10 Cannabis abuse, uncomplicated; I16.0 Hypertensive urgency; E86.0 Dehydration; R65.20 Severe sepsis without septic shock; E11.65 Type 2 diabetes mellitus with hyperglycemia; E83.42 Hypomagnesemia; E87.6 Hypokalemia; F41.9 Anxiety disorder, unspecified; K80.20 Calculus of gallbladder without cholecystitis without obstruction; K91.89 Other postprocedural complications and disorders of digestive system; N18.9 Chronic kidney disease, unspecified; M19.011 Primary osteoarthritis, right shoulder; Y93.G1 Activity, food preparation and clean up; Z93.1 Gastrostomy status; Z68.42 Body mass index [BMI] 45.0-49.9, adult; Z98.51 Tubal ligation status; Z82.49 Family history of ischemic heart disease and other diseases of the circulatory system; Z99.11 Dependence on respirator [ventilator] status; Z79.899 Other long term (current) drug therapy
CPT/HCPCS: 36415; 36569; 36600; 71045; 71275; 73030; 73200; 74018; 74176; 74177; 74250; 75635; 76705; 80048; 80053; 80061; 80069; 80076; 80202; 80307; 81001; 81025; 82140; 82306; 82570; 82805; 82962; 83036; 83605; 83690; 83735; 83880; 83970; 84100; 84132; 84156; 84300; 84443; 84478; 84484; 84702; 85007; 85014; 85018; 85025; 85027; 85049; 85379; 85610; 85730; 86850; 86900; 86901; 86920; 87040; 87070; 87075; 87077; 87081; 87086; 87088; 87186; 87205; 87493; 92507; 92610; 93005; 93306; 93970; 94002; 94003; 94640; 94667; 94668; 97110; 97116; 97163; 97530; 99291; A4605; A4618; C9113; G0378; J0131; J0153; J0171; J0330; J0692; J1100; J1450; J1756; J1815; J1956; J2001; J2185; J2248; J2250; J2405; J2543; J2704; J3480; J3490; J7042; J7060; J7131

== ENCOUNTER 2024-01-30 12:42 | Inpatient (IN) | payer MEDICAID ==
[~2024-01-30] VITALS: Ht 167.6 cm; Wt 154.0 kg
[~2024-01-30 12:42] MED LIST: CLON0.1T PO; CYCL-839 PO; DICL1GEL59 TOP; GABA-339 PO; HYDR1CAP27 PO; HYDR25TA4 PO; METO-281 PO; PANT40TA2 PO; RIZA10TA12 PO; SEMA2INJ3 SC; TOPI50TA53 PO; TRI05TP TOP; TRIA1CAP5 PO
[2024-01-31] VITALS (9 sets, daily range): BP systolic 117–150; BP diastolic 75–95; PULSE 65–91; RESP 18–98; TEMP 97.8–98.7; O2SAT 97–100
[2024-01-31] MEDS ORDERED: ACETAMINOPHEN 325 MG TAB PO PRN (02:15)
[2024-01-31] MEDS ORDERED: HEPARIN DRIP/D5W 100UNITS/ML 250 ML IV SCH (02:15)
[2024-01-31] MEDS ORDERED: MORPHINE SULFATE INJ 2 MG/ml SYRG IV PRN ×2 (02:15)
[2024-01-31] MEDS ORDERED: NITROGLYCERIN 0.4 MG SL TAB SL PRN (02:15)
[2024-01-31 03:34] LABS: Basophils # (auto) 0.1 10 ^3/uL (0-0.2); Basophils % (auto) 1.1 % (0.0-2.0); Eosinophils # (auto) 0.1 10 ^3/uL (0-0.8); Eosinophils % (auto) 1.8 % (0.0-7.0); Hematocrit 29.4 % (36.0-46.0); Hemoglobin 9.6 g/dL (12.2-16.2); Lymphocytes # (auto) 3.3 10 ^3/uL (0.4-5.4); Lymphocytes % (auto) 40.5 % (10.0-50.0); Mean Corpuscular Hemoglobin 29.9 pg (28.0-32.0); Mean Corpuscular Hgb Conc. 32.8 g/dL (32.0-36.0); Mean Corpuscular Volume 91.1 fL (80.0-100.0); Monocytes # (auto) 0.6 10 ^3/uL (0-1.3); Neutrophils # (auto) 4.1 10 ^3/uL (1.6-8.6); Neutrophils % (auto) 49.6 % (37.0-80.0); Nucleated Red Blood Cells % 0.1 %; Red Blood Cells 3.22 10^6/uL (4.0-5.20); Red Cell Distribution Width 15.8 % (11.8-14.3); White Blood Cell 8.2 10^3/uL (4.4-10.8)
[2024-01-31 03:48] LABS: Alanine Aminotransferase 15 U/L (7-40); Albumin 2.4 g/dL (3.2-4.8); Alkaline Phosphatase 81 U/L (46-116); Aspartate Aminotransferase 12 U/L (13-40); BUN/Creatinine Ratio 14.6 (10.0-20.0); Blood Urea Nitrogen 7 mg/dL (9-23); Calcium 8.8 mg/dL (8.7-10.4); Carbon Dioxide 31 mmol/L (20-30); Glucose 97 mg/dL (74-106)
[2024-01-31 03:49] LABS: Bilirubin, Total 0.3 mg/dL (0.2-1.0); Total Protein 5.3 g/dL (5.7-8.2)
[2024-01-31 03:55] LABS: INR 1.07 (0.9-1.15); Partial Thromboplastin Time 49.3 SEC (24.5-34.5); Prothrombin Time 11.3 sec (9.3-11.8)
[2024-01-31 03:56] LABS: Anion Gap 3 (5-15); Chloride 105 mmol/L (98-107); Potassium 3.7 mmol/L (3.5-5.1); Sodium 139 mmol/L (136-145)
[2024-01-31] MEDS: HEPARIN DRIP/D5W 100UNITS/ML 250 ML IV SCH (04:47)
[2024-01-31] MEDS: HYDROcodone-ACET 5/325MG TAB PO PRN (05:53)
[2024-01-31] MEDS: hydrALAZINE HCL 25 MG TAB PO SCH (05:55)
[2024-01-31] MEDS ORDERED: FLEET ENEMA(ADULT) 135 ML PR PRN (10:30)
[2024-01-31] MEDS ORDERED: hydrALAZINE HCL 20 MG/ML VL IV PRN (10:30)
[2024-01-31 11:29] LABS: INR 1.06 (0.9-1.15); Partial Thromboplastin Time 50.4 SEC (24.5-34.5); Prothrombin Time 11.2 sec (9.3-11.8)
[2024-01-31] MEDS: PANTOPRAZOLE 40 MG/10 ML VIAL INJ IV ONE (14:32)
[2024-01-31] MEDS: LACTULOSE 20Gm/30ML SOLN PO ONE (14:33)
[2024-01-31] MEDS: ENOXAPARIN SOD 150 MG/1 ML SYRINGE SC SCH (21:46)
[2024-02-01] VITALS (8 sets, daily range): BP systolic 132–147; BP diastolic 78–87; PULSE 64–104; RESP 16–20; TEMP 97.8–98.8; O2SAT 96–100
[2024-02-01] MEDS: PANTOPRAZOLE 40 MG/10 ML VIAL INJ IV SCH (10:42)
[2024-02-01 11:07] LABS: Urine Bacteria FEW /hpf (None Seen); Urine Blood Negative /uL (Negative); Urine Clarity Turbid (Clear); Urine Color Yellow (Yellow); Urine Mucus FEW (None Seen); Urine Protein, UAD 1+ (Negative); Urine Specific Gravity 1.022 (1.001-1.035); Urine Urobilinogen 8 mg/dL (Negative); Urine WBC 7 /hpf (0 - 5); Urine pH 8.5 (5.0-9.0)
[2024-02-02 01:00] VITALS: BP 156/93; PULSE 79; RESP 18; TEMP 98.5; O2SAT 100
[2024-02-02 05:00] VITALS: BP 147/84; PULSE 78; RESP 18; TEMP 98.3; O2SAT 100
[2024-02-02 06:47] LABS: Basophils # (auto) 0.1 10 ^3/uL (0-0.2); Basophils % (auto) 0.9 % (0.0-2.0); Eosinophils # (auto) 0.1 10 ^3/uL (0-0.8); Eosinophils % (auto) 1.9 % (0.0-7.0); Hematocrit 29.1 % (36.0-46.0); Hemoglobin 9.6 g/dL (12.2-16.2); Lymphocytes # (auto) 3.1 10 ^3/uL (0.4-5.4); Lymphocytes % (auto) 48.7 % (10.0-50.0); Mean Corpuscular Hemoglobin 29.9 pg (28.0-32.0); Mean Corpuscular Volume 90.8 fL (80.0-100.0); Monocytes # (auto) 0.4 10 ^3/uL (0-1.3); Monocytes % (auto) 6.1 % (0.0-12.0); Neutrophils # (auto) 2.7 10 ^3/uL (1.6-8.6); Neutrophils % (auto) 42.4 % (37.0-80.0); Nucleated Red Blood Cells % 0.1 %; Red Cell Distribution Width 15.5 % (11.8-14.3); White Blood Cell 6.3 10^3/uL (4.4-10.8)
[2024-02-02 08:00] VITALS: PULSE 74; RESP 20; O2SAT 98
[2024-02-02 08:17] VITALS: PULSE 67
[2024-02-02 09:00] VITALS: BP 156/75; PULSE 74; RESP 20; TEMP 98.1; O2SAT 98
[2024-02-02] MEDS ORDERED: PANT40TA2 PO (10:23)
[2024-02-02] MEDS ORDERED: APIX5TAB PO (10:23)
[2024-02-02 13:00] VITALS: BP 146/83; PULSE 71; RESP 19; TEMP 97.9; O2SAT 100
[2024-02-02] MEDS: ONDANSETRON HCL 4 MG/2 ML VIAL IV PRN (14:46)
== END 2024-02-02 15:30 | disposition home or self-care (01) | DRG 862 ==
LOC: TELE-EAST 23:17
PROVIDERS: ADMIT Internal Medicine; ATTEND Internal Medicine
DX: Z48.815 Encounter for surgical aftercare following surgery on the digestive system (principal); I26.99 Other pulmonary embolism without acute cor pulmonale; Z68.43 Body mass index [BMI] 50.0-59.9, adult; K80.20 Calculus of gallbladder without cholecystitis without obstruction; E66.01 Morbid (severe) obesity due to excess calories; D64.9 Anemia, unspecified; Z79.899 Other long term (current) drug therapy
CPT/HCPCS: 36415; 80053; 81001; 84443; 85025; 85610; 85730; 87081; 97110; 97116; 97163; 97530; G0378; J2405; J2470